=== PATIENT | female | born 1945 | race Caucasian/White ===

== ENCOUNTER 2018-11-09 17:40 | Emergency (ER) | payer MEDICARE, OTHER, SELFPAY ==
[2018-11-09 17:42] VITALS: BP 160/90; PULSE 61; RESP 18; TEMP 36.4; O2SAT 97; BMI 19.7
--- NOTE | 2018-11-09 18:00 | ED.DCSUM_ITS ---
History of Present Illness Chief Complaint: Hypertension Informant: Patient Onset: Today Narrative: Here for evaluation of elevated blood pressure at home. States multiple checks at home noted highest systolic 190s over 90. Patient reports she is been on atenolol twice daily for blood pressure for years, also treatment for palpitations. Reports 2 weeks ago her atenolol was decreased in half due to blood pressure systolic 116's. She reports she saw a functional medicine provider who decreased this. She denied any lightheaded symptoms at that time. Denies headache, chest pains, shortness of breath. No nausea vomiting diarrhea. Reports intermittent over 2 weeks noting urinary urgency. No fevers. Reports that while on the normal 25 mg of atenolol her blood pressure would be 120s 130 systolic. She states had blood draws through functional medicine team 2 weeks ago noted potassium 5.8, unclear if this any renal issues, unclear was hemolyzed, was told to go see her physician. Also reports some intermittent tingling in her bilateral toes. There is no weakness. Prior similar symptoms: No Past Medical History - Allergies and Home Meds Allergies/Adverse Reactions: Allergies No Known Allergies Allergy (Verified 11/09/18 17:41) Primary Care Physician: Rekha Lockwood NP-C [Primary Care Provider] - Smoking Status: Never smoker Review of Systems General: Denies: Chills, Fever, Sweats Eyes: Denies: Visual changes - bilaterally, Diplopia ENT: Denies: Rhinorrhea, Sore throat Cardiovascular: Denies: Chest pain, Palpitations Respiratory: Denies: Dyspnea, Cough, Dyspnea on exertion Gastrointestinal: Denies: Abdominal pain, Nausea, Vomiting, Diarrhea, Melena, Hematochezia Genitourinary: Reports: - - Urgency. Denies: Dysuria, Hematuria, Frequency Musculoskeletal: Denies: Back pain, Extremity Pain Skin: Denies: Rash, Wounds Neurological: Denies: Headache, Weakness, Numbness Physical Exam Vital Signs/Narrative: Vital Signs Temp Pulse Resp BP Pulse Ox 11/09/18 17:42 97.6 F L 61 18 160/90 H 97 Inital Vital Signs reviewed: Yes General: Well nourished, Well developed, No Acute Distress Head: Normocephalic, Atraumatic Eyes: Perrl, EOMI ENT: Moist mucous membranes, No rhinorrhea Neck: Supple, Nontender Cardiovascular: Regular rate, Regular rhythm, No murmurs Respiratory: No distress, CTA bilaterally, Chest nontender Abdomen: Soft, Nontender, Nondistended, Normal bowel sounds Back: Nontender, Normal Inspection Extremities: Nontender, No edema Skin: Normal color, No rash Neurological: Alert, Oriented x3, Cranial nerves II-XII grossly intact, Normal Strength, Normal Sensation Psychological: - - Mild anxious Diagnostic/Tx/Re-eval Abnormal Lab Results 11/09/18 11/09/18 11/09/18 18:07 18:07 18:20 WBC 5.7 RBC 4.26 Hgb 13.3 Hct 38.2 MCV 89.7 MCH 31.2 MCHC 34.8 RDW 13.0 RDW Differential 42.4 Plt Count 209 MPV 9.7 Immature Gran % (Auto) 0.200 Neut % (Auto) 63.8 Lymph % (Auto) 24.5 Sublette % (Auto) 9.9 Eos % (Auto) 0.9 Baso % (Auto) 0.7 Absolute Neuts (auto) 3.6 Absolute Lymphs (auto) 1.39 Total Counted Not Reportable Sodium 127 L Potassium 3.6 Chloride 94 L Carbon Dioxide 27.0 Anion Gap 6 BUN 17 Creatinine 0.77 Estim Creat Clear Calc 45.24 Est GFR (MDRD) Af Amer 95 Est GFR (MDRD) Non-Af 78 BUN/Creatinine Ratio 22.2 H Glucose 96 Calcium 8.7 Urine Color Yellow Urine Clarity Clear Urine pH 7.0 Ur Specific Atwood 1.010 Urine Protein 15 H Urine Glucose (UA) Normal Urine Ketones 50 H Urine Occult Blood 150 H Urine Nitrite Negative Urine Bilirubin Negative Urine Urobilinogen Normal Ur Leukocyte Esterase Negative Urine RBC 5-10 SEEN Urine WBC 0 SEEN Ur Squamous Epith Cells 0-5 SEEN Urine Bacteria 0 SEEN Urine Mucus 0 SEEN - Medical Decision Making Patient nontoxic, vitals stable. Recheck labs potassium 3.6, she is reassured. However sodium 127. She had paperwork with sodium being 134 a week ago. Normal creatinine. She denies any alcohol history. Denies tobacco history. Urine negative for infection did note hematuria. I did send for urine sodium and urine creatinine for evaluation of her hyponatremia. Blood pressure triage 160/90, monitored without intervention 146/75. Discussed with patient checking her blood pressure in the morning and prior to bedtime and keep in a log. She will maintain her current regimen. She is given follow-up with urology due to hematuria. She will see her PCP as scheduled in 3 days for recheck labs and testing as needed. Signs and symptoms discussed to return, significant other was in the room. All questions were answered. ED Disposition - Plan for ED Patient: Disposition: Home or Assisted Living Diagnosis: Elevated blood pressure reading in office with diagnosis of hypertension, Hyponatremia, Hematuria Instructions: HYPERTENSION, Established, Hyponatremia, Hematuria Referrals: Rekha Lockwood NP-C [Primary Care Provider] - Keep Guido appointment Keila Esposito MD [STAFF PHYSICIAN] - 5-7 Days Additional Instructions: Blood pressure 160/90 in triage, repeat 146/75 without treatment. Continue your blood pressure medication. Potassium 3.6. Sodium 127 in the lab, I did send for urine creatinine and urine sodium for further evaluation. Follow-up with your doctor for discussion. Hematuria in urine, no infection. Follow-up with urology for further evaluation.
[2018-11-09 18:21] LABS: Absolute Lymphocyte Count 1.39 X10^3/ul (0.83-4.51); Absolute Neutrophil Count 3.6 X10^3/uL (2.0-7.7); Basophil# 0.04 X10^3/uL; Basophil% 0.7 % (0-1); Eosinophil# 0.05 X10^3/uL; Eosinophils% 0.9 % (0-5); Hematocrit 38.2 % (37-47); Hemoglobin 13.3 g/dl (12.0-15.0); Lymphocyte # 1.39 X10^3/ul (4.0); Lymphocyte % 24.5 % (19-41); Mean Corp Hgb Conc 34.8 g/gl (32-36); Mean Corpuscular Hgb 31.2 pg (27.0-32.0); Mean Corpuscular Volume 89.7 fL (81-99); Mean Platelet Vol. 9.7 fl (6.2-12.0); Monocyte# 0.56 X10^3/uL; Monocyte% 9.9 % (0-10); Neutrophil # 3.63 X10^3/uL (2.7-7.7); Neutrophil % 63.8 % (47-70); Platelet Count 209 K/mm3 (150-450); RBC Distribution Width SD 42.4 fl (35.1-43.9); Red Blood Count 4.26 M/mm3 (4.2-5.4); White Blood Count 5.7 K/mm3 (4.4-11.0)
[2018-11-09 18:22] LABS: POSITIVE COUNT NO; POSITIVE DIFFERENTIAL NO; POSITIVE MORPHOLOGY NO
[2018-11-09 18:25] LABS: Anion Gap 6 (5-15); BUN 17 mg/dL (7-18); BUN/Creat Ratio 22.2 RATIO (10-20); Calcium,Total 8.7 mg/dL (8.5-10.1); Chloride 94 mmol/L (98-107); Creatinine, Serum 0.77 mg/dL (0.55-1.02); EST Glomerular Filtration Rate 78 mL/min (>60); Est Glom Filt Rate - Afr Amer 95 mL/min (>60); Estimated Creatinine Clearance 45.24 ml/min; Glucose 96 mg/dL (74-106); Potassium 3.6 mmol/L (3.5-5.1); Sodium Level 127 mmol/L (136-145)
[2018-11-09 18:25] LABS: Bacteria 0 SEEN /hpf (None Seen); Mucous, Urine 0 SEEN /hpf (<or=2+); White Blood Cells 0 SEEN /hpf (0-5)
[2018-11-09 18:29] LABS: Color, Urine Yellow (Yellow); Glucose, Dipstick Normal (Normal); Ketone-Dipstick 50 mg/dl (Negative); Leukocyte Esterase-Dipstick Negative /ul (Negative); Nitrite-Dipstick Negative (Negative); Occult Blood-Urine 150 /ul (Negative); Protein-Dipstick 15 mg/dl (Negative); Urine Bilirubin Dipstick Negative (Negative); Urine Clarity Clear (Clear); Urine Urobilinogen Normal (Normal)
[2018-11-09 18:35] LABS: Red Blood Cells-Urine 5-10 SEEN /hpf (0-5); Squamous Epithelial Cells - UA 0-5 SEEN /hpf (5-10)
[2018-11-09 20:00] VITALS: BP 151/80
[2018-11-09 20:03] LABS: Urine Sodium 75 mmol/L (Not Establ.)
== END 2018-11-09 19:50 | disposition home or self-care (01) ==
PROVIDERS: Emergency Provider Emergency Medicine; Family Provider Nurse Practitioner Family; PCP Nurse Practitioner Family
DX: I10 Essential (primary) hypertension (principal); E87.1 Hypo-osmolality and hyponatremia; R31.9 Hematuria, unspecified; Z79.899 Other long term (current) drug therapy
CPT/HCPCS: 80048; 81001; 82570; 84300; 85025; 99284; A4216

== ENCOUNTER → 2018-11-11 | Outpatient (CLI) | payer MEDICARE, OTHER, SELFPAY ==
[2018-11-09 17:42] VITALS: BMI 19.7
[2018-11-11 17:54] LABS: Anion Gap 11 (5-15); BUN 17 mg/dL (7-18); BUN/Creat Ratio 21.7 RATIO (10-20); Chloride 98 mmol/L (98-107); Creatinine, Serum 0.78 mg/dL (0.55-1.02); EST Glomerular Filtration Rate 77 mL/min (>60); Est Glom Filt Rate - Afr Amer 93 mL/min (>60); Glucose 97 mg/dL (74-106); Sodium Level 134 mmol/L (136-145)
== END | disposition home or self-care (01) ==
LOC: MTLAB 16:32
PROVIDERS: Family Provider Nurse Practitioner Family; PCP Nurse Practitioner Family; Referring Provider Urology; Visit Provider Urology
DX: E87.1 Hypo-osmolality and hyponatremia (principal)
CPT/HCPCS: 36415; 80048

== ENCOUNTER → 2018-11-19 | Outpatient (CLI) | payer MEDICARE, OTHER, SELFPAY ==
[2018-11-09 17:42] VITALS: BMI 19.7
--- NOTE | 2018-11-19 07:46 | CT_ITS ---
STUDY: CT ABDOMEN AND PELVIS WITH AND WITHOUT CONTRAST REASON FOR EXAM: Female, 73 years old. Hematuria RADIATION DOSAGE (If Supplied By Facility): CTDIvol = ( 7.34 ) mGy, DLP = ( 864.43 ) mGycm TECHNIQUE: Transaxial images were obtained from the dome of the diaphragm to the symphysis pubis without oral contrast. 100 IV Isovue 300 was administered. Sagittal and coronal images were reconstructed. Individualized dose optimization techniques were used for this CT. COMPARISON: None. FINDINGS: The visualized lung bases are unremarkable. The visualized portions of the heart are within normal limits. There is a right hepatic 1 cm hepatic hypodensity as well as a left hepatic 1.1 cm hypodensity, both resolving on the delayed phase. No suspicious appearing hepatic lesions are present. Normal gallbladder and extrahepatic biliary system. Normal spleen. Normal pancreas. Normal bilateral adrenal glands. Normal right kidney. Normal left kidney. There is a left renal 1.3 cm upper pole cyst and 0.9 cm midpole cyst. Normal visualized stomach. Normal small intestine. Normal colon. Colonic diverticulosis is present. Normal abdominal aorta. Normal inferior vena cava. Normal retroperitoneum. Normal urinary bladder. Normal abdominal wall. Normal osseous structures. Moderate degenerative changes are present in the lower lumbar and visualized thoracic spine. CT/CT Abd/Pelvis W/WO Contrast IMPRESSION: No cause for patient's hematuria identified. Left renal cysts. Hepatic hemangiomata measuring up to 1.1 cm. Colonic diverticulosis without evidence of inflammation. Electronically Signed: Dennis Ruff, at 17:09 EDT Tel , Service support ,
== END | disposition home or self-care (01) ==
LOC: CT 07:44
PROVIDERS: Family Provider Nurse Practitioner Family; PCP Nurse Practitioner Family; Referring Provider Urology; Visit Provider Urology
DX: R31.29 Other microscopic hematuria (principal)
CPT/HCPCS: 74178; Q9967

== ENCOUNTER 2019-03-15 05:30 | Day surgery (SDC) | payer MEDICARE, OTHER, SELFPAY ==
[2019-01-24 09:27] VITALS: BMI 19.7
[2019-02-28 14:08] VITALS: BMI 19.7
--- NOTE | 2019-03-10 13:50 | EKG12_ITS ---
Test Reason : PREOP Blood Pressure : / mmHG Vent. Rate : 059 BPM Atrial Rate : 059 BPM P-R Int : 158 ms QRS Dur : 088 ms QT Int : 404 ms P-R-T Axes : 077 073 054 degrees QTc Int : 399 ms Sinus bradycardia Possible Left atrial enlargement Borderline ECG Confirmed by DEIDRA JONES, BHARATH ([id number]), newspaper editor MOUNA BREEN ([id number]) on 03/11/2019 1:25:11 PM Referred By: Akilah Kaur Confirmed By:JENN GAY MD
[2019-03-10 14:45] LABS: Hematocrit 44.5 % (37-47); Hemoglobin 15.3 g/dL (12.0-15.0); Mean Corp Hgb Conc 34.4 g/dL (32-36); Mean Corpuscular Hgb 31.9 pg (27.0-32.0); Mean Corpuscular Volume 92.7 fL (81-99); Mean Platelet Vol. 10.2 fl (6.2-12.0); Platelet Count 301 K/mm3 (150-450); RBC Distribution Width CV 12.5 % (11.6-14.6); White Blood Count 8.8 K/mm3 (4.4-11.0)
[2019-03-10 14:53] LABS: Prothrombin Time (Protime)PT. 12.7 SECONDS (11.7-14.9)
[2019-03-10 14:54] LABS: Partial Thromboplast Time 31.6 Seconds (24.1-36.2)
[2019-03-10 15:40] LABS: ALB/GLOB Ratio 1.3 RATIO (0.9-2.4); AST(SGOT) 20 U/L (15-37); Alanine Aminotransfer ALT/SGPT 34 U/L (13-56); Albumin, Serum 4.3 g/dL (3.2-5.0); Alkaline Phosphatase 62 U/L (45-117); Anion Gap 9 (5-15); BUN 17 mg/dL (7-18); BUN/Creat Ratio 23.5 RATIO (10-20); Bilirubin, Direct 0.08 mg/dL (0.00-0.30); Calcium,Total 9.4 mg/dL (8.5-10.1); Chloride 95 mmol/L (98-107); Creatinine, Serum 0.72 mg/dL (0.55-1.02); EST Glomerular Filtration Rate 84 mL/min (>60); Est Glom Filt Rate - Afr Amer 102 mL/min (>60); Globulin 3.2 g/dL (2.2-4.2); Glucose 116 mg/dL (74-106); Potassium 4.2 mmol/L (3.5-5.1); Protein, Total 7.5 g/dL (6.4-8.2); Sodium Level 130 mmol/L (136-145); Thyroid Stim Hormone (TSH) 1.67 uIU/mL (0.358-3.74)
[2019-03-15] VITALS (17 sets, daily range): BP systolic 73–148; BP diastolic 31–73; PULSE 45–84; RESP 16–18; TEMP 36.1–36.9; O2SAT 97–100; BMI 19.5
--- NOTE | 2019-03-15 04:04 | PCM.HPOB.BLA ---
- Problem List (1) Incomplete uterovaginal prolapse Status: Acute Comment: plan TVH BSO combo case with brian History and Physical Date of Admission: 03/15/19 Intake Vital Signs 02/28/19 Body Mass Index (BMI) 19.7 02/28/19 Height 5 ft 7 in 02/28/19 Weight: 126 lb 02/28/19 Body Mass Index (BMI) 19.7 02/28/19 Blood Pressure 122/72 H Intake Visit Reasons: ERAS TVH BSO Chief Complaint: pre op TVH BSO ERAS Trimming Operator Required: No Is patient in pain?: No Allergies metoprolol Adverse Reaction (Intermediate, Verified 02/28/19 14:08) palpitations Medications amlodipine 5 mg tablet 5 mg PO DAILY 01/24/19 [History Confirmed 02/28/19] ascorbic acid (vitamin C) 500 mg capsule mg PO cap 01/24/19 [History Confirmed 02/28/19] atenolol 25 mg tablet 25 mg PO DAILY 01/24/19 [History Confirmed 02/28/19] calcium-vitamin D3-vitamin K 500 mg-200 unit-40 mcg tablet tab PO tab 01/24/19 [History Confirmed 02/28/19] cod liver oil capsule 1 cap PO DAILY 01/24/19 [History Confirmed 02/28/19] coenzyme Q10 150 mg capsule 150 mg PO DAILY 01/24/19 [History Confirmed 02/28/19] estradiol 0.01% (0.1 mg/gram) vaginal cream 1 g VAGINAL 2XW 01/24/19 [History Confirmed 02/28/19] estradiol-testosterone 2 mg-50 mg/mL intramuscular oil ea IM 01/24/19 [History Confirmed 02/28/19] lactobacillus combination no.8 3 billion cell capsule 3,000 mmu cells PO DAILY 01/24/19 [History Confirmed 02/28/19] lisinopril 10 mg tablet 10 mg PO DAILY 01/24/19 [History Confirmed 02/28/19] magnesium 250 mg tablet 250 mg PO DAILY 01/24/19 [History Confirmed 02/28/19] niacin 500 mg tablet 500 mg PO DAILY 01/24/19 [History Confirmed 02/28/19] Is last menstrual period known: No Post menopausal: Yes Patient : No : No [facility] Medical History Anxiety (Acute) Diverticulitis (Acute) Hypothyroidism (Acute) Mitral valve prolapse (Acute) Hypertension (Chronic) Surgical History Cataract (Acute) H/O adenoidectomy (Acute) H/O cystoscopy (Acute) H/O tubal ligation (Acute) History of shoulder surgery (Acute) History of tonsillectomy (Acute) Family History Mother Diabetes Hypertension CHD (congenital heart disease) Father CVA (cerebral vascular accident) Hypertension Social History (Updated 02/28/19 @ 14:21 by Akilah Kaur MD) Smoking Status: Never smoker alcohol intake: never substance use type: does not use caffeine: Yes what type of physical activity do you participate in: none, walking seatbelt use: always do you feel safe at home: Yes additional social history: [employer] Patient is retired HPI ERAS [facility] BSO: Details: SHYANNE PETTIT is a 73 year old who presents for preop visit. she is having a [facility] BSO for pelvic prolapse combo case with dr torres. Pregancy History 4 Elective abortions Hx Para 3 Spontaneous abortions Hx # Term Pregnancies Ectopic pregnancies Hx # Pregnancies Multiple births # of living children ROS Const Constitutional: Denies fatigue, fever(s), headache(s), increased appetite, poor appetite, weight gain or weight loss ENT ENT: Denies dizziness or dry mouth Cardio Card: Denies chest pain Resp Resp: Denies cough or dyspnea GI GI: Reports as per HPI; denies abdominal pain, constipation, nausea or vomiting : Reports as per HPI; denies difficulty urinating, painful urination, pelvic pain, urinary frequency, urinary incontinence, urinary hesitancy, urinary urgency, vaginal discharge, vaginal dryness, vaginal odor or vaginal itching Musc Musc: Denies joint pain, back pain or muscle weakness Skin Skin/Breast: Denies hair loss, change in hair, dry skin, breast lump, breast pain or breast skin changes Neuro Neuro: Denies dizziness Psych Psych: Denies anxiety or depression Endo Endo: Denies cold intolerance, excessive sweating, heat intolerance or increased thirst Fredi/Lymph Hematologic/Lymphatic: Denies easy bleeding, Denies easy bruising, Denies enlarged lymph nodes Exam Const General: cooperative, healthy appearing, comfortable, no acute distress, well developed Nutritional Appearance: average body habitus Orientation: alert HENMO Head: normal to inspection, normocephalic Ears: hearing grossly normal bilaterally, external ears normal Nose: external nose normal, nares normal Face and sinus: normal facial exam Neck Neck: normal visual inspection, no lymphadenopathy, trachea midline Thyroid: thyroid normal Chest Chest palpation & inspection: normal inspection of the chest Resp Effort & Inspection: normal respiratory effort Auscultation: clear to auscultation bilaterally Cardio Rate: regular rate Rhythm: regular rhythm Heart Sounds: S1 normal, S2 normal GI Inspection: normal to inspection, non-distended Palpation: soft, no hepatosplenomegaly General: bladder normal to palpation External Female Exam: normal external appearance, normal appearance of the urethra Urethra: normal appearance of the urethra, normal palpation, no discharge Speculum Exam - Vagina: normal appearance of the vagina, normal vaginal discharge Speculum Exam - Cervix: normal appearance of the cervix, nontender Bimanual Exam- Vagina & Uterus: normal bimanual exam, normal vaginal palpation, uterine size normal, bladder normal to palpation, uterine shape normal, No cervical tenderness, uterine mobility normal, uterine consistency normal, normal cervical palpation, uterus non-tender Bimanual Exam- Adnexa, other: normal adnexae, adnexae mobile, no adnexal masses, pelvic support normal Pelvic Support: normal Musc Cervical Spine: other Other: gross motor intact no deficits, full bilateral strength Skin General: no rashes or lesions noted Neuro General: alert, awake, moves all extremities, no focal motor deficits Motor: muscle tone normal throughout Extrem General: normal to inspection, no pedal edema Psych Appearance: grossly normal Mental Status: mental status grossly normal Affect: normal affect Speech and Movement: speech and movement normal Assessment & Plan Problems 1. Incomplete uterovaginal prolapse N81.2 plan TV BSO combo case with brian Ferguson After discussing the patient's diagnosis and treatment plan options, patient wishes to proceed with surgical management. I have discussed with the patient the risks, benefits, and alternatives of the procedure which include but are not limited to risks of anesthesia, bleeding, infection, possible damage to bowel, bladder, or surrounding vasculature which could lead to additional surgery to evaluate any complications. Patient agrees to procedure and wishes to proceed. ACOG/uptodate references given for additional information regarding procedure. Coding Level of Care Code No Charge Diagnoses Incomplete uterovaginal prolapse N81.2
[2019-03-15 06:26] LABS: Bedside Glucose 87 mg/dL (70-110)
[2019-03-15] MEDS: dexAMETHasone 10 MG/ML Vial 8 MG IV (07:00)
[2019-03-15] MEDS: Magnesium Sulfate 4gm/100mL 4 GM/100 ML IV.SOLN. IV (07:00)
[2019-03-15] MEDS: Enoxaparin 40 MG/0.4 ML Syringe SC (07:00)
[2019-03-15] MEDS: Celecoxib 200 MG Capsule 400 MG PO (07:00)
[2019-03-15] MEDS: Scopolamine 1mg/72hr Patch 1 PATCH TRANSDERM. (07:00)
[2019-03-15] MEDS: Gabapentin 600 MG Tablet PO (07:00)
[2019-03-15] MEDS: Acetaminophen 500 MG Tablet 1000 MG PO (07:00)
[2019-03-15] MEDS: Lactated Ringers 1,000 ML 40 ML IV (07:00)
--- NOTE | 2019-03-15 07:30 | HYST_PTH ---
PATIENT: SHYANNE PETTIT LOC: [facility] [place] U#:[id number] AGE/SX: 73/F ROOM: RE03/15/[address]: Dr. Akilah Kaur MD : 1945 BED: DIS: 03/16/2019 SPEC #: [id number] RECD: 03/15/19 11:02 STATUS: CASSIDY RENestor #: [id number] ASHLEY: 03/15/19 07:[address]: Akilah Kaur DEPT: SURGICAL PATHOLOGY RECD BY: Waylon Grace ENTERED: 03/15/19 11:14 SP TYPE: HYSTERECT OTHR DR: MD Dr. Keila Marie MD Debra Lehr, FRUIT HARVESTER-C Tissues: Uterus, NOS Procedures: Surgery Specimen Level V HEADER OPERATION: ERAS, vaginal hysterectomy, BSO PRE-OP DIAGNOSIS: Incomplete uterovaginal prolapse TISSUE SUBMITTED: Uterus, bilateral fallopian tubes and ovaries MICROSCOPIC DIAGNOSIS Uterus, hysterectomy: Cervix - nabothian cysts. Endometrium - proliferative endometrium with focal simple cystic hyperplasia without atypia. Myometrium - microscopic leiomyoma and focal adenomyosis. Right and left ovaries - corpora albicantia. Right and left fallopian tubes - hydrosalpinx and benign paratubal cyst. AM:chey 03/16/19 COMMENT Case has been reviewed in consultation with Dr. Alcaraz who concurs with the above diagnosis. IDC:LARRY MICROSCOPIC DESCRIPTION Slides are reviewed. GROSS DESCRIPTION Received in fixative is one container labeled with the patient's name and designated uterus. The specimen consists of a uterus with attached cervix, detached fallopian tube and ovary x2, one of which contains a suture. The uterus with cervix measures 11 x 5.5 x 4 cm and weighs 98 gm. The ectocervix is oval and grossly unremarkable. The endocervical canal measures 5.5 cm in length and is grossly unremarkable. The triangular endometrial cavity measures 4 x 4.5 x 2.5 cm. The reddish-bar endometrium measures 0.1 cm in average thickness. The myometrium measures 2.2 cm in average thickness and contains a rubbery, bar nodule measuring 0.8 cm and present in the inferior endometrium. The fallopian tube without suture measures 3 cm in length and 0.6 cm in average diameter including a smooth, glistening cyst measuring 1 cm in greatest dimension. The adjacent ovary is light bar in color and measures 4.2 x 1.5 x 1 cm. Serial sections of the ovary do not reveal mass lesions. The fallopian tube with suture measures 5 cm in length and 0.6 cm in average diameter and is disrupted in its mid portion. The adjacent ovary is light yellow-bar in color measuring 3 x 1.6 x 1 cm. Serial sections of the ovary do not reveal mass lesions. Executive Producer sections are submitted as follows: 1 - anterior cervix, 2?- posterior cervix, 3 - anterior uterine wall with myometrial mass, 4 - anterior myometrial wall, 5?&?6??posterior myometrial wall, 7 - fallopian tube without suture, sectioned and totally submitted, 8??ovary adjacent to fallopian tube with no suture, 9 - fallopian tube with no suture, personal banking representative sections, 10 - ovary adjacent to fallopian tube with suture, personal banking representative sections. / AM:chey 03/15/19 TC:5 CPT: 95026
[2019-03-15] MEDS: Lubricating Jelly 60 GM Tube 30 GM TOPICAL (08:05)
[2019-03-15] MEDS: Vasopressin 20 UNITS/ML Vial (08:11)
--- NOTE | 2019-03-15 10:31 | PCM.OPRPT ---
Problem List (1) Incomplete uterovaginal prolapse Status: Acute Comment: plan TVH BSO combo case with brian Report of Operation Date of Procedure: 03/15/19 Pre-Operative Diagnosis: Incomplete uterovaginal prolapse Post-Operative Diagnosis: Same Surgery/Procedure Performed:: TVH BSO Description of Surgical Findings:: Normal uterus tubes and ovaries right paratubal cyst hoop maker helper machine: Keila Esposito Type of Anesthesia:: General Special Medications: none Specimen's removed: Uterus tubes and ovaries Drains: schmidt Estimated Blood Loss (mL): 50 Fluids Replaced: Crystalloid Description of Procedure: Patient was taken to the operating room and was placed under general anesthesia was prepped and draped in normal sterile fashion in the dorsal lithotomy position. Preoperative antibiotics and SCDs and Schmidt catheter was placed inside the bladder. Weighted speculum was placed in the vagina and the anterior and posterior lip of the cervix was grasped with 2 Jose clamps and circumferentially injected with dilute vasopressin. A circumferential incision was made with a scalpel and the posterior cul-de-sac was entered into sharply and a longneck speculum was placed. The anterior cul-de-sac was also dissected down and entered into sharply and the uterosacral ligaments were clamped cut and suture ligated bilaterally followed by the cardinal ligaments which were Clamped cut and suture ligated bilaterally with 0 Monocryl. The uterus serially descended and progressive bites were taken bilaterally up to the level of the utero-ovarian ligament bilaterally which was clamped transected and double ligated with 0 Monocryl suture and 0 Vicryl free tie. Bilateral fallopian tubes and ovaries were well visualized and noted be within normal limits and the bilateral fallopian tubes and ovaries were transected across the base with a Keke clamp and removed and sutured with 0 Vicryl suture. Excellent hemostasis was noted. Posterior peritoneum was reapproximated through the posterior vaginal cuff and bilateral uterosacral ligaments across the posterior cul-de-sac skimming along to provide apical support to the vagina. The vagina was closed with [id number] 0 Vicryl pop offs including the posterior and anterior peritoneum in the reapproximation. Excellent hemostasis was noted. All instruments removed from the vagina clear urine was noted at the end of the procedure. Please see additional operative report for additional information. Multi Select Codes - Urinary/Genital Urinary/Genital CPT Codes: 94908 TVH+BS/O <250gr uterus
[2019-03-15] MEDS: Estrogens,Conj. 1 Tube 1 DOSE (11:05)
[2019-03-15] MEDS: Lactated Ringers 1,000 ML 70 ML IV (12:00)
[2019-03-15] MEDS: Ondansetron 4 MG/2 ML Vial IV (12:01)
--- NOTE | 2019-03-15 12:48 | PCM.OPRPT ---
Problem List (1) Urethral hypermobility Status: Acute (2) Incomplete uterovaginal prolapse Status: Acute Comment: plan TVH BSO combo case with brian Report of Operation Date of Procedure: 03/15/19 Pre-Operative Diagnosis: Incomplete uterovaginal prolapse, urethral hypermobility Post-Operative Diagnosis: same Surgery/Procedure Performed:: posterior repair, bilateral sacrospinous ligament fixation with Dermis, Altis midurethral sling, cystoscopy Description of Surgical Findings:: no significant anterior wall defect noted, anterior repair aborted. Type of Anesthesia:: General Estimated Blood Loss (mL): 150cc Description of Procedure: The patient is a 73-year-old female with incomplete uterovaginal prolapse. After evaluating her, she decided against a pessary and opted for surgical intervention. She subsequently underwent urodynamics testing and office cystoscopy. Informed consent was obtained. She was taken to the operating room and placed on the operating room table. Anesthesia monitored the head, neck, airway, IV access and vital signs throughout the case. Once anesthesia was appropriately administered, the patient was placed into exaggerated dorsal lithotomy in Trendelenburg position. She was prepped and draped in usual sterile fashion. A 16 Irish Velázquez catheter was inserted and the bladder was drained. The hysterectomy, bilateral salpingo-oophorectomy was then performed by Dr. Kaur. She closed the vaginal cuff. Once this was complete, the case was turned to me. At this time the patient had significantly longer posterior vault length compared to anteriorly. I made the decision to repair her posterior wall with dermis and perform the sacrospinous ligament fixation from the posterior aspect to maintain her vault length. The posterior vaginal wall was injected submucosally with vasopressin for hydrostatic dissection and hemostatic control. A midline incision was made and sharp and blunt dissection ensued until the sacrospinous ligaments were freed bilaterally from surrounding tissues. There was no significant rectovaginal fascia at all. The dermis was trimmed to length and using the Capio device, bilaterally Ethibond sutures were passed through the sacrospinous ligaments, and then through the dermis at the corners. A 2-0 Vicryl was used in full-thickness fashion to attach the center of the dermis to the apex. The Ethibond sutures were then also passed through the vaginal mucosa in full-thickness fashion at the apex laterally. The dermis was sutured laterally to the white line bilaterally, using interrupted 2-0 Vicryl. A perineoplasty was then performed. The dermis was tacked with a 2-0 Vicryl suture at the perineoplasty. The vaginal mucosa was then closed in running interlocking fashion with 2-0 Vicryl suture. The midline urethra was injected with vasopressin submucosally and a midline incision approximately 1.5 cm in length was then made. Sharp and blunt dissection was done bilaterally and the Altis trochars were used to pass the urethral sling into the obturator fascia bilaterally. The sling lay flat against the urethra without tension. The tensioning suture was cut and the mucosa was closed in running interlocking fashion. A cystourethroscopy was performed revealing no entrance into the urinary bladder with any foreign object including suture or mesh. Bilateral ureteral jets were observed. The patient's bladder was then emptied with replacement of the Velázquez catheter. The vagina was packed using Premarin cream and vaginal packing. There were no complications during the procedure. She was taken to the recovery room in good condition. Grafts/Implants Used: Dermis, Altis - Complications none - Admit VTE Documentation VTE Present on Admission: Yes VTE Mechan Device Prophylaxis: SCD's VTE Pharm Prophylaxis ordered?: Yes
--- NOTE | 2019-03-15 13:42 | DCINST_ITS ---
Discharge Diet: No Restrictions Discharge Activity: May Shower, - - no driving for 2 weeks May resume sexual activity in: 8 weeks Additional Activity Instructions:: No lifting over 5 pounds, no strenuous activity, no exercising, no intercourse, okay to shower but no tub bathing or swimming, nothing per vagina except she is to continue use of the estrogen cream Call your doctor if your incision/area has: Continuous Slow Oozing, Increased Pain/ Swelling, Foul Smelling Discharge Call your doctor if you observe: Fever of 101 or Higher, Inability to urinate, Inability to have a bowel movement, Shortness of breath, Chest pain, Calf dis comfort, Uncontrolled pain Allergies/Adverse Reactions: Allergies metoprolol Adverse Reaction (Intermediate, Verified 03/15/19 07:41) palpitations Medications to take at Discharge ascorbic acid (vitamin C) 500 mg capsule 500 mg PO DAILY cap 01/24/19 atenolol 25 mg tablet 25 mg PO QHS 01/24/19 cod liver oil capsule 1 cap PO DAILY 01/24/19 coenzyme Q10 150 mg capsule 150 mg PO DAILY 01/24/19 estradiol 0.01% (0.1 mg/gram) vaginal cream 1 g VAGINAL 2XW 01/24/19 lactobacillus combination no.8 3 billion cell capsule 3,000 mmu cells PO DAILY 01/24/19 lisinopril 10 mg tablet 20 mg PO DAILY 01/24/19 magnesium 250 mg tablet 250 mg PO DAILY 01/24/19 Homocysteine Factors 1 cap PO BID 03/08/19 Hydroxyzine HCl 25 mg PO PRN PRN 03/08/19 Meth/Meblue/Sod Phos/Psal/Hyos [Uro-Mp Capsule] 1 ea PO PRN PRN 03/08/19 Vitamin D3/Vitamin K2 (Mk4) [K2 Plus D3 Tablet] 1 ea PO DAILY 03/08/19 Naproxen [Naprosyn] 250 - 500 mg PO Q8H PRN PRN #30 tab 03/15/19 Oxycodone HCl/Acetaminophen [Percocet 5-325] 1 - 2 tab PO Q6H PRN PRN 7 Days #15 tab 03/15/19 The following prescriptions were given: Naproxen [Naprosyn] 250 - 500 mg PO Q8H PRN PRN #30 tab PRN Reason: MILD PAIN [facility]: [facility]. Oxycodone HCl/Acetaminophen [Percocet 5-325] 1 - 2 tab PO Q6H PRN PRN 7 Days #15 tab PRN Reason: Pain Transmission Status: Received by [facility]. Orders to be completed after discharge: Type & Screen Time Frame: 03/08/19, Facility: [facility], Location: Laboratory 12 Lead EKG [CVS] Time Frame: 03/08/19, Facility: [facility], Location: Cardiovascular Services CBC-Complete Blood Cnt No Diff Time Frame: 03/08/19, Facility: [facility], Location: Laboratory Comprehensive Metabolic Profil Time Frame: 03/08/19, Facility: [facility], Location: Laboratory Primary Care Physician: Rekha Lockwood NP-C [Primary Care Provider] - Test Results: Test results from this visit will be discussed in further detail at your follow- up appointment, if applicable. Please Follow Up With: Keila Esposito MD When: call for appt to be seen in 2 weeks Proposed Discharge Date: 03/16/19
[2019-03-15] MEDS: Ketorolac 15 MG/ML Vial IV ×2 (13:53→17:17)
[2019-03-15] MEDS: Ondansetron ODT 4 MG Tablet PO (14:56)
[2019-03-15] MEDS: proMETHazine 25 MG/ML Syringe 12.5 MG IV (17:14)
[2019-03-15] MEDS: Docusate Sodium 100 MG Capsule PO (21:46)
[2019-03-15] MEDS: Cephalexin 500 MG Capsule PO (21:46)
[2019-03-15] MEDS: Lactated Ringers 500 ML IV.SOLN. IV (23:03)
[2019-03-16] VITALS (11 sets, daily range): BP systolic 87–129; BP diastolic 36–55; PULSE 65–80; RESP 16–18; TEMP 36.6–36.7; O2SAT 96–100; BMI 19.5
[2019-03-16] MEDS: Ketorolac 15 MG/ML Vial IV ×2 (00:09→11:23)
[2019-03-16] MEDS: Lactated Ringers 1,000 ML 70 ML IV ×2 (01:24→07:25)
[2019-03-16 05:41] LABS: Hemoglobin 8.9 g/dL (12.0-15.0); Mean Corp Hgb Conc 34.2 g/dL (32-36); Mean Corpuscular Hgb 31.8 pg (27.0-32.0); Mean Corpuscular Volume 92.9 fL (81-99); Mean Platelet Vol. 9.9 fl (6.2-12.0); Platelet Count 197 K/mm3 (150-450); RBC Distribution Width CV 12.3 % (11.6-14.6); RBC Distribution Width SD 42.2 fl (35.1-43.9); White Blood Count 14.1 K/mm3 (4.4-11.0)
--- NOTE | 2019-03-16 07:04 | PCM.PN.OB ---
Patient Problems: Active and Suspected Problems (Last Reviewed 02/28/19 @ 14:08 by Gissel Luis) Urethral hypermobility (Acute) Postoperative anemia due to acute blood loss (Acute) Subjective: pain controlled no CP SOB, significant N/V overnight but now resolved. denies dizziness or lightheadedness but Hg dropped significantly this morning recommend take back for diagnostic laparoscopy - Physical Exam Vitals/I&O's: Vital Signs Temp Pulse Resp BP Pulse Ox 97.8 F 69 16 93/43 L 100 03/16/19 05:50 03/16/19 05:50 03/16/19 05:50 03/16/19 05:50 03/16/19 05:50 Oxygen Flow Rate (L/min) 6 Oxygen Delivery Method Room Air Weight: 124 lb 12.506 oz Body Mass Index (BMI) 19.5 Intake and Output for Last 24 Hours 03/14/19 03/15/19 03/16/19 23:59 23:59 23:59 Intake Total 2575.67 / 2695.67 742.33 / 742.33 Output Total 700 / 1025 625 / 625 Balance 1875.67 / 1670.67 117.33 / 117.33 General: Alert, Oriented x3 Cardiovascular: Regular rate, Regular Rhythm Abdomen: Soft, Non Tender, Non-Distended Laboratory Results 03/15/19 05:55: Crossmatch See Detail 03/16/19 05:14: WBC 14.1 H, RBC 2.80 L, Hgb 8.9 L, Hct 26.0 L, MCV 92.9, MCH 31.8, MCHC 34.2, RDW Std Deviation 42.2, RDW Coeff of Mirza 12.3, Plt Count 197, MPV 9.9 Current Medications Acetaminophen (Tylenol) 1,000 mg PO Q6 [facility] Last Admin: 03/16/19 06:11 Dose: Not Given Documented by: Cephalexin (Keflex) 500 mg PO Q12 [facility] Last Admin: 03/15/19 21:46 Dose: 500 mg Documented by: Docusate Sodium (Colace) 100 mg PO BID [facility] Last Admin: 03/15/19 21:46 Dose: 100 mg Documented by: Enoxaparin Sodium (Lovenox) 40 mg SC DAILY [facility] Lactated Ringer's () 1,000 mls @ 70 mls/hr IV .[id number] [facility] Stop: 03/16/19 11:50 Last Admin: 03/16/19 01:24 Dose: 70 mls/hr Documented by: Ketorolac Tromethamine (Toradol) 15 mg IV Q6 [facility] Stop: 03/16/19 18:01 Last Admin: 03/16/19 06:31 Dose: Not Given Documented by: Magnesium Oxide (Mag-Ox 400) 400 mg PO DAILY PRN PRN PRN Reason: Constipation Nutritional Formula (Lactose Free) (Ensure Enlive) 120 ml PO TIDCM [facility] Ondansetron HCl (Zofran Odt) 4 mg PO Q6H PRN PRN PRN Reason: NAUSEA Last Admin: 03/15/19 14:56 Dose: 4 mg Documented by: Oxycodone HCl (Oxyir) 5 - 10 mg PO Q4H PRN PRN PRN Reason: Pain Score 4-10/10 Promethazine HCl (Phenergan) 12.5 mg IV Q6H PRN PRN PRN Reason: NAUSEA/VOMITING Last Admin: 03/15/19 17:14 Dose: 12.5 mg Documented by: Medical Necessity - Tobacco Use Smoking Status: Never smoker Assessment/Plan All Active Problems (Last Reviewed 02/28/19 @ 14:08 by Gissel Luis) Urethral hypermobility (Acute) Postoperative anemia due to acute blood loss (Acute) Incomplete uterovaginal prolapse (Acute) pod 1 post tvh bso, pelvic floor repair and sling, recommend diagnostic laparoscopy possible laparotomy to evaluate postoperative anemia
[2019-03-16] MEDS: Bupivacaine Mpf 0.5% 30 ML VIAL (07:53)
--- NOTE | 2019-03-16 08:47 | PCM.OPRPT ---
Problem List (1) Incomplete uterovaginal prolapse Status: Acute Comment: plan TVH BSO combo case with brian Report of Operation Date of Procedure: 03/16/19 Pre-Operative Diagnosis: postoperative anemia Post-Operative Diagnosis: same Surgery/Procedure Performed:: diagnostic laparoscopy Description of Surgical Findings:: clot in pelvis, no active bleeding. equipment maint tech: Keila Esposito Type of Anesthesia:: General Special Medications: floseal Specimen's removed: clot Drains: none Estimated Blood Loss (mL): 500 Fluids Replaced: crystalloid Description of Procedure: Patient was taken the operating room and placed under general anesthesia prepped and draped in normal sterile fashion in the dorsolithotomy position. Velázquez catheter was already previously in the bladder. Sponge stick was placed in the vagina. Umbilical area was injected with half percent Marcaine and elevated with towel clamps and a 5 mill meter port was placed under direct visualization after the abdomen was insufflated with a varies needle. Right left lower quadrant ports 5 mm in size were placed and cul-de-sac was well visualized and noted to have old organized clot present with no active areas of bleeding seen. The areas were irrigated and all present blood suctioned and removed. Pressure was let down and again the areas were not noted to have any active bleeding. FloSeal was placed over the top of the cuff due to the clinical presentation and history and excellent hemostasis was noted. All port sites were removed and patient was awoken taken recovery in stable condition after the vaginal manipulator was removed and vaginal sweep was negative. - Admit VTE Documentation VTE Present on Admission: No VTE Mechan Device Prophylaxis: SCD's Multi Select Codes - Urinary/Genital Urinary/Genital CPT Codes: Other Procedure See Report - diagnostic laparoscopy
[2019-03-16] MEDS: Cephalexin 500 MG Capsule PO (09:34)
[2019-03-16] MEDS: Docusate Sodium 100 MG Capsule PO (09:34)
[2019-03-16] MEDS: Acetaminophen 500 MG Tablet 1000 MG PO ×2 (11:23→17:14)
[2019-03-16 11:29] LABS: Absolute Lymphocyte Count 0.76 X10^3/uL (0.83-4.51); Absolute Neutrophil Count 13.1 X10^3/uL (2.0-7.7); Basophil# 0.01 X10^3/uL; Basophil% 0.1 % (0-1); Hematocrit 29.2 % (37-47); Hemoglobin 9.8 g/dL (12.0-15.0); Lymphocyte # 0.76 X10^3/ul (4.0); Lymphocyte % 5.3 % (19-41); Mean Corp Hgb Conc 33.6 g/dL (32-36); Mean Corpuscular Hgb 31.6 pg (27.0-32.0); Mean Corpuscular Volume 94.2 fL (81-99); Mean Platelet Vol. 9.1 fl (6.2-12.0); Monocyte# 0.44 X10^3/uL; Monocyte% 3.1 % (0-10); NRBC Flagged by Analyzer 0 % (0-5); Neutrophil # 13.09 X10^3/uL (2.7-7.7); Neutrophil % 90.7 % (47-70); Platelet Count 209 K/mm3 (150-450); RBC Distribution Width CV 12.5 % (11.6-14.6); White Blood Count 14.4 K/mm3 (4.4-11.0)
[2019-03-16 11:42] LABS: Anion Gap 9 (5-15); BUN 9 mg/dL (7-18); BUN/Creat Ratio 9.2 RATIO (10-20); Calcium,Total 8.3 mg/dL (8.5-10.1); Chloride 97 mmol/L (98-107); Creatinine, Serum 0.98 mg/dL (0.55-1.02); EST Glomerular Filtration Rate 59 mL/min (>60); Est Glom Filt Rate - Afr Amer 72 mL/min (>60); Estimated Creatinine Clearance 45.68 ml/min; Glucose 129 mg/dL (74-106); Potassium 4.3 mmol/L (3.5-5.1); Sodium Level 131 mmol/L (136-145)
[2019-03-16] MEDS: BENZOCAINE/MENTHOL 1 LOZENGE MUCOUS MEM ×2 (14:02→16:16)
--- NOTE | 2019-03-16 16:51 | NURSING ---
Pt voiding but states feels urge to void q hour. Asked pt to void, voided 200cc bladder scanned for 741. Pt denies urge to void. Attempted to straight cath pt began having vaginal bleeding, call placed to Doctor Vincent whom stated she would be on her way in to see this patient and asked that this nurse call Dr. Quarles. Call placed and explained x2 nurses unable to place straight cath d/c swelling and pt having vaginal bleeding. Dr quarles states to place schmidt in room and she will come in and place schmidt cath.
--- NOTE | 2019-03-16 17:56 | PCM.PN.GU ---
Physical Exam Subjective: The patient is awake, ambulatory and tolerating p.o. She would like to be discharged home today. She is concerned about her blood pressure and how to take her blood pressure medications. Her nausea has resolved and her vaginal bleeding has significantly improved. She has been voiding more volume with each void, however she is still leaking urine. - Physical Exam Vital Signs Temp 98.1 F 03/16/19 13:36 Pulse 80 03/16/19 13:36 Resp 18 03/16/19 13:36 BP 129/50 H 03/16/19 13:36 Pulse Ox 97 03/16/19 13:36 Intake & Output 03/14/19 03/15/19 03/16/19 23:59 23:59 23:59 Intake Total 2575.67 / 2695.67 5016.50 / 5016.50 Output Total 700 / 1025 1775 / 1775 Balance 1875.67 / 1670.67 3241.50 / 3241.50 Weight: 56.6 kg 56.6 kg Intake: Oral 3180 / 3180 IV fluid/meds 1000 / 1000 Intake, IV Amount 1575.67 / 1575.67 1836.50 / 1836.50 Cefotan 2 GM In 0.9% Normal 100 / 100 Saline 100 ML @ 200 mls/hr IV PREOP ONE Rx#:[id number] Lactated Ringers 1,000 ML @ 40 1000 / 1000 mls/hr IV .Q25H [facility] Rx#: [id number] Lactated Ringers 1,000 ML @ 70 375.67 / 375.67 1836.50 / 1836.50 mls/hr IV .[id number] [facility] Rx#: [id number] Magnesium Sulfate 4gm/100mL 4 100 / 100 GM/100 ML4 gm In 100 ml @ 200 mls/hr IV PREOP ONE Rx#: [id number] Output: Urine 700 / 1025 1775 / 1775 General: Alert, Oriented x3, Cooperative HEENT: Atraumatic, Normocephalic Oral: Moist Mucosa Neck: Supple Lungs: Normal air movement Cardiovascular: Regular rate, Regular Rhythm Abdomen: Soft Rectal: Exam deferred Neurological: Cranial nerves II-XII grossly intact Psych/Mental Status: Normal Affect Comment: schmidt inserted for 1200cc out after 500cc void. Laboratory Tests Past 24 Hrs 03/15/19 03/16/19 03/16/19 05:55 05:14 11:20 WBC 14.1 H 14.4 H RBC 2.80 L 3.10 L Hgb 8.9 L 9.8 L Hct 26.0 L 29.2 L MCV 92.9 94.2 MCH 31.8 31.6 MCHC 34.2 33.6 RDW Std Deviation 42.2 43.0 RDW Coeff of Mirza 12.3 12.5 Plt Count 197 209 MPV 9.9 9.1 Immature Gran % (Auto) 0.800 Neut % (Auto) 90.7 H Lymph % (Auto) 5.3 L Shackelford % (Auto) 3.1 Eos % (Auto) 0.0 Baso % (Auto) 0.1 Absolute Neuts (auto) 13.1 H Absolute Lymphs (auto) 0.76 L Nucleated RBC % 0 Sodium Potassium Chloride Carbon Dioxide Anion Gap BUN Creatinine Estim Creat Clear Calc Est GFR (MDRD) Af Amer Est GFR (MDRD) Non-Af BUN/Creatinine Ratio Glucose Calcium Crossmatch See Detail 03/16/19 11:20 WBC RBC Hgb Hct MCV MCH MCHC RDW Std Deviation RDW Coeff of Mirza Plt Count MPV Immature Gran % (Auto) Neut % (Auto) Lymph % (Auto) Shackelford % (Auto) Eos % (Auto) Baso % (Auto) Absolute Neuts (auto) Absolute Lymphs (auto) Nucleated RBC % Sodium 131 L Potassium 4.3 Chloride 97 L Carbon Dioxide 25.0 Anion Gap 9 BUN 9 Creatinine 0.98 Estim Creat Clear Calc 45.68 Est GFR (MDRD) Af Amer 72 Est GFR (MDRD) Non-Af 59 L BUN/Creatinine Ratio 9.2 L Glucose 129 H Calcium 8.3 L Crossmatch Medical Necessity - Tobacco Use Smoking Status: Never smoker Assessment/Plan All Active Problems (Last Reviewed 02/28/19 @ 14:08 by Gissel Luis) Postoperative anemia due to acute blood loss (Acute) Urethral hypermobility (Acute) Incomplete uterovaginal prolapse (Acute) Postop day 1 pelvic floor reconstruction, vaginal hysterectomy bilateral salpingo-oophorectomy, mid urethral sling and cystoscopy Exploratory laparoscopy this morning Postop urinary retention Home this evening with Schmidt catheter to straight drain. Instructions to follow-up with me in the office on Thursday. We will go home on half her blood pressure medication dose her blood pressure and we will reevaluate on Thursday
--- NOTE | 2019-03-16 18:04 | DCINST_ITS ---
Discharge Activity: May Not Drive, May Shower, - - no driving for 2 weeks, no strenuous activity, no exercise, no lifting over 5 pounds, nothing per vagina except estrogen cream May resume sexual activity in: 8 weeks Additional Activity Instructions:: No lifting over 5 pounds, no strenuous activity, no exercising, no intercourse, okay to shower but no tub bathing or swimming, nothing per vagina except she is to continue use of the estrogen cream Call your doctor if your incision/area has: Continuous Slow Oozing, Increased Pain/ Swelling, Foul Smelling Discharge Call your doctor if you observe: Fever of 101 or Higher, Inability to urinate, Inability to have a bowel movement, Shortness of breath, Chest pain, Calf discomfort, Uncontrolled pain Additional Instructions: remove schmidt catheter Thursday. Allergies/Adverse Reactions: Allergies metoprolol Adverse Reaction (Intermediate, Verified 03/15/19 07:41) palpitations Medications to take at Discharge ascorbic acid (vitamin C) 500 mg capsule 500 mg PO DAILY cap 01/24/19 cod liver oil capsule 1 cap PO DAILY 01/24/19 coenzyme Q10 150 mg capsule 150 mg PO DAILY 01/24/19 estradiol 0.01% (0.1 mg/gram) vaginal cream 1 g VAGINAL 2XW 01/24/19 lactobacillus combination no.8 3 billion cell capsule 3,000 mmu cells PO DAILY 01/24/19 lisinopril 10 mg tablet 20 mg PO DAILY 01/24/19 magnesium 250 mg tablet 250 mg PO DAILY 01/24/19 Homocysteine Factors 1 cap PO BID 03/08/19 Meth/Meblue/Sod Phos/Psal/Hyos [Uro-Mp Capsule] 1 ea PO PRN PRN 03/08/19 Vitamin D3/Vitamin K2 (Mk4) [K2 Plus D3 Tablet] 1 ea PO DAILY 03/08/19 Naproxen [Naprosyn] 250 - 500 mg PO Q8H PRN PRN #30 tab 03/15/19 Oxycodone HCl/Acetaminophen [Percocet 5-325] 1 - 2 tab PO Q6H PRN PRN 7 Days #15 tab 03/15/19 Atenolol [Tenormin (beta rochelle)] 25 mg PO QHS #0 03/16/19 Cephalexin [Keflex] 500 mg PO Q12 3 Days #6 cap 03/16/19 Docusate Sodium [Colace] 100 mg PO BID #60 cap 03/16/19 Hydroxyzine HCl 25 mg PO PRN PRN #0 03/16/19 Ondansetron [Zofran Odt] 4 mg PO Q6H PRN PRN #20 tab 03/16/19 Phenazopyridine HCl [Pyridium] 200 mg PO TID PRN PRN 7 Days #30 tab 03/16/19 The following prescriptions were given: Docusate Sodium [Colace] 100 mg PO BID #60 cap Prescription Printed Cephalexin [Keflex] 500 mg PO Q12 3 Days #6 cap Prescription Printed Naproxen [Naprosyn] 250 - 500 mg PO Q8H PRN PRN #30 tab PRN Reason: MILD PAIN Transmission Status: Received [place] [id number] [address] [facility]. Oxycodone HCl/Acetaminophen [Percocet 5-325] 1 - 2 tab PO Q6H PRN PRN 7 Days #15 tab PRN Reason: Pain [facility] Status: [facility] [place] [id number] [address] [facility]. Phenazopyridine HCl [Pyridium] 200 mg PO TID PRN PRN 7 Days #30 tab PRN Reason: Bladder Spasms Prescription Printed Ondansetron [Zofran Odt] 4 mg PO Q6H PRN PRN #20 tab PRN Reason: NAUSEA Prescription Printed Orders to be completed after discharge: Type & Screen Time Frame: 03/08/19, Facility: [facility], [facility] ation: Laboratory 12 Lead EKG [CVS] Time Frame: 03/08/19, Facility: [facility], Location: Cardiovascular Services CBC-Complete Blood Cnt No Diff Time Frame: 03/08/19, Facility: [facility], Location: Laboratory Comprehensive Metabolic Profil Time Frame: 03/08/19, Facility: [facility], Location: Laboratory Primary Care Physician: Rekha Lockwood NP-C [Primary Care Provider] - Test Results: Test results from this visit will be discussed in further detail at your follow- up appointment, if applicable. Please Follow Up With: Keila Esposito MD When: Thursday afternoon, call for appt Proposed Discharge Date: 03/16/19
== END 2019-03-16 18:47 | disposition home or self-care (01) ==
LOC: SDC 05:30 → AC 05:31 → MS3 03-16 06:23
PROVIDERS: Anesthesiology; Urology; Family Provider Nurse Practitioner Family; PCP Nurse Practitioner Family; Referring Provider Obstetrics & Gynecology; Visit Provider Obstetrics & Gynecology
PROC: (CPT 58260; principal; 2019-03-15 07:10)
PROC: (CPT 57260; 2019-03-15 07:10)
DX: N81.2 Incomplete uterovaginal prolapse (principal); N36.41 Hypermobility of urethra; N88.8 Other specified noninflammatory disorders of cervix uteri; N85.01 Benign endometrial hyperplasia; D25.9 Leiomyoma of uterus, unspecified; N83.8 Other noninflammatory disorders of ovary, fallopian tube and broad ligament; N70.11 Chronic salpingitis; N83.292 Other ovarian cyst, left side; N83.291 Other ovarian cyst, right side; Z79.899 Other long term (current) drug therapy; I10 Essential (primary) hypertension; F41.9 Anxiety disorder, unspecified; D62 Acute posthemorrhagic anemia; R33.9 Retention of urine, unspecified
CPT/HCPCS: 00840; 00940; 49320; 57250; 57288; 58262; 36415; 80048; 80053; 82248; 82962; 84443; 85025; 85027; 85610; 85730; 86850; 86900; 86901; 86920; 88307; 93005; J7040; J7120; C1758; J2405

== ENCOUNTER → 2019-04-19 10:44 | Outpatient (CLI) | payer MEDICARE, OTHER, SELFPAY ==
[2019-03-16 05:50] VITALS: BMI 19.5
[2019-04-19 11:18] LABS: Absolute Lymphocyte Count 1.64 X10^3/uL (0.83-4.51); Absolute Neutrophil Count 5.4 X10^3/uL (2.0-7.7); Basophil# 0.15 X10^3/uL; Basophil% 1.7 % (0-1); Eosinophil# 0.48 X10^3/uL; Eosinophils% 5.5 % (0-5); Hematocrit 38.2 % (37-47); Hemoglobin 12.5 g/dL (12.0-15.0); Lymphocyte # 1.64 X10^3/ul (4.0); Lymphocyte % 18.8 % (19-41); Mean Corp Hgb Conc 32.7 g/dL (32-36); Mean Corpuscular Volume 97.7 fL (81-99); Mean Platelet Vol. 9.4 fl (6.2-12.0); Monocyte# 1.05 X10^3/uL; NRBC Flagged by Analyzer 0 % (0-5); Neutrophil # 5.39 X10^3/uL (2.7-7.7); Neutrophil % 61.7 % (47-70); Platelet Count 307 K/mm3 (150-450); RBC Distribution Width CV 12.7 % (11.6-14.6); RBC Distribution Width SD 46.1 fl (35.1-43.9); Red Blood Count 3.91 M/mm3 (4.2-5.4); White Blood Count 8.7 K/mm3 (4.4-11.0)
[2019-04-19 11:58] LABS: Estradiol < 11.0 pg/mL; Follicle Stimulating Hormone 67.7 mIU/mL
[2019-04-19 14:58] LABS: Progesterone Level 0.09 ng/mL (See Comment)
== END ==
PROVIDERS: Family Provider Nurse Practitioner Family; PCP Nurse Practitioner Family
DX: D64.9 Anemia, unspecified (principal); Z79.890 Hormone replacement therapy
CPT/HCPCS: 36415; 82670; 83001; 84144; 84403; 85025

== ENCOUNTER → 2019-04-26 17:34 | Outpatient (CLI) | payer MEDICARE, OTHER, SELFPAY ==
[2019-04-26 14:19] VITALS: BMI 19.5
== END ==
PROVIDERS: Family Provider Nurse Practitioner Family; PCP Nurse Practitioner Family; Referring Provider Obstetrics & Gynecology; Visit Provider Obstetrics & Gynecology
DX: N89.8 Other specified noninflammatory disorders of vagina (principal)
CPT/HCPCS: 87070; 87077; 87205

== ENCOUNTER → 2019-10-05 12:23 | Outpatient (CLI) | payer MEDICARE, OTHER, SELFPAY ==
[2019-04-26 14:19] VITALS: BMI 19.5
--- NOTE | 2019-10-05 13:31 | NEURO ---
NCS and/or EMG Patient Report Ordering Doctor: Morelia Arora DATE OF SERVICE: 10/05/19 Matt Torres is a 74-year-old female who presents for electrodiagnostic testing of the left lower limb. She reports intermittent burning in the left foot. Electrodiagnostic findings: Left peroneal motor nerve demonstrates normal distal latency, amplitude and conduction velocity. Normal left tibial motor response. Normal left tibial peroneal F wave. H reflex borderline prolonged bilaterally. Sensory responses within normal limits. On needle EMG, all muscles tested in the upper limb showed no evidence of denervation with normal motor unit action potentials. Electrodiagnostic assessment: This is a normal electrodiagnostic study of the left lower limb. There is no electrodiagnostic evidence for peripheral neuropathy or lumbosacral radiculopathy. If there are any further questions, please do not hesitate to contact me.
== END ==
PROVIDERS: PCP Nurse Practitioner Family; Referring Provider Internal Medicine; Visit Provider Internal Medicine
DX: R20.0 Anesthesia of skin (principal); M79.2 Neuralgia and neuritis, unspecified
CPT/HCPCS: 95886; 95910

== ENCOUNTER → 2020-03-28 08:34 | Outpatient (CLI) | payer MEDICARE, OTHER, SELFPAY ==
[2019-04-26 14:19] VITALS: BMI 19.5
[2020-03-28 10:13] LABS: Absolute Lymphocyte Count 1.76 X10^3/uL (0.83-4.51); Basophil% 1.3 % (0-1); Eosinophil# 0.09 X10^3/uL; Eosinophils% 1.2 % (0-5); Hematocrit 42.5 % (37-47); Hemoglobin 14.2 g/dL (12.0-15.0); Lymphocyte # 1.76 X10^3/ul (4.0); Lymphocyte % 22.6 % (19-41); Mean Corp Hgb Conc 33.4 g/dL (32-36); Mean Corpuscular Hgb 31.2 pg (27.0-32.0); Mean Corpuscular Volume 93.4 fL (81-99); Mean Platelet Vol. 9.8 fl (6.2-12.0); Monocyte# 0.85 X10^3/uL; Monocyte% 10.9 % (0-10); NRBC Flagged by Analyzer 0 % (0-5); Neutrophil # 4.97 X10^3/uL (2.7-7.7); Neutrophil % 63.6 % (47-70); Platelet Count 313 K/mm3 (150-450); RBC Distribution Width CV 13.1 % (11.6-14.6); RBC Distribution Width SD 44.7 fl (35.1-43.9); Red Blood Count 4.55 M/mm3 (4.2-5.4); White Blood Count 7.8 K/mm3 (4.4-11.0)
[2020-03-28 10:38] LABS: Hemoglobin A1c 5.4 % (3.8-5.6)
[2020-03-28 10:40] LABS: Progesterone Level 0.68 ng/mL (See Comment); Vitamin B12 > 2000 pg/mL (211-911)
[2020-03-28 12:47] LABS: ALB/GLOB Ratio 1.2 RATIO (0.9-2.4); AST(SGOT) 22 U/L (15-37); Alanine Aminotransfer ALT/SGPT 33 U/L (13-56); Alkaline Phosphatase 49 U/L (45-117); Anion Gap 9 (5-15); BUN 16 mg/dL (7-18); BUN/Creat Ratio 18.2 RATIO (10-20); Calcium,Total 8.9 mg/dL (8.5-10.1); Chloride 96 mmol/L (98-107); Cholesterol 166 mg/dL (200); Creatinine, Serum 0.88 mg/dL (0.55-1.02); EST Glomerular Filtration Rate 67 mL/min (>60); Est Glom Filt Rate - Afr Amer 81 mL/min (>60); Estradiol < 11.0 pg/mL; Follicle Stimulating Hormone 81.1 mIU/mL; Free T3 2.4 pg/mL (2.18-3.98); Globulin 3.3 g/dL (2.2-4.2); Glucose 100 mg/dL (74-106); High Density Lipoprotein 63 mg/dL; Potassium 4.3 mmol/L (3.5-5.1); Protein, Total 7.3 g/dL (6.4-8.2); Sodium Level 131 mmol/L (136-145); T4 Free Direct 1.04 ng/dL (0.76-1.46); T4 Total, Thyroxin 7.1 ug/dL (4.8-13.9); Thyroid Stim Hormone (TSH) 2.57 uIU/mL (0.358-3.74); Triglycerides 58 mg/dL; Very Low Density Lipoprotein 12 mg/dL (5-40)
[2020-03-29 05:36] LABS: Thyroid Peroxidase AB < 9 IU/mL (0-34)
== END ==
PROVIDERS: PCP Nurse Practitioner Family; Referring Provider Nurse Practitioner Family; Visit Provider Nurse Practitioner Family
DX: E03.8 Other specified hypothyroidism (principal); Z79.890 Hormone replacement therapy; R00.2 Palpitations; R35.0 Frequency of micturition; Z13.220 Encounter for screening for lipoid disorders; R79.89 Other specified abnormal findings of blood chemistry; E55.9 Vitamin D deficiency, unspecified; K57.92 Diverticulitis of intestine, part unspecified, without perforation or abscess without bleeding
CPT/HCPCS: 36415; 80053; 80061; 82306; 82607; 82670; 83001; 83036; 84144; 84403; 84436; 84439; 84443; 84481; 85025; 86376

== ENCOUNTER 2020-09-25 15:52 | Day surgery (SDC) | payer MEDICARE, OTHER, SELFPAY ==
[2019-04-26 14:19] VITALS: BMI 19.5
[2020-09-25 16:40] VITALS: BP 164/76; PULSE 64; RESP 16; TEMP 36.8; O2SAT 98; BMI 20.5
--- NOTE | 2020-09-25 17:24 | EKG12_ITS ---
Test Reason : PRE OP Blood Pressure : / mmHG Vent. Rate : 061 BPM Atrial Rate : 061 BPM P-R Int : 162 ms QRS Dur : 088 ms QT Int : 402 ms P-R-T Axes : 073 066 061 degrees QTc Int : 404 ms Normal sinus rhythm Normal ECG When compared with ECG of 10-MAR-2019 13:59, No significant change was found Confirmed by JUWAN JONES, LON ([id number]), managing editor ADRIANNE CRYSTAL ([id number]) on 09/28/2020 10:42:03 AM Referred By: Keila Esposito Confirmed By:LON ECHEVERRIA MD
--- NOTE | 2020-09-25 18:33 | DCINST_ITS ---
Discharge Instructions Diet Discharge Diet: No restrictions Activity Discharge Activity: May Shower and - (no tub bathing, no intercourse, no pessary) Lifting Restrictions: 10 pounds Dressing / Incision Call your doctor if your incision/area has: Continuous Slow Oozing, Sudden Increased Bleeding, Increased Pain/ Swelling and Foul Smelling Discharge Call your doctor if you observe: Fever of 101 or Higher, Inability to urinate, Inability to have a bowel movement, Calf discomfort and Uncontrolled pain Follow Up Care Please Follow Up With: Keila Esposito MD When: 1 week, call office for appt Test Results: Test results from this visit will be discussed in further detail at your follow-up appointment, if applicable. Discharge Plan Admission Primary Reason for Your Visit: vaginal laceration Attending Provider: Keila Esposito Primary Care Provider: Rekha Romero Discharge Orders/Prescriptions Prescriptions: New oxycodone-acetaminophen [Percocet] 5-325 mg tablet 1 tab PO Q8H PRN (Reason: pain) 7 Days Qty: 20 RF: 0 cephalexin 500 mg capsule 500 mg PO Q12 Qty: 6 RF: 0 ondansetron HCl 8 mg tablet 8 mg PO Q8H PRN PRN (Reason: Nausea) Qty: 20 RF: 0 metronidazole [Flagyl] 500 mg tablet 500 mg PO BID 7 Days Qty: 14 RF: 0 Continued Co Q-10 150 mg capsule 150 mg PO DAILY RF: 0 lisinopril 10 mg tablet 20 mg PO DAILY RF: 0 ascorbic acid (vitamin C) 500 mg capsule 500 mg PO DAILY RF: 0 cod liver oil Capsule 1 cap PO DAILY RF: 0 magnesium 250 mg tablet 250 mg PO DAILY RF: 0 estradiol [Estrace] 0.01 % (0.1 mg/gram) cream 1 g VAGINAL 2XW RF: 0 vitamin D3-vitamin K2 (MK4) 1 EACH tablet 1 ea PO DAILY RF: 0 Homocysteine Factors 1 cap PO BID RF: 0 atenolol 25 mg tablet 25 mg PO QHS Qty: 0 RF: 0 hydroxyzine HCl 25 MG tablet 25 mg PO PRN PRN (Reason: Anxiety) Qty: 0 RF: 0 Referrals / Follow Up: Rekha Romero, CYBER ANALYST-C [Primary Care Provider] - Disposition Disposition (needs filled in before D/C Order can be placed): Home, self care
[2020-09-25] MEDS: Cefazolin 2 GM in 0.9% Normal Saline 100 ML IV (18:36)
--- NOTE | 2020-09-25 18:38 | PCM.HP.STD ---
HPI - General HPI Narrative SHYANNE PETTIT, is a 75 F who presents for surgical repair of vaginal laceration due to cube pessary. [facility] Medical History Anxiety Diverticulitis Hypertension Hypothyroidism Mitral valve prolapse Vaginal laceration Home Medications ascorbic acid (vitamin C) 500 mg capsule 500 mg PO DAILY cap 01/24/19 [History Last Taken Unknown] cod liver oil 1 cap PO DAILY 01/24/19 [History Last Taken 03/01/19] coenzyme Q10 150 mg capsule 150 mg PO DAILY 01/24/19 [History Last Taken Unknown] estradiol 1 g VAGINAL 2XW 01/24/19 [History Last Taken Unknown] lisinopril 10 mg tablet 20 mg PO DAILY 01/24/19 [History Last Taken 03/15/19 0500] magnesium 250 mg tablet 250 mg PO DAILY 01/24/19 [History Last Taken Unknown] Homocysteine Factors 1 cap PO BID 03/08/19 [History Last Taken Unknown] vitamin D3-vitamin K2 (MK4) 1 ea PO DAILY 03/08/19 [History Last Taken Unknown] atenolol 25 mg PO QHS #0 03/16/19 [Rx Last Taken Unknown] hydroxyzine HCl 25 mg PO PRN PRN #0 03/16/19 [Rx Last Taken Unknown] cephalexin 500 mg PO Q12 #6 capsule 09/25/20 [Rx Last Taken Unknown] metronidazole [Flagyl] 500 mg PO BID 7 Days #14 tab 09/25/20 [Rx Last Taken Unknown] ondansetron HCl 8 mg PO Q8H PRN PRN #20 tablet 09/25/20 [Rx Last Taken Unknown] oxycodone-acetaminophen [Percocet] 1 tab PO Q8H PRN 7 Days #20 tab 09/25/20 [Rx Last Taken Unknown] Allergy/AdvReac Type Severity Reaction Status Date / Time metoprolol AdvReac Intermediate palpitation Verified 04/26/19 14:19 s morphine AdvReac Nausea Verified 09/25/20 16:33 Family History Mother Diabetes Hypertension CHD (congenital heart disease) Father CVA (cerebral vascular accident) Hypertension Surgical History Cataract H/O adenoidectomy H/O cystoscopy H/O tubal ligation History of shoulder surgery History of tonsillectomy Social History Smoking Status: Never smoker alcohol intake: never substance use type: does not use caffeine: Yes what type of physical activity do you participate in: none and walking seatbelt use: always do you feel safe at home: Yes additional social history: [employer] Patient is retired ROS Constitutional Constitutional: Reports systems reviewed and no addt'l complaints, except as documented ENT HEENT: Reports systems reviewed and no addt'l complaints, except as documented Cardiovascular Cardiovascular: Reports systems reviewed and no addt'l complaints, except as documented Respiratory/Chest Respiratory/Chest: Reports systems reviewed and no addt'l complaints, except as documented Gastrointestinal Gastrointestinal: Reports systems reviewed and no addt'l complaints, except as documented Genitourinary Genitourinary: Reports other Details: vaginal bleeding Musculoskeletal Musculoskeletal: Reports systems reviewed and no addt'l complaints, except as documented Integumentary Integumentary: Reports systems reviewed and no addt'l complaints, except as documented Neurologic Neurologic: Reports systems reviewed and no addt'l complaints, except as documented Psychiatric Psychiatric: Reports systems reviewed and no addt'l complaints, except as documented Vital Signs Vital Signs Vital Signs: 09/25/20 16:40 Temperature 98.3 F Temperature Source Temporal Pulse Rate 64 Respiratory Rate 16 Respiratory Pattern Normal Blood Pressure 164/76 H Blood Pressure Mean 105 Blood Pressure Source Monitor Blood Pressure Position Semi-Fowlers Blood Pressure Location Left Arm Pulse Ox 98 Oxygen Delivery Method Room Air Physical Exam Const alert and oriented x3 General Appearance: cooperative and comfortable Orientation / Consciousness: awake and oriented to person HEENT normocephalic and head/scalp atraumatic Head and Scalp: normocephalic and atraumatic Mouth: lips normal Eyes General Eye: normal appearance of both eyes Neck General: normal visual inspection and trachea midline Chest inspection of chest normal Chest: abnormal inspection of the chest and symmetrical chest wall rise Resp normal respiratory effort, normal air movement and no retractions Effort and Inspection: able to speak in complete sentences and symmetric chest movement Cardio regular rate and regular rhythm GI normal to inspection, nondistended, normoactive bowel sounds Narrative: vaginal laceration, no acute active bleeding, posterior apical location approximately 5mm in size, fat visible with valsalva Extremity normal to inspection General Extremity: normal exam except as noted Skin no rashes or lesions noted General Skin Exam: no breakdown Neuro oriented x3 and CN's II-XII intact bilaterally Lab / Micro Data Micro: Microbiology 09/25/20 16:57 SARS-CoV-2 Antigen (Rapid) - Final Mucosa - Nose Assessment & Plan Assessment/Plan (1) Vaginal laceration: QUALIFIERS: Vaginal laceration type: non-obstetric Foreign body presence: with foreign body PLAN: to operating room for repair vaginal laceration
[2020-09-25] MEDS: Lidocaine 1% /Epi 1:100 (20ml) 20 ML Vial (18:50)
[2020-09-25 19:07] VITALS: BP 109/86; BP 164/76; PULSE 67; RESP 16; TEMP 36.2; O2SAT 98
[2020-09-25 19:15] VITALS: BP 114/62; BP 164/76; PULSE 62; RESP 16; O2SAT 63
--- NOTE | 2020-09-25 19:16 | PCM.OPRPT ---
Problems Associated Problem List Diagnoses (1) Vaginal laceration: (2) Vaginal bleeding: Report of Operation Date of Procedure: 09/25/20 Pre-Operative Diagnosis: Vaginal laceration secondary to foreign body, vaginal bleeding Post-Operative Diagnosis: Same Surgery/Procedure Performed:: Debridement, repair of vaginal laceration Type of Anesthesia: General Specimen's removed: None Description of Procedure: The patient is a 75-year-old female who has had a difficult time finding a pessary to work for her anterior and apical defect. She has had a cube pessary for the last several weeks. She has been fighting intermittent bacterial vaginosis as a result of this. She uses vaginal estrogen cream in addition to boric acid suppositories. Last week, she inserted a boric acid suppository on Thursday and had vaginal bleeding. It stopped and she has had only mild intermittent spotting since then. She was seen in the office today. Upon removal of the pessary, a laceration approximately 5 mm in size is identified and visible fat protruded with Valsalva. She now presents for debridement of this area with closure. The patient was taken to the operating room and placed on the operating room table. Anesthesia monitored the head, neck, airway, IV access and vital signs throughout the case. Once anesthesia was appropriately administered the patient was placed in dorsal lithotomy and Trendelenburg position and was prepped and draped in usual sterile fashion. On examination, posteriorly on her left side a 5 mm defect was visible. To other areas head visible ulcerations beginning to form 1 approximately 7.5 mm in diameter, the other area is smaller approximately 4 mm in diameter. A rectal examination was performed revealing no fistula formation. The area of the defect was infiltrated with lidocaine, the edges were removed with Metzenbaums and the area was profusely irrigated with sterile water. Interrupted 2-0 Vicryl [id number] sutures were placed over the 5 mm laceration. 1 suture interrupted was used to bring the tissue edges together and one other location that was beginning to ooze. The patient was then awakened and taken to the recovery room in good condition. There were no complications during this procedure Complications None Admit VTE Documentation VTE Present on Admission: Yes VTE Mechan Device Prophylaxis: SCD's VTE Pharm Prophylaxis ordered?: No Reason prophylaxis not ordered:: Treatment Not Indicated
[2020-09-25 19:30] VITALS: BP 124/61; BP 164/76; PULSE 62; RESP 16; TEMP 36.7; O2SAT 99
[2020-09-25 19:55] VITALS: BP 164/76
== END 2020-09-25 20:15 | disposition home or self-care (01) ==
LOC: SDC 15:56 → AC 15:57
PROVIDERS: PCP Nurse Practitioner Family; Referring Provider Urology; Visit Provider Urology
PROC: (CPT 57260; principal; 2020-09-25 18:15)
DX: S31.41XA Laceration without foreign body of vagina and vulva, initial encounter (principal); W45.8XXA Other foreign body or object entering through skin, initial encounter; Y93.9 Activity, unspecified; Y92.9 Unspecified place or not applicable; I10 Essential (primary) hypertension; E03.9 Hypothyroidism, unspecified; F41.9 Anxiety disorder, unspecified; I34.1 Nonrheumatic mitral (valve) prolapse; Z87.19 Personal history of other diseases of the digestive system; Z79.899 Other long term (current) drug therapy
CPT/HCPCS: 00942; 57200; 87426; 93005; J7120; J2405

== ENCOUNTER 2023-05-01 13:00 | Outpatient (RCR) | payer MEDICARE, OTHER, SELFPAY ==
--- NOTE | 2023-02-09 16:49 | HP.PTEVAL ---
Patient's Visit Information Visit Information Visit Information: SHYANNE PETTIT is a 77 year old F referred to Physical Therapy by Dr. 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 Date of Evaluation: 02/09/23 Physical Therapist: Stella Wren PT, Cert MDT Visit Plan Frequency: 1x/Week Duration: 2-4 Months Plan: MANUAL PELVIC FLOOR THERAPY FOR TRIGGER POINT RELEASE. INSTRUCTION IN PELVIC FLOOR RELAXATION. CORE AND HIP STRENGTHENING. SARAN LE AND PF STRETCHING. HEP INSTRUCTION. Subjective Subjective: Work/Leisure: IS DISABLED - [employer]. 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 HE IS AMBULATORY WITH A WALKER. PATIENT LIKES TO WALK OUTSIDE FOR EX WHEN POSSIBLE. USUALLY HOME. GETS OUT AND ABOUT ONCE A WK OR SO. 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 Present symptoms: PATIENT C/O BURNING IN GENITAL AREA. DIFFICULTY STARTING THE URINE STREAM ESPECIALLY IF IN PUBLIC RESTROOMS. Present since: ABOUT A YEAR OR SO. Pain Scale: WORST 4/10, LEAST 0/10 Currently: /10 Is it getting better, worse or staying the same: STAYING THE SAME Commenced as a result of: NO APPARENT REASON BUT PATIENT REPORTS THE DOCTOR THINKS IT IS FROM STRESS AND SPASMS Worse: PUBLIC BATHROOMS, IF BLADDER ISN'T VERY FULL, DIFFICULTY AT HOME TOO, ALMOST ALWAYS BURNING WITH URINATION. Better: DRINKING MORE WATER, ORAL AND suppository MEDICATION PRESCRIBED BY DR. SHOOK Disturbed sleep: USUALLY ONCE Previous history/Previous treatment: TROUBLE URINATING IN 2019 AFTER TOTAL HYSTERECTOMY AND RECTAL REPAIR AND BLADDER SLING SO HAD PELVIC FLOOR EXERCISES IN [place] THAT HELPED. APR 2021 - SURGERY FOR PROLAPSE AT [facility] (SACROCOLPOPEXY) WITH GOOD RESULT UNTIL ABOUT A YEAR AGO WHEN CURRENT SX'S STARTED AND PATIENT REPORTS DR. SHOOK TOLD HER SHE HAS PROLAPSE AGAIN (GRADE II) BUT PESSARY NOT NEEDED. PATIENT DENIES ANY RECENT UTI'S. R HIP PROBLEM ABOUT A YEAR AGO TREATED WITH PCP AND CHIROPRACTIC. Prophylactic CHIRO CURRENTLY. Coughing/sneezing: I HAVEN'T BEEN NOTICING ANY relating to UI. Gait: NORMAL How long can you delay the need to urinate: PATIENT REPORTS SHE CAN NOT MAKE IT TO THE BATHROOM IN TIME A LOT OF THE TIME IN THE MORNINGS WHEN HER BLADDER IS FULL. SHE REPORTS SHE DRINKS WATER ALL DAY INTO THE EVENING AND HAS WATER ON HER NIGHT STAND TOO. Prolapse (Falling out feeling): YES Frequency of Urination: ABOUT EVERY 2-3 HRS. Ability to stop urine flow: PARTIALLY Ability to initiate urine stream: DIFFICULTY Dyspareunia: N/A Bowel Incontinence: NO Accidents: NO Unexplained weight loss: NO Imaging: NO OTHER: PATIENT REPORTS TESTING AT DR. SHOOK'S OFFICE SHOWS SUFFICIENT BLADDER EMPTYING WITH REPEATED TESTING. PMH FROM [facility] EMR: Anxiety Diverticulitis Hypertension Hypothyroidism Mitral valve prolapse Vaginal laceration Cataract H/O adenoidectomy H/O cystoscopy H/O tubal ligation History of shoulder surgery History of tonsillectomy Objective Objective: Sitting/Standing Posture: FAIR. DECREASED LORDOSIS. NO RELEVANT LATERAL SHIFT. Active Correction of posture: NE Other Observations: INDEP GAIT AND TRANFERS Sensory deficit: SARAN LE LIGHT TOUCH SENSATION GROSSLY INTACT AND SYMMETRICAL ROM deficit: SARAN LE HIP ADDUCTOR, HS AND HIP ER TIGHTNESS. Motor deficit: SARAN LE'S GROSSLY 5/5 WITH MMT'ING Dural Signs: NEGATIVE SARAN LE'S. Lumbar mvmt loss: flex - NIL ext - MOD R SG - MIN L SG - MIN PATIENT DENIES PAIN WITH LUMBAR ROM TESTING ALL PLANES. Core strength: FAIR Palpation: MANUAL VAGINAL INTERNAL PELVIC FLOOR TESTING REVEALS PELVIC FLOOR TIGHTNESS WITH SEVERAL TRIGGER POINTS BUT MINIMAL TENDERNESS AND PELVIC FLOOR WEAKNESS. PF STRENGTH GRADED 3/5 X 4 SEC X 3. FUNCTIONAL SCREEN: Incontinence Impact Questionnaire Score: 0 Urogenital Distress Inventory Score: 8 Goals Goal 1:: PATIENT WILL BE ABLE TO INITATE URINATION WITHOUT DIFFICULTY. Goal Time Frame: 8-12 Weeks Goal 2:: PATIENT WILL BE INDEP WITH A HEP FOR CONTINUED IMPROVEMENT ONCE FORMAL PHYSICAL THERAPY CONCLUDES. Goal Time Frame: 8-12 Weeks Anticipated Interventions Patient/Client Instruction: Educate patient on: Condition, Plan of Care and Risk Factors For the Purpose of:: To improve self management Therapeutic Exercise to Include: Strength training, Flexibilty training, Relaxation training and Dynamic Lumbar Stabilization For the Purpose of:: To decrease pain, To increase ROM, To improve muscle performance and motor function and To increase tolerance to activity/condition/position Manual Therapy Techniques to Include: Trigger point massage and Soft tissue mobilization For the Purpose of:: To decrease pain, To increase ROM, To improve muscle performance and motor function and To increase tolerance to activity/condition/position Text: Thank you for the opportunity to evaluate your patient. For Medicare and Medicare HMO plans, please review the plan of care and approve it. It will need to be FAXED BACK to us at [phone] for Medicare purposes. For Medicare only, by signing this I certify the plan of care. Please let me know if there are questions or concerns regarding this plan of care. Physician Signature: Date:
--- NOTE | 2023-05-01 13:53 | HP.PTDCSUM ---
Discharge Summary D/C summary: It has been my pleasure to treat SHYANNE PETTIT referred by Dr. 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 Discharge Date: Please see the following information for a summary of their discharge status. Subjective Subjective: IT HAS BEEN SO DIFFERENT AND SO WONDERFUL AND I APPRECIATE IT SO MUCH. IT IS SUCH A RELIEF. PATIENT REPORTS SHE REALLY ISN'T HAVING TROUBLE INITIATING URINATION ANYMORE EVEN IN PUBLIC. PATIENT REPORTS SHE HAS HAD VERY LITTLE TROUBLE URINATING AND FEELS SHE CAN CONTINUE THE EX'S ON HER OWN NOW. PATIENT REPORTS THAT EVEN THOUGH THIS WEEK HAS BEEN VERY STRESS HER SYMPTOMS HAVE BEEN GOOD. PATIENT REPORTS VERY OCCASSIONAL UI WITH COUGHING AND SNEEZING AND MILD INTERMITTENT BURNING WITH URINATION BUT SO MUCH BETTER THAN WHAT IT WAS. Pain GENITAL AREA: Pain Intensity (Out of 10): 1 L LBP: Pain Intensity (Out of 10): 0 Overall Improvement % Improvement: 98 Objective Objective/Function: PATIENT WAS SEEN TODAY FOR RE-ASSESSMENT OF PROGRESS TOWARD THE SET PT GOALS AND THE NEED FOR FURTHER PHYSICAL THERAPY VS READINESS FOR DISCHARGE. PHYSICAL THERAPY HAS INCLUDED MANUAL PELVIC FLOOR THERAPY FOR TRIGGER POINT RELEASE. INSTRUCTION IN PELVIC FLOOR RELAXATION. CORE AND HIP STRENGTHENING. SARAN LE AND PF STRETCHING. AND HEP INSTRUCTION. PATIENT HAS ALSO BEEN INSTRUCTED IN HEALTHY BLADDER HABITS, PROPER POSTURE CONTROL, APPROPRIATE INTRA-ABDOMINAL PRESSURE MANAGEMENT AND PROPER BODY MECHANICS FOR HELPING CARE FOR . HOME INSTRUCTIONS WERE REVIEWED TODAY AND PATIENTS QUESTIONS ANSWERED. ALL GOALS HAVE BEEN MET AND PATIENT IS APPROPRIATE FOR AND AGREEABLE TO DISCHARGE. FUNCTIONAL SCREEN: Incontinence Impact Questionnaire Score: 0 Urogenital Distress Inventory Score: 2 (8 AT EVAL) SHE PLANS TO FOLLOW UP WITH DR. SHOOK EARLY NEXT MONTH. Goals Goal 1:: PATIENT WILL BE ABLE TO INITATE URINATION WITHOUT DIFFICULTY. Goal Progress: Goal Met Goal 2:: PATIENT WILL BE INDEP WITH A HEP FOR CONTINUED IMPROVEMENT ONCE FORMAL PHYSICAL THERAPY CONCLUDES. Goal Progress: Goal Met Plan Plan: D/C TO INDEP HOME EX PROGRAM. PATIENT AGREEABLE. D/C Information d/c sentence: If there are questions or concerns regarding this patient's physical therapy, please feel free to call me at [phone]. Thank you for the referral of this patient. Sincerely, Stella Wren, PT, Cert MDT Balance/Gait/Functional tests Improvement % Improvement: 98
== END 2023-05-01 19:00 | disposition home or self-care (01) ==
LOC: PT 13:00
PROVIDERS: PCP Internal Medicine; Referring Provider Urology; Visit Provider Urology
DX: K59.02 Outlet dysfunction constipation (principal); R30.0 Dysuria
CPT/HCPCS: 97140; 97162; 97164; 97530

== ENCOUNTER 2023-06-22 14:00 | Outpatient (RCR) | payer MEDICARE, OTHER, SELFPAY | END 2023-06-22 19:00 | disposition home or self-care (01) | LOC: PT 14:00 | PROVIDERS: PCP Internal Medicine; Referring Provider Urology; Visit Provider Urology | DX: R10.2 Pelvic and perineal pain (principal); R30.0 Dysuria | CPT/HCPCS: 97164; 97530 ==

== ENCOUNTER → 2024-09-13 | Outpatient (CLI) | payer MEDICARE, OTHER, SELFPAY ==
--- NOTE | 2024-09-13 13:10 | ASPIG_PTH ---
PATIENT: SHYANNE PETTIT LOC: [facility] U#:[id number] AGE/SX: 79/F ROOM: RE09/13/[address]: Dr. Derian Guerra MD : 1945 BED: DIS: 09/13/2024 SPEC #: [id number] RECD: 09/13/24 15:16 STATUS: CASSIDY MORGAN #: [id number] ASHLEY: 09/13/24 13:[address]: Derian Guerra DEPT: CYTOLOGY RECD BY: Charlie Connors ENTERED: 09/13/24 15:18 SP TYPE: ASP OUT OTHR DR: Dr. Morelia Arora MD Tissues: A - Thyroid gland, NOS B - Thyroid gland, NOS C - Thyroid gland, NOS Procedures: FNA Specimen Adequacy Special Stain Group II Cytology Other HEADER OPERATION: Fine needle aspiration of left thyroid nodule x2 PRE-OP DIAGNOSIS: Left thyroid nodule TISSUE SUBMITTED: A- Left inferior thyroid nodule, B- Left superior thyroid nodule DIAGNOSIS CYTOLOGY A. Thyroid, fna - left inferior: * Nondiagnostic due to insufficient cellular material * Cyst fluid B. Thyroid, fna - left superior: * Nondiagnostic due to insufficient cellular material C. Thyroid, fna - left superior thyroid aspirate: * Nondiagnostic due to insufficient cellular material COMMENT The specimen is evaluated at the time of biopsy by Dr. Slaughter. Immediate Evaluation = A1- Adequate. A2- Macrophages, rare follicular cells. A3- No cells. A4- Blood. B1- Blood. B2- Blood. B3- Blood. B4- Blood. B5- Blood, scant colloid. B6- One group of follicular cells. CYTOLOGY STUDY Slides are reviewed. CYTOLOGY GROSS A. Received is 30 ml of red-cloudy fluid cytolyt with particles, 4 DQ and 3 PAPS labeled with the patient's name and and designated per the requisition as Left inferior thyroid nodule. Submitted for cytology and cell block preparation. B. Received is 30 ml of red-cloudy fluid cytolyt with particles, 6 DQ and 6 PAPS labeled with the patient's name and and designated per the requisition as Left superior thyroid nodule. Submitted for cytology and cell block preparation. C. Received is 6 ml of red-cloudy fluid labeled with the patient's name and and designated per the requisition as Left superior thyroid nodule aspirate. Submitted for cytology and cell block preparation. Mr 09/14/2024 CPT: 00278v5
== END | disposition home or self-care (01) ==
PROVIDERS: PCP Internal Medicine; Referring Provider Surgery; Visit Provider Surgery
DX: E04.2 Nontoxic multinodular goiter (principal)
CPT/HCPCS: 88161; 88172; 88305; 88313

== ENCOUNTER → 2024-10-18 | Outpatient (CLI) | payer MEDICARE, OTHER, SELFPAY ==
--- NOTE | 2024-10-18 09:15 | ASPIG_PTH ---
PATIENT: SHYANNE PETTIT LOC: [facility] U#:[id number] AGE/SX: 79/F ROOM: RE10/18/[address]: Dr. Derian Guerra MD : 1945 BED: DIS: 10/18/2024 SPEC #: [id number] RECD: 10/18/24 09:30 STATUS: CASSIDY MORGAN #: [id number] ASHLEY: 10/18/24 09:[address]: Derian Guerra DEPT: CYTOLOGY RECD BY: Charlie Connors ENTERED: 10/18/24 10:47 SP TYPE: ASP OUT OTHR DR: Dr. Morelia Arora MD Tissues: A - Thyroid gland, NOS B - Thyroid gland, NOS Procedures: FNA Specimen Adequacy Special Stain Group II Surgery Specimen Level IV Cytology Other HEADER OPERATION: Fine needle aspiration of left thyroid nodules x2 PRE-OP DIAGNOSIS: Left thyroid nodule TISSUE SUBMITTED: A- Left superior thyroid nodule, B- Left inferior thyroid nodule DIAGNOSIS CYTOLOGY A. Thyroid, left superior, FNA: * Atypia of undetermined significance (TBS III) - see Comment. B. Thyroid, left inferior, nodule, FNA: * Atypia of undetermined significance (TBS III) - see Comment. COMMENT The specimen is evaluated at the time of biopsy by Dr. Slaughter. Immediate Evaluation = A1- Rare cells. A2. Blood. B1. Few cells. B2. Few cells. Per recommendations and a clinician-approved plan (a call was made to the referring doctor about the recommendation), genomic testing (Afirma) has been submitted. Results will be reported as an addendum and faxed to clinician. CYTOLOGY STUDY Slides are reviewed. CYTOLOGY GROSS A. Received is 30 ml of cytolyt with <1ml of red fluid labeled with the patient's name and and designated per the requisition as Left superior thyroid. Submitted for cytology and cell block preparation. B. Received is 30 ml of cytolyt with <1ml of red fluid labeled with the patient's name and and designated per the requisition as Left inferior thyroid nodule. Submitted for cytology and cell block preparation. Mr 10/18/2024 CPT: 78228p6, [id number] ADDENDUM ADDENDUM ADDENDUM ADDENDUM ADDENDUM ADDENDUM ADDENDUM ADDENDUM ADDENDUM ADDENDUM ADDENDUM ADDENDUM ADDENDUM ADDENDUM ADDENDUM ADDENDUM ADDENDUM ADDENDUM 11/10/2024 09:00 ADDENDUM 11/10/2024 09:00 ADDENDUM 11/10/2024 09:00 ADDENDUM 11/10/2024 09:00 ADDENDUM 11/10/2024 09:00 AFIRMA RESULTS REPORT - A RESULTS INTERPRETATION: The result of this 3.5 cm [place] III nodule A is Afirma GSC benign, which suggests a low risk of cancer of approximately 4%. Treatment like a cytologically benign nodule may be appropriate, including clinical correlation. Afirma XA is not performed on GSC Benign nodules. TERT promoter region analysis is not performed on GSC Benign nodules. AFIRMA RESULTS REPORT - B RESULTS INTERPRETATION: The result of this 2.4 cm Tamarack III nodule B is Afirma GSC benign, which suggests a low risk of cancer of approximately 4%. Treatment like a cytologically benign nodule may be appropriate, including clinical correlation. Afirma XA is not performed on GSC Benign nodules. TERT promoter region analysis is not performed on GSC Benign nodules. Please see complete report in e-chart or EMR
== END | disposition home or self-care (01) ==
LOC: LABSPEC 10:41
PROVIDERS: PCP Internal Medicine; Visit Provider Surgery
DX: E04.1 Nontoxic single thyroid nodule (principal)
CPT/HCPCS: 88161; 88172; 88305; 88313

== ENCOUNTER 2024-12-29 07:14 | Day surgery (SDC) | payer MEDICARE, OTHER, SELFPAY ==
--- OUTSIDE RECORDS SUMMARY | 2024-12-29 07:33 | XMS RPT_ITS | CCD ---
Author Organization [facility] Care Team Providers Care Dog Hair Clipper Name Role Phone Keshawn Arora MD Primary Care Provider [phone] PHYSICIAN, NOT RECORDED Primary Care Unavaila ble MAITE JONES, DR LIAO Attending Unavailable Maite JONES, Dr. Liao Primary Care Provider Maite JONES, Dr. Liao Referring Provider [phone] Mari JONES, Dr. Menard Attending Provider Mari JONES, Dr. Menard Referring Provider KESHAWN ARORA MD Admitting Unavailable KESHAWN ARORA MD Primary Care Unavailable KESHAWN ARORA MD Consulting Unavailable KESHAWN ARORA MD Attending Unavailable PROVIDER, UNKNOWN Consulting Unavailable PROVIDER, UNKNOWN Consulting Unavailable PROVIDER, UNKNOWN Consulting Unavailable CHADWICK, AUGUST INFECTION PREVENTIONIST Attending Unavailable CHADWICKAugust INFECTION PREVENTIONIST Referring Unavailable CHADWICK, AUGUST INFECTION PREVENTIONIST Admitting Unavailable CHADWICK, AUGUST INFECTION PREVENTIONIST Primary Care Unavailable Latouf, Butros Referring Unavailable Latouf, Butros Primary Care Unavailable Keila Esposito Attending Unavailable Derian Guerra Attending Unavailable Latouf, Butros Primary Care Unavailable Latouf, Butros Primary Care Unavailable Derian Guerra Attending Unavailable Latouf, Butros Primary Care Unavailable Latouf, Butros Referring Unavailable Derian Guerra Attending Unavailable Latnaveed, Butros Referring Unavailable Derian Guerra Attending Unavailable Latouf, Butros Primary Care Unavailable Latouf, Butros Primary Care Unavailable Derian Guerra Attending Unavailable Derian Guerra Referring Unavailable Allergies Allergy Classification Reported Allergen(s) Allergy Type Date of Onset Reaction(s) Facility (5 sources) Metoprolol Drug Allergy 9 Other: See Comments [facility] (5 sources) Morphine Drug Allergy 1 Vomiting [facility] (1 source) Metoprolol Drug Allergy 5 [facility] (1 source) Morphine Drug Allergy 5 [facility] Medications Current Medications Medication Drug Class(es) Dates Sig (Normalized) Sig (Original) ascorbic acid 500 mg oral capsule (5 sources) Vitamin C Start: 01-24-2019 take 1 capsule by mouth once daily Ascorbic Acid (Vitamin C) 500 mg capsule Active 500 mg PO DAILY January 24, 2019 12:00am Comment on above: 500 mg. atenolol 25 mg oral tablet (11 sources) beta-Adrenergic Arturo Start: 08-14-2020 take 1 tablet by mouth once daily at bedtime atenolol (TENORMIN) 25 mg tablet Take 25 mg by mouth daily at bedtime. 0 08/14/2020 Active Start: 03-16-2019 End: 09-19-2024 take 0.5 tablet by mouth once daily at bedtime Atenolol 25 mg tablet Active 12.5 mg PO AT BEDTIME September 19, 2024 8:36am take 1/2 tab QHS until seen in the office Thursday Start: 01-24-2019 End: 03-16-2019 take 1 tablet by mouth at bedtime Atenolol 25 mg tablet Discontinued 25 mg PO AT BEDTIME January 24, 2019 12:00am March 16, 2019 6:03pm Comment on above: Take 25 mg by mouth daily at bedtime. citrulline 600 mg oral capsule (2 sources) Start: 09-19-2024 take 1 capsule by mouth twice daily Citrulline 600 mg capsule Active 3 g PO TWICE A DAY September 19, 2024 12:00am Cod Liver Oil (2 sources) Start: 01-24-2019 take 1 capsule by mouth once daily Cod Liver Oil Active 1 CAP PO DAILY January 24, 2019 12:00am Start: 01-24-2019 take 1 capsule by mo uth once daily Cod Liver Oil Active 1 CAP PO DAILY January 23, 2019 11:00pm Cod Liver Oil capsule (2 sources) Start: 01-24-2019 Cod Liver Oil capsule Active 1 NMA PO DAILY January 24, 2019 12:00am Homocysteine Factors (4 sources) Start: 03-08-2019 Homocysteine F actors Active 1 NMA PO TWICE A DAY March 08, 2019 12:00am Start: 03-08-2019 take 1 capsule by [facility] twice daily Homocysteine Factors Active 1 CAP PO TWICE A DAY March 08, 2019 12:00am Start: 03-08-2019 take 1 capsule by [facility] twice daily Homocysteine Factors Active 1 CAP PO TWICE A DAY March 07, 2019 11:00pm Magnesium (4 sources) Start: 01-24-2019 take 1 tablet by [facility] once daily Magnesium 250 mg tablet Active 250 mg PO DAILY January 24, 2019 12:00am Start: 01-24-2019 take 250 mg by mouth once gilberto y Magnesium Active 250 MG PO DAILY January 24, 2019 12:00am Start: 01-24-2019 take 250 mg by mouth once gilberto y Magnesium Active 250 MG PO DAILY January 23, 2019 11:00pm pantoprazole 40 mg delayed release oral tablet (1 source) Proton Pump Inhibitor Start: 10-18-2024 take 1 tablet by mouth once daily Pantoprazole 40 mg tablet,delayed release (DR/EC) Active 40 mg PO DAILY October 18, 2024 12:00am progesterone 200 mg oral capsule (3 sources) Progesterone Start: 09-19-2024 take 1 capsule by mouth at bedtime Progesterone Micronized 200 mg capsule Active 200 mg PO AT BEDTIME September 19, 2024 12:00am Start: 07-17-2020 take 1 capsule by [facility] every twenty-four hours as needed progesterone micronized (PROMETRIUM) 200 mg capsule Take 200 mg by mouth at bedtime as needed. 0 07/17/2020 Active Comment on above: Take 200 mg by mouth at bedtime as needed. ubidecarenone 150 mg oral capsule (5 sources) Start: 01-24-2019 Coenzyme Q10 (Co Q-10) 150 mg capsule Active 150 mg PO DAILY January 24, 2019 12:00am Comment on above: Take by mouth. Vibegron (2 sources) Start: 09-19-2024 take 1 tablet by mouth once daily Vibegron (Gemtesa) 75 mg tablet Active 75 mg PO daily September 19, 2024 12:00am Vitamin D3-Vitamin K2 (Mk4) (2 sources) Start: 03-08-2019 Vitamin D3-Vitamin K2 (Mk4) Active 1 EACH PO DAILY March 08, 2019 12:00am Start: 03-08-2019 Vitamin D3-Vit boswell K2 (Mk4) Active 1 EACH PO DAILY March 07, 2019 11:00pm Vitamin D3-Vitamin K2 (Mk4) 1 EACH tablet (2 sources) Start: 03-08-2019 take 1 tablet by mouth once daily Vitamin D3-Vitamin K2 (Mk4) 1 EACH tablet Active 1 NMA PO DAILY March 08, 2019 12:00am Completed/Discontinued Medications Medication Drug Class(es) Dates Sig (Normalized) Sig (Original) acetaminophen 325 mg / oxyCODONE hydrochloride 5 mg oral tablet (8 sources) Opioid Agonist Start: 09-25-2020 End: 09-13-2024 Oxycodone-Acetamino phen (Percocet) 5-325 mg tablet Discontinued 1 {tbl} PO Q8H as needed for pain 04 12September 25, 2020 September 13, 2024 1:13pm Start: 03-15-2019 End: 03-27-2019 Oxycodone-Acetaminophen 1 TA BLET tablet Discontinued 1 - 2 {tbl} PO EVERY 6 HOURS NEEDED as needed for Pain 29 11March 15, 2019 March 21, 2019 1:00am March 27, 2019 1:10am Start: 03-15-2019 End: 03-27-2019 take 1 tablet by mouth every six hours as needed Oxycodone-Acetaminophen Discontinued 1 - 2 TABLET PO EVERY 6 HOURS NEEDED 29 11March 15, 2019 March 27, 2019 1:10am albuterol 0.83 mg/ml inhalation solution (2 sources) beta2-Adrenergic Agonist Start: 02-17-2021 take 1 dose by inhalation every four hours albuterol (PROVENTIL) 2.5 mg /3 mL (0.083 %) nebulizer solution inhale 1 vial in nebulizer every 4 hours if needed 0 02/17/2021 Active Comment on above: albuterol sulfate 2. 5 mg/3 mL (0.083 %) solution for nebulization inhale 1 vial in nebulizer every 4 hours if needed inhale 1 vial in neb ulizer every 4 hours if needed azithromycin 250 mg oral tablet (2 sources) Macrolide Antimicrobial Start: 02-17-2021 azithromycin (ZITHROMAX) 250 mg tablet take 2 tablets by mouth on day 1 then take 1 tablet once daily for 4 days 0 02/17/2021 Active Comment on above: azithromycin 250 mg tablet take 2 tablets by mouth on day 1 then take 1 tablet once daily for 4 days take 2 tablets by mo ut on day 1 then take 1 tablet once daily for 4 days budesonide 0.25 mg/ml inhalation suspension (2 sources) Corticosteroid Start: 02-17-2021 take 1 dose by inhalation twice daily budesonide (PULMICORT) 0.5 mg/2 mL nebulizer solution inhale 1 vial in nebulizer twice a day for 10 days 0 02/17/2021 Active Comment on above: budesonide 0.5 mg/2 mL suspension for nebulization inhale 1 vial in nebulizer twice a day for 10 days inhale 1 vial in neb ulizer twice a day for 10 days cephalexin 500 mg oral capsule (8 sources) Cephalosporin Antibacterial Start: 09-25-2020 End: 09-13-2024 take 1 capsule by mouth every twelve hours Cephalexin 500 mg capsule Discontinued 500 mg PO EVERY 12 HOURS 6 September 25, 2020 12:00am September 13, 2024 1:13pm Start: 03-16-2019 End: 03-27-2019 take 1 capsule by mouth every twelve hours Cephalexin 500 MG capsule Discontinued 500 mg PO EVERY 12 HOURS 6 3 March 16, 2019 12:00am March 18, 2019 12:00am March 27, 2019 1:09am docusate sodium 100 mg oral capsule (1 source) Start: 04-25-2021 take 1 capsule by mouth every twelve hours as needed docusate sodium (COLACE) 100 mg capsule Take 1 capsule by mouth twice daily as needed for constipation. 30 capsule 0 04/25/2021 Active Comment on above: Take 1 capsule by [facility] twice daily as needed for constipation. estradiol 0.1 mg/ml vaginal cream (5 sources) Estrogen Start: 01-24-2019 estradiol (EST RACE) 0.01 % (0.1 mg/gram) vaginal cream Estradiol (Estrace) 0.01 % (0.1 mg/gram) cream Active 1 GM VAGINAL TWICE A WEEK January 24, 2019 9:04am 0 01/24/2019 Active Start: 01-24-2019 Estradiol (Est race) 0.01 % (0.1 mg/gram) cream Active 1 g VAGINAL TWICE A WEEK January 24, 2019 12:00am Comment on above: Estradiol (Estrace) 0.01 % (0.1 mg/gram) cream Active 1 GM VAGINAL TWICE A WEEK January 24, 2019 9:04am hydrocortisone 25 mg/ml topical cream (1 source) Corticosteroid hydrocortisone (PROCTO-MED HC) 2.5 % rectal cream Procto-Med HC 2.5 % topical cream perineal applicator apply thin layer to affected area 2 to four times a day 0 Active Comment on above: Procto-Med HC 2.5 % topical cream perineal applicator apply thin layer to affected area 2 to four times a day hydrOXYzine hydrochloride 25 mg oral tablet (10 sources) Antihistamine Start: 021 take 1 tablet by mouth once daily hydrOXYzine HCl (ATARAX) 25 mg tablet Take 25 mg by mouth once daily. 0 01/08/2021 Active Start: 03-16-2019 Hydroxyzine Hc l 25 MG tablet Active 25 mg PO NEEDED as needed for Anxiety 0 March 16, 2019 6:03pm take 1/2 tab until seen in the office Thursday Start: 03-08-2019 End: 03-16-2019 Hydroxyzine Hcl 25 MG tablet Discontinued 25 mg PO NEEDED as needed for Anxiety March 08, 2019 12:00am March 16, 2019 6:03pm Comment on above: Take 25 mg by mouth once daily. hydroxyzine HCl 25 m g tablet take 1 tablet by mouth once daily as directed lisinopril 10 mg oral tablet (5 sources) Angiotensin Converting Enzyme Inhibitor Start: 01-24-2019 lisinopril (ZESTRIL, PRINIVIL) 10 mg tablet 20 mg. 0 01/24/2019 Active Start: 01-24-2019 take 20 mg by mouth once daily Lisinopril Active 20 MG PO DAILY January 24, 2019 12:00am Comment on above: 20 mg. magnesium oxide 250 mg oral tablet (1 source) Start: 01-25-20 Magnesium Oxide 250 mg magnesium tab 250 mg. 0 01/24/2019 Active Comment on above: 250 mg. methenamine hippurate 1000 mg oral tablet (1 source) Start: 10-04-19 take 1 tablet by mouth twice daily Methenamine Hippurate (HIPREX) 1 gram tablet Take 1 g by mouth twice daily. 0 10/03/2020 Active Comment on above: Take 1 g by mouth tw ice daily. metroNIDAZOLE 500 mg oral tablet (4 sources) Nitroimidazole Antimicrobial Start: 09-26-19 End: 09-14-19 take 1 tablet by mouth twice daily Metronidazole (Flagyl) 500 mg tablet Discontinued 500 mg PO TWICE A DAY 14 September 25, 2020 12:00am September 13, 2024 1:13pm Dayton-3 1,050 mg, Fish Oil, 1,050-1,200 mg cap (1 source) Dayton-3 1,050 mg , Fish Oil, 1,050-1,200 mg cap Take by mouth once daily. 0 Active Comment on above: Take by mouth once d aily. ondansetron 4 mg oral tablet (7 sources) Serotonin-3 Receptor Antagonist Start: 02-18-20 take 1 tablet by mouth every eight hours as needed ondansetron (ZOFRAN) 4 mg tablet Take 1 tablet by mouth every 8 hours as needed for nausea/vomiting. 20 tablet 0 04/25/2021 Active Start: 09-25-2020 End: 09-13-2024 take 1 tablet by mouth every eight hours as needed for nausea Ondansetron Hcl 8 mg tablet Discontinued 8 mg PO EVERY 8 HOURS NEEDED as needed for Nausea September 25, 2020 12:00am September 13, 2024 1:13pm Comment on above: ondansetron HCl 4 mg tablet take 1 to 2 tablets by mouth every 8 hours if needed for nausea take 1 to 2 tablets by mouth every 8 hours if needed for nausea Take 1 tablet by madyson th every 8 hours as needed for nausea/vomiting. penicillin v potassium 500 mg oral tablet (2 sources) Start: take 1 tablet by mouth four times daily penicillin V potassium (V-CILLIN, VEETIDS) 500 mg tablet take 1 tablet by mouth four times a day until finished 0 01/10/2021 Active Comment on above: penicillin V potassi um 500 mg tablet take 1 tablet by mouth four times a day until finished take 1 tablet by madyson th four times a day until finished phenazopyridine hydrochloride 200 mg oral tablet (4 sources) Start: End: take 1 tablet by mouth three times daily as needed for muscle spasms Phenazopyridine 200 MG tablet Discontinued 200 mg PO 3 TIMES DAILY NEEDED as needed for Bladder Spasms 14 12March 16, 2019 12:00am March 22, 2019 1:00am March 27, 2019 1:10am predniSONE 50 mg oral tablet (2 sources) Start: 021 take 1 tablet by mouth once daily at mealtime predniSONE (DELTASONE) 50 mg take 1 tablet by mouth every morning with food for 5 days 0 02/17/2021 Active Comment on above: prednisone 50 mg tab let take 1 tablet by mouth every morning with food for 5 days take 1 tablet by madyson th every morning with food for 5 days VITAMIN D3-VITAMIN K2, MK4, ORAL (1 source) Start: 019 VITAMIN D3-VITAMIN K2, MK4, ORAL Vitamin D3/Vitamin K2 (Mk4) Active 1 EA DAILY March 08, 2019 10:03am 0 03/08/2019 Active Comment on above: Vitamin D3/Vitamin K 2 (Mk4) Active 1 EA DAILY March 08, 2019 10:03am Problems Problem Classification Problem Date Documented Date Episodic/Chronic Acute posthemorrhagic anemia (4 sources) Anemia following acute postoperative blood loss; Translations: [Acute posthemorrhagic anemia] 03-16-2019 Episodic Esophageal disorders (2 sources) Laryngopharyngeal reflux; 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 Thus I recommended to patient, that in addition to working to elevate her head at night, I would recommend she begin a defined course of PPI therapy. Patient was initially reluctant given her history of B12 deficiency but when we agreed to a 1 month duration of therapy she agreed. Essential hypertension (4 sources) Elevated blood pressure; Translations: [Essential (primary) hypertension] 11-10-2018 Chronic Fluid and electrolyte disorders (4 sources) Hyponatremia; Translations: [Hypo-osmolality and hyponatremia] 11-10-2018 Episodic Genitourinary symptoms and ill-defined conditions (4 sources) Blood in urine; Translations: [Hematuria, unspecified] 11-10-2018 Episodic Open wounds of head; neck; and trunk (4 sources) Laceration of vagina; Translations: [Laceration without foreign body of vagina and vulva, initial encounter] 09-25-2020 Episodic Other diseases of bladder and urethra (4 sources) Urethral hypermobility; Translations: [Hypermobility of urethra] 03-15-2019 Episodic Other female genital disorders (4 sources) Endometrial hyperplasia; Translations: [Endometrial hyperplasia, unspecified] 03-18-2019 Chronic Other female genital disorders (4 sources) Vaginal bleeding; Translations: [Abnormal uterine and vaginal bleeding, unspecified] 09-25-2020 Chronic Other screening for suspected conditions (not mental disorders or infectious disease) (2 sources) Encounter for screening for malignant neoplasm of colon; Translations: [Encounter for screening for malignant neoplasm of colon] Onset: 3 Episodic Other upper respiratory disease (1 source) Dysphonia; Translations: [Dysphonia] Onset: 5 Episodic Prolapse of female genital organs (6 sources) Prolapse of urethra; 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 Interestingly, she otherwise denies other compressive symptoms. Patient has a history of evaluation for these thyroid nodules dating back to at least 2013 when she underwent FNA biopsy of a left sided thyroid nodule. Unfortunately, we do not have those original records to compare exact sizes. Additionally, patient underwent imaging in 2019 which does characterize both her lobes and nodules with exact sizes. I used this as a backdrop to compare her most recent imaging completed August 11, 2024 with this imaging and discussed both those findings as well as their significance by introducing the TI-RADS rating system. I shared that her 3.5 cm TI-RADS 3 nodule of the left lobe was clearly indicated for FNA biopsy but also made the argument that I believed her 2.4 cm TI-RADS 3 inferior pole nodule also could be considered for biopsy based on CORKY volume calculation that found it to have grown by over 100% in the last 5 years. Patient was receptive and the procedure was completed in uncomplicated fashion during today's visit. Full details are given in the procedures section of this note. Additionally, I described to Ms. Pettit the need to refer for laryngoscopy as this may provide information not only on the mobility of her vocal cords but also any additional possible etiologies for her hoarseness. I do find it noteworthy that despite the greater than 100% growth of her inferior pole nodule the overall size of her left thyroid lobe appears relatively stable (just +0.38% by volume since 2019). I briefly introduced surgical options to include thyroid lobectomy versus total thyroid. I also suggested that we could find a natural breakpoint in her investigatory workup for this nodule if she chose to have her procedure done in [place] given her plans for relocation. I described how this may be an appropriate course of action to take if we confirm that the nodules are benign given the implications for postoperative follow-up. Yet, Ms. Pettit makes it clear that she would be interested in having her surgery here in [place] as she is feels comfortable given her experience with [facility] for other prior surgeries.Update 10/18/2024: Patient's status post repeat FNA biopsy of 2 left-sided thyroid nodules. Once again, pathology noted scant cellularity particularly for patient's more superior nodule so additional pass was made to try to ensure a diagnostic result. Post procedure wound care instructions were reviewed. Patient tolerated the procedure without complication. Patient is a 79-year -old female, euthyroid from an endocrine standpoint, who presents for evaluation of thyroid nodularity after a primary complaint of new onset hoarseness beginning May of this year. Interestingly, she otherwise denies other compressive symptoms. Patient has a history of evaluation for these thyroid nodules dating back to at least 2013 when she underwent FNA biopsy of a left sided thyroid nodule. Unfortunately, we do not have those original records to compare exact sizes. Additionally, patient underwent imaging in 2019 which does characterize both her lobes and nodules with exact sizes. I used this as a backdrop to compare her most recent imaging completed August 11, 2024 with this imaging and discussed both those findings as well as their significance by introducing the TI-RADS rating system. I shared that her 3.5 cm TI-RADS 3 nodule of the left lobe was clearly indicated for FNA biopsy but also made the argument that I believed her 2.4 cm TI-RADS 3 inferior pole nodule also could be considered for biopsy based on CORKY volume calculation that found it to have grown by over 100% in the last 5 years. Patient was receptive and the procedure was completed in uncomplicated fashion during today's visit. Full details are given in the procedures section of this note. Additionally, I described to Ms. Pettit the need to refer for laryngoscopy as this may provide information not only on the mobility of her vocal cords but also any additional possible etiologies for her hoarseness. I do find it noteworthy that despite the greater than 100% growth of her inferior pole nodule the overall size of her left thyroid lobe appears relatively stable (just +0.38% by volume since 2019). I briefly introduced surgical options to include thyroid lobectomy versus total thyroid. I also suggested that we could find a natural breakpoint in her investigatory workup for this nodule if she chose to have her procedure done in [place] given her plans for relocation. I described how this may be an appropriate course of action to take if we confirm that the nodules are benign given the implications for postoperative follow-up. Yet, Ms. Pettit makes it clear that she would be interested in having her surgery here in [place] as she is feels comfortable given her experience with [facility] for other prior surgeries. Unclassified (4 sources) Hoarseness; Translations: [R49.0 - Dysphonia,E04.1 - Nontoxic single thyroid nodule] Results Test Name Value Interpretation Reference Range Facil ity 3D MAMM BILAT SCREENon 12-08 3D MAMM BILAT SCREEN [place] [id number] Patient: MATT PETTIT Phone#: : [phone] Age: 79 Gender: F Pt. Type: Out Account: [id number] Location: Ordering: AugustBrittni GENAO Exam Date: 12/08/2024/10:59 Family Phys: Charge Code: [id number] Physician: [place] Order #: [id number] Dose#: PROCEDURE: BILATERAL SCREENING BREAST TOMOSYNTHESIS MAMMOGRAM WITH CAD COMPARISON: [facility], 3D BILAT SCREEN, 07/08/2022, 13:02. [facility], 3D BILAT SCREEN, 11/30/2023, 13:29. INDICATIONS: Screening. BREAST COMPOSITION: The breasts are heterogeneously dense, which may obscure small masses FINDINGS: DIAGNOSTIC CATEGORY 1--NEGATIVE: RIGHT BREAST: No significant suspicious finding. No significant change has occurred. LEFT BREAST: No significant suspicious finding. No significant change has occurred. RECOMMENDATIONS: ROUTINE MAMMOGRAM AND CLINICAL EVALUATION IN 12 MONTHS. PLEASE NOTE: A NORMAL MAMMOGRAM DOES NOT EXCLUDE THE POSSIBILITY OF BREAST CANCER. A CLINICALLY SUSPICIOUS PALPABLE LUMP SHOULD BE BIOPSIED. THIS FACILITY UTILIZES A REMINDER SYSTEM TO ENSURE THAT ALL PATIENTS RECEIVE REMINDER LETTERS FOR APPOINTMENTS. THIS INCLUDES REMINDERS FOR ROUTINE MAMMOGRAMS, DIAGNOSITC MAMMOGRAMS, OR OTHER BREAST IMAGING INTERVENTIONS WHEN APPROPRIATE. THIS PATIENT WILL BE PLACED IN THE APPROPRIATE REMINDER SYSTEM. Dictated by: Teetee Lucio MD on 12/08/2024 at 17:32 Approved by: Teetee Lucio MD on 12/08/2024 at 17:37 Normal [facility] Special Stain Group IIon Special Stain Group II -------- Patient Age/Sex Location Account Attending Physician -------- MATT PETTIT 79/F [facility] [id number] Dr. Derian Guerra MD -------- Specimen: [id number] Received: 10/18/24 Status: CASSIDY Terry Num: [id number] Spec Type: ASP OUT Subm Dr: Dr. Derian Guerra MD HEADER OPERATION: Fine needle aspiration of left thyroid nodules x2 PRE-OP DIAGNOSIS: Left thyroid nodule TISSUE SUBMITTED: A- Left superior thyroid nodule, B- Left inferior thyroid nodule -------- DIAGNOSIS CYTOLOGY A. Thyroid, left superior, FNA: * Atypia of undetermined significance (TBS III) - see Comment. B. Thyroid, left inferior, nodule, FNA: * Atypia of undetermined significance (TBS III) - see Comment. COMMENT The specimen is evaluated at the time of biopsy by Dr. Slaughter. Immediate Evaluation = A1- Rare cells. A2. Blood. B1. Few cells. B2. Few cells. Per recommendations and a clinician-approved plan (a call was made to the referring doctor about the recommendation), genomic testing (Afirma) has been submitted. Results will be reported as an addendum and faxed to clinician. CYTOLOGY STUDY Slides are reviewed. CYTOLOGY GROSS A. Received is 30 ml of cytolyt with <1ml of red fluid labeled with the patient's name and and designated per the requisition as Left superior thyroid. Submitted for cytology and cell block preparation. B. Received is 30 ml of cytolyt with <1ml of red fluid labeled with the patient's name and and designated per the requisition as Left inferior thyroid nodule. Submitted for cytology and cell block preparation. 10/18/2024 CPT: 62962e5, 82313h0 -------- -------- Patient Age/Sex Location Account Attending Physician -------- MATT PETTIT 79/F LABSPEC [id number] Dr. Derian Guerra MD -------- ADDENDUM Addendum 1 Entered: 11/10/24-899 AFIRMA RESULTS REPORT - A RESULTS INTERPRETATION: The result of this 3.5 cm Hannibal III nodule A is Afirma GSC benign, which suggests a low risk of cancer of approximately 4%. Treatment like a cytologically benign nodule may be appropriate, including clinical correlation. Afirma XA is not performed on GSC Benign nodules. TERT promoter region analysis is not performed on GSC Benign nodules. AFIRMA RESULTS REPORT - B RESULTS INTERPRETATION: The result of this 2.4 cm Hannibal III nodule B is Afirma GSC benign, which suggests a low risk of cancer of approximately 4%. Treatment like a cytologically benign nodule may be appropriate, including clinical correlation. Afirma XA is not performed on GSC Benign nodules. TERT promoter region analysis is not performed on GSC Benign nodules. Please see complete report in e-chart or EMR Addendum Signed (signature on file) Dr. Pippa Slaughter MD 11/10/24 0945 -------- Signed (signature on file) Dr. Pippa Slaughter MD 10/28/24 1225 -------- Normal [facility] Comment on above: Performed By: #### P SSII #### [facility] [address] [place], [place] [address], [place], [address] Surgery Visit Reporton 10-18 Surgery Visit Report [facility] [address] [place], [place] [address] [address] [place] [address] OFFICE VISIT Date of Service: 10/18/24 MR#: [id number] Acct: [id number] Name: MATT PETTIT Rep #: [id number] : 1945 Provider: Dr. Derian zuluaga MD Age/Sex: 79/F Location: [facility] Status: Signed Intake Vital Signs 09/13/24 13:12 10/18/24 09:02 Height 5 ft 7 in Weight: 127 lb 6 oz BMI 19.9 BP 182/80 H 185/78 H Blood Pressure Location Lt brachial Rt radial Position Sitting Sitting Respiration 16 18 Pulse 65 57 L Pulse Source Monitor Monitor Temp 97.6 F L Temp Source Temporal Pulse Oximetry (%) 97 96 Oxygen Delivery Method room air room air Intake Visit Reasons: REPEAT THYROID FNA Chief Complaint: repeat thyroid fna Is patient in pain?: No Allergies metoprolol Adverse Reaction (Intermediate, Verified 10/18/24 09:03) palpitations morphine Adverse Reaction (Verified 10/18/24 09:03) Nausea Medications ???Medication ???Instructions ???Recorded ???Confirmed ???Type ascorbic acid (vitamin C) 500 mg 500 mg PO DAILY supplement 9 10/18/24 History capsule cod liver oil 1 cap PO DAILY 01/24/19 10/18/24 H istory coenzyme Q10 150 mg capsule (Co 150 mg PO DAILY supplement 9 10/18/24 History Q-10) estradiol 0.01% (0.1 mg/gram) 1 g vaginal 2XW 01/24/19 10/18/24 History vaginal cream (Estrace) lisinopril 10 mg tablet 20 mg PO DAILY htn 01/24/19 History magnesium 250 mg tablet 250 mg PO DAILY 01/24/19 10/18/24 History Homocysteine Factors 1 cap PO BID supplement 03/08/19 0 10/18/24 History cholecalciferol (vit D3) 1,000 1 ea PO DAILY supplement 03/08/19 10/18/24 History unit-vitamin K2 (MK4) 100 mcg tablet hydroxyzine HCl 25 mg tablet 25 mg PO PRN PRN Anxiety ##0 03/1610/18/24 Rx atenolol 25 mg tablet 12.5 mg PO QHS htn 09/19/24 History citrulline 600 mg capsule 3 g PO BID 09/19/24 10/18/24 Histo ry progesterone micronized 200 mg 200 mg PO QHS 09/19/24 10/18/24 Hi story capsule vibegron 75 mg tablet (Gemtesa) 75 mg PO QDAY 09/19/24 10/18/24 Hi story pantoprazole 40 mg tablet,delayed 40 mg PO DAILY lpr #30 tabs 10/1810/18/24 Rx release Have you fallen in the past year?: No PFSH Medical History Thyroid nodule Vaginal laceration Diverticulitis Mitral valve prolapse Hypothyroidism Hypertension Anxiety Surgical History History of shoulder surgery Cataract H/O adenoidectomy History of tonsillectomy H/O tubal ligation H/O cystoscopy Family History (Updated 09/19/24 @ 08:44 by Carter Wren RN) Mother Diabetes Hypertension CHD (congenital heart disease) Father CVA (cerebral vascular accident) Hypertension Goiter Other Anxiety Arthritis Autoimmune disorder Depression Heart disease Osteoporosis Thyroid disorder Social History Smoking Status: Never smoker alcohol intake: never substance use type: does not use caffeine: Yes what type of physical activity do you participate in: none and walking seatbelt use: always do you feel safe at home: Yes additional social history: [employer] Patient is retired HPI HPI HPI: Patient is a 24-twbl-pmra-old female who presents for evaluation of thyroid nodularity. She is here for follow-up and repeat FNA after consult 09/13/2024 with nondiagnostic results. She reports of her voice concerns that she is potentially more convinced that this is reflux???mediated. She confesses that she has not been sleeping with her head elevated and suspects this is something that she could improve upon with meaningful results. She otherwise denies eating anything after 5:30 PM and states that she has not worn for much caffeine. She later expresses some concern about starting acid reducing medication as she has been told she has low vitamin B12 levels. Below is recapitulated from patient's initial consultation visit for ease of review: Patient is a 41-vnpv-cbsb-old female who presents for evaluation of thyroid nodularity. They are referred for surgical consultation from Dr. Arora. 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 She believes this observation was first made circa 2011. As she prepared for today's visit she found records of a FNA biopsy in 2013. She recalls being told at that time that her nodule was benign. She is uncertain where exactly the biopsy was performed but notes that it was back in he (more content not included)... Normal [facility] Special Stain Group IIon Special Stain Group II -------- Patient Age/Sex Location Account Attending Physician -------- MATT PETTIT 79/F LABSPEC [id number] Dr. Derian Guerra MD -------- Specimen: [id number] Received: 09/13/24 Status: CASSIDY Terry Num: [id number] Spec Type: ASP OUT Subm Dr: Dr. Derian Guerra MD HEADER OPERATION: Fine needle aspiration of left thyroid nodule x2 PRE-OP DIAGNOSIS: Left thyroid nodule TISSUE SUBMITTED: A- Left inferior thyroid nodule, B- Left superior thyroid nodule -------- DIAGNOSIS CYTOLOGY A. Thyroid, fna - left inferior: * Nondiagnostic due to insufficient cellular material * Cyst fluid B. Thyroid, fna - left superior: * Nondiagnostic due to insufficient cellular material C. Thyroid, fna - left superior thyroid aspirate: * Nondiagnostic due to insufficient cellular material COMMENT The specimen is evaluated at the time of biopsy by Dr. Slaughter. Immediate Evaluation = A1- Adequate. A2- Macrophages, rare follicular cells. A3- No cells. A4- Blood. B1- Blood. B2- Blood. B3- Blood. B4- Blood. B5- Blood, scant colloid. B6- One group of follicular cells. CYTOLOGY STUDY Slides are reviewed. CYTOLOGY GROSS A. Received is 30 ml of red-cloudy fluid cytolyt with particles, 4 DQ and 3 PAPS labeled with the patient's name and and designated per the requisition as Left inferior thyroid nodule. Submitted for cytology and cell block preparation. B. Received is 30 ml of red-cloudy fluid cytolyt with particles, 6 DQ and 6 PAPS labeled with the patient's name and and designated per the requisition as Left superior thyroid nodule. Submitted for cytology and cell block preparation. C. Received is 6 ml of red-cloudy fluid labeled with the patient's name and and designated per the requisition as Left superior thyroid nodule aspirate. Submitted for -------- Patient Age/Sex Location Account Attending Physician -------- MATT PETTIT 79/F LABSPEC [id number] Dr. Derian Guerra MD -------- cytology and cell block preparation. 09/14/2024 CPT: 81074z2 Signed (signature on file) Dr. Brooklynn Pacheco DO 10/03/24 1050 -------- Normal [facility] Comment on above: Performed By: #### P SSII #### [facility] [address] [place] [address] [place]. [place], [place], [address] Surgery Visit Reporton 09-13 Surgery Visit Report [facility] [address] [place], [place] [address]. [address] [place], [place] [address] OFFICE VISIT Date of Service: 09/13/24 MR#: [id number] Acct: [id number] Name: MATT PETTIT Rep #: [id number] : 1945 Provider: Dr. Derian zuluaga MD Age/Sex: 79/F Location: [facility] Status: Signed Intake Vital Signs 09/25/20 16:40 09/13/24 13:12 Height 5 ft 7 in 5 ft 7 in Weight: 127 lb 6 oz BMI 19.9 BP 182/80 H Blood Pressure Location Lt brachial Position Sitting Respiration 16 Pulse 65 Pulse Source Monitor Temp 97.6 F L Temp Source Temporal Pulse Oximetry (%) 97 Oxygen Delivery Method room air Intake Visit Reasons: thyroid nodule Chief Complaint: thyroid nodule Is patient in pain?: No Allergies metoprolol Adverse Reaction (Intermediate, Verified 09/13/24 13:12) palpitations morphine Adverse Reaction (Verified 09/13/24 13:12) Nausea Medications ???Medication ???Instructions ???Recorded ???Confirmed ???Type ascorbic acid (vitamin C) 500 mg 500 mg PO DAILY supplement 9 09/13/24 History capsule cod liver oil 1 cap PO DAILY 01/24/19 09/13/24 H istory coenzyme Q10 150 mg capsule (Co 150 mg PO DAILY supplement 9 09/13/24 History Q-10) estradiol 0.01% (0.1 mg/gram) 1 g vaginal 2XW 01/24/19 09/13/24 History vaginal cream (Estrace) lisinopril 10 mg tablet 20 mg PO DAILY htn 01/24/19 History magnesium 250 mg tablet 250 mg PO DAILY 01/24/19 09/13/24 History Homocysteine Factors 1 cap PO BID supplement 03/08/19 0 09/13/24 History cholecalciferol (vit D3) 1,000 1 ea PO DAILY supplement 03/08/19 09/13/24 History unit-vitamin K2 (MK4) 100 mcg tablet atenolol 25 mg tablet 25 mg PO QHS htn ##0 03/16/1908/17 Rx hydroxyzine HCl 25 mg tablet 25 mg PO PRN PRN Anxiety ##0 03/1609/13/24 Rx Have you fallen in the past year?: No PFSH Medical History (Updated 09/13/24 @ 16:[address] Derian Guerra MD) Thyroid nodule Vaginal laceration Diverticulitis Mitral valve prolapse Hypothyroidism Hypertension Anxiety Surgical History History of shoulder surgery Cataract H/O adenoidectomy History of tonsillectomy H/O tubal ligation H/O cystoscopy Family History (Updated 09/13/24 @ 13:12 by Gudelia De Leon LPN) Mother Diabetes Hypertension CHD (congenital heart disease) Father CVA (cerebral vascular accident) Hypertension Goiter Social History Smoking Status: Never smoker alcohol intake: never substance use type: does not use caffeine: Yes what type of physical activity do you participate in: none and walking seatbelt use: always do you feel safe at home: Yes additional social history: [employer] Patient is retired HPI HPI HPI: Patient is a 36-jgpj-iwhp-old female who presents for evaluation of thyroid nodularity. They are referred for surgical consultation from Dr. Arora. 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 She believes this observation was first made circa 2011. As she prepared for today's visit she found records of a FNA biopsy in 2013. She recalls being told at that time that her nodule was benign. She is uncertain where exactly the biopsy was performed but notes that it was back in her hometown [place] [facility]. Additionally, she states that she had forgotten about a repeat ultrasound that was performed at [facility] in 2019 as she was preparing for today's visit. She notes that today's visit was occasioned by a renewed interest in her thyroid after describing some hoarseness of voice to her primary care provider. She notes that this hoarseness came about acutely 1 day in May several weeks after her passed from complications related to Parkinson's disease. She states that this hoarseness has puzzled her as she has never smoked a day in her life and has no history of reflux. She does note that if anything the hoarseness seems to be a tad better. They do not experience difficulty with swallowing. They do not complain of a new cough per se but do confirm a history of a cough which she has always related to her use of lisinopril. They do not have a history of snoring/sleep apnea. Additionally, their weight has been stable apart from a history of weight a small amount of weight loss achieved through intentional effort. There is some history of recent fatigue, patient qualifies this as being related to the stress of recent events (referencing the passing of her and a (more content not included)... Normal [facility] THYROIDon 08-11-2024 US THYROID [place] [id number] Patient: MATT PETTIT Phone#: : 1945 Age: 78 Gender: F Pt. Type: Out Account: [id number] [facility]: [facility] Exam Date: 08/11/2024/11:03 Family Phys: DR. HANK GOLD Charge Code: 936709 Physician: [place] Order #: [id number] Dose#: PROCEDURE: THYROID ULTRASOUND COMPARISON: [facility], [place], THYROID, 07/15/2019, 11:07. INDICATIONS: Thyroid nodules TECHNIQUE: High-resolution ultrasound was performed of the thyroid gland. FINDINGS: RIGHT LOBE: The right thyroid lobe is 1.9 x 2.5 by 4.4 centimeters. At the upper pole is a hypoattenuating 8 x 4 x 7 millimeter TR 4 nodule not requiring further evaluation. At the mid pole is a 13 x 13 x 17 millimeter TR 3 nodule. Re-evaluation at years 1, 3 and 5 is recommended. LEFT LOBE: Left thyroid lobe is 5.3 x 3.5 x 2.8 centimeters. There is a 2.5 x 2.2 by 3.5 centimeter TR 3 nodule. Appearance is similar to prior exam. Based on size FNA is recommended. At the lower pole 2.4 x 1.2 x 1.6 centimeter TR 3 nodule. Follow-up evaluation at 1, 3 and 5 years is recommended. ISTHMUS: Normal. No visible mass, cyst, calcification, enlargement, or abnormal echotexture. Isthmus measures 0.3 cm. OTHER: None. CONCLUSION: 1. Right lobe TR 4 and TR 3 nodule process. Re-evaluation at 1, 3 and 5 years is recommended. 2. Left lobe TR 3 nodules are present. The larger is 3.5 centimeters and FNA is recommended. Dictated by: Poornima Panchal MD on 08/11/2024 at 12:34 Approved by: Poornima Panchal MD on 08/11/2024 at 13:08 Normal [facility] FITon 05-12-2023 Lower GI hemoglobin IA Ql (Stl) Negative Normal Negative [facility] ([place]) Comment on above: Performed By: #### F IT #### [place] [address] CNOVon 11-20-2021 CNOV Office Visit (UROLMD ) MATT PETTIT ([id number]) 1945 F Date Time Provider Department 11/20/21 10:15 AM RICHARD CAM UROMARIXA During your visit today, we recorded the following information about you: Weight Height 59 kg 1.702 m Richard Cam MD 11/20/2021 11:20 AM Signed ESTABLISHED PATIENT VISIT HPI Henriqueruby Mono Pettit is a 76 year old female who presents post RALSCP. Overall she has been doing well. Has noted some anterior vaginal wall pressure. No hematuria No JERED On examination Graham is well supported. Anterior wall urethrocele. We discussed a possible urethrocele/cystocele repair. Her questions were answered She is going to decide how bothersome this is and if she would like to proceed. GLUCOSE UA (POCT) Negative 11/20/2021 BILIRUBIN UA (POCT) Negative 11/20/2021 KETONE UA (POCT) Negative 11/20/2021 SPECIFIC GRAVITY UA (POCT) 1.015 11/20/2021 HEMOGLOBIN/BLOOD UA (POCT) Trace-intact 11/20/2021 PH UA (POCT) 7.0 11/20/2021 PROTEIN UA (POCT) Negative 11/20/2021 UROBILINOGEN UA (POCT) 0.2 11/20/2021 NITRITE UA (POCT) Negative 11/20/2021 LEUKOCYTES UA (POCT) Negative 11/20/2021 COLOR UA (POCT) Yellow 11/20/2021 CLARITY UA (POCT) Clear 11/20/2021 REVIEW OF SYSTEMS GENERAL:No weight loss, malaise or fevers, No weight loss, malaise or fevers., SEE HPI GENITOURINARY: See HPI CONSTITUTIONALl: No recent fever or weight loss ALLERGIES Allergen Reactions - Morphine Vomiting - Metoprolol Other: See Comments Causes palpitations HISTORIES PAST MEDICAL HISTORY Diagnosis Date - COVID-01/2021. - HTN (hypertension) - MVP (mitral valve prolapse) No family history on file. Social History Tobacco Use - Smoking status: Never Smoker - Smokeless tobacco: Never Used Vaping Use - Vaping Use: Never used Substance Use Topics - Alcohol use: Not Currently - Drug use: Never MEDICATIONS: atenolol (TENORMIN) 25 mg tablet Take 25 mg by mouth daily at bedtime. lisinopril (ZESTRIL, PRINIVIL) 10 mg tablet 20 mg. Coenzyme Q10 150 mg cap Take by mouth. estradiol (ESTRACE) 0.01 % (0.1 mg/gram) vaginal cream Estradiol (Estrace) 0.01 % (0.1 mg/gram) cream Active 1 GM VAGINAL TWICE A WEEK January 24, 2019 9:04am ascorbic acid, vitamin C, 500 mg cap 500 mg. VITAMIN D3-VITAMIN K2, MK4, ORAL Vitamin D3/Vitamin K2 (Mk4) Active 1 EA DAILY March 08, 2019 10:03am Magnesium Oxide 250 mg magnesium tab 250 mg. [place]-3 1,050 mg, Fish Oil, 1,050-1,200 mg cap Take by mouth once daily. albuterol (PROVENTIL) 2.5 mg /3 mL (0.083 %) nebulizer solution albuterol sulfate 2.5 mg/3 mL (0.083 %) solution for nebulization inhale 1 vial in nebulizer every 4 hours if needed albuterol (PROVENTIL) 2.5 mg /3 mL (0.083 %) nebulizer solution inhale 1 vial in nebulizer every 4 hours if needed azithromycin (ZITHROMAX) 250 mg tablet azithromycin 250 mg tablet take 2 tablets by mouth on day 1 then take 1 tablet once daily for 4 days azithromycin (ZITHROMAX) 250 mg tablet take 2 tablets by mouth on day 1 then take 1 tablet once daily for 4 days budesonide (PULMICORT) 0.5 mg/2 mL nebulizer solution budesonide 0.5 mg/2 mL suspension for nebulization inhale 1 vial in nebulizer twice a day for 10 days budesonide (PULMICORT) 0.5 mg/2 mL nebulizer solution inhale 1 vial in nebulizer twice a day for 10 days hydrocortisone (PROCTO-MED HC) 2.5 % rectal cream Procto-Med HC 2.5 % topical cream perineal applicator apply thin layer to affected area 2 to four times a day hydrOXYzine HCl (ATARAX) 25 mg tablet Take 25 mg by mouth once daily. hydrOXYzine HCl (ATARAX) 25 mg tablet hydroxyzine HCl 25 mg tablet take 1 tablet by mouth once daily as directed ondansetron (ZOFRAN) 4 mg tablet ondansetron HCl 4 mg tablet take 1 to 2 tablets by mouth every 8 hours if needed for nausea ondansetron (ZOFRAN) 4 mg tablet take 1 to 2 tablets by mouth every 8 hours if needed for nausea penicillin V potassium (V-CILLIN, VEETIDS) 500 mg tablet penicillin V potassium 500 mg tablet take 1 tablet by mouth four times a day until finished penicillin V potassium (V-CILLIN, VEETIDS) 500 mg tablet take 1 tablet by mouth four times a day until finished predniSONE (DELTASONE) 50 mg prednisone 50 mg tablet take 1 tablet by mouth every morning with food for 5 days predniSONE (DELTASONE) 50 mg take 1 tablet by mouth every morning with food for 5 days docusate sodium (COLACE) 100 mg capsule Take 1 capsule by mouth twice daily as needed for constipation. ondansetron (ZOFRAN) 4 mg tablet Take 1 tablet by mouth every 8 hours as needed for nausea/vomiting. Methenamine Hippurate (HIPREX) 1 gram tablet Take 1 g by mouth twice daily. progesterone micronized (PROMETRIUM) 200 mg capsule Take 200 mg by mouth at bedtime as needed. Physical Exam Ht 170.2 cm (5' 7) Wt 59 kg (130 lb) BMI 20.36 kg/m? ASSESSMENT/PLAN: (N81.0) Urethrocele (more content not included)... Normal [facility] UA DIP, URINE (POC)on 2021 BILIRUBIN UA (POCT) Negative Negative [facility] CLARITY UA (POCT) Clear [facility] COLOR UA (POCT) Yellow [facility] GLUCOSE UA (POCT) Negative Negative mg/dL [facility] HEMOGLOBIN/BLOOD UA (POCT) Trace-intact Abnormal Negative [facility] KETONE UA (POCT) Negative [facility] LEUKOC[facility]TES [facility]A (POCT) Negative Negative [facility] NITRITE UA (POCT) Negative Negative [facility] PH UA (POCT) 7.0 4.5 - 8.0 [facility] inic Protein Ql (U) Negative Negative mg/dL [facility] SPECIFIC GRAVITY UA (POCT) 1.015 1.005 - 1.030 [facility] UROBILINOGEN UA (POCT) 0.2 E.U./dL Normal E.U./dL [facility] CNOVon 05-22-2021 CNOV Office Visit (UROLMD ) MATT PETTIT ([id number]) 1945 F Date Time Provider Department 05/22/21 1:30 PM RICHARD CAM During your visit today, we recorded the following information about you: Weight Height 57.2 kg 1.702 m Richard Cam MD 05/22/2021 2:05 PM Signed ESTABLISHED PATIENT VISIT HPI Matt Mono Pettit is a 75 year old female who presents post op. She is doing well. Her incisions are clean and intact and healing. On exam her vault is well supported. We discussed postoperative care and we will see her in follow-up in 3 months. Surgery/Procedure Date: 04/25/2021 Incision/Procedure Start Time: 1:33 PM Incision Close/Procedure End Time: 4:16 PM ? Patient Age: [age] year old ? Surgeon(s)/Procedural ist(s) and Underwriting Intern(s): Surgeon(s) and Role: * Richard Cam MD - Primary * Gary Beasley MD - Resident - Assisting Toggler: Ish Kaba SA ? Anesthesia: General ? 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 - HTN (hypertension) - MVP (mitral valve prolapse) No family history on file. Social History Tobacco Use - Smoking status: Never Smoker - Smokeless tobacco: Never Used Vaping Use - Vaping Use: Never used Substance Use Topics - Alcohol use: Not Currently - Drug use: Never MEDICATIONS: atenolol (TENORMIN) 25 mg tablet Take 25 mg by mouth daily at bedtime. lisinopril (ZESTRIL, PRINIVIL) 10 mg tablet 20 mg. Coenzyme Q10 150 mg cap Take by mouth. estradiol (ESTRACE) 0.01 % (0.1 mg/gram) vaginal cream Estradiol (Estrace) 0.01 % (0.1 mg/gram) cream Active 1 GM VAGINAL TWICE A WEEK January 24, 2019 9:04am ascorbic acid, vitamin C, 500 mg cap 500 mg. VITAMIN D3-VITAMIN K2, MK4, ORAL Vitamin D3/Vitamin K2 (Mk4) Active 1 EA DAILY March 08, 2019 10:03am Magnesium Oxide 250 mg magnesium tab 250 mg. [place]-3 1,050 mg, Fish Oil, 1,050-1,200 mg cap Take by mouth once daily. albuterol (PROVENTIL) 2.5 mg /3 mL (0.083 %) nebulizer solution albuterol sulfate 2.5 mg/3 mL (0.083 %) solution for nebulization inhale 1 vial in nebulizer every 4 hours if needed albuterol (PROVENTIL) 2.5 mg /3 mL (0.083 %) nebulizer solution inhale 1 vial in nebulizer every 4 hours if needed azithromycin (ZITHROMAX) 250 mg tablet azithromycin 250 mg tablet take 2 tablets by mouth on day 1 then take 1 tablet once daily for 4 days azithromycin (ZITHROMAX) 250 mg tablet take 2 tablets by mouth on day 1 then take 1 tablet once daily for 4 days budesonide (PULMICORT) 0.5 mg/2 mL nebulizer solution budesonide 0.5 mg/2 mL suspension for nebulization inhale 1 vial in nebulizer twice a day for 10 days budesonide (PULMICORT) 0.5 mg/2 mL nebulizer solution inhale 1 vial in nebulizer twice a day for 10 days hydrocortisone (PROCTO-MED HC) 2.5 % rectal cream Procto-Med HC 2.5 % topical cream perineal applicator apply thin layer to affected area 2 to four times a day hydrOXYzine HCl (ATARAX) 25 mg tablet Take 25 mg by mouth once daily. hydrOXYzine HCl (ATARAX) 25 mg tablet hydroxyzine HCl 25 mg tablet take 1 tablet by mouth once daily as directed ondansetron (ZOFRAN) 4 mg tablet ondansetron HCl 4 mg tablet take 1 to 2 tablets by mouth every 8 hours if needed for nausea ondansetron (ZOFRAN) 4 mg tablet take 1 to 2 tablets by mouth every 8 hours if needed for nausea penicillin V potassium (V-CILLIN, VEETIDS) 500 mg tablet penicillin V potassium 500 mg tablet take 1 tablet by mouth four times a day until finished penicillin V potassium (V-CILLIN, VEETIDS) 500 mg tablet take 1 tablet by mouth four times a day until finished predniSONE (DELTASONE) 50 mg prednisone 50 mg tablet take 1 tablet by mouth every morning with food for 5 days predniSONE (DELTASONE) 50 mg take 1 tablet by mouth every morning with food for 5 days docusate sodium (COLACE) 100 mg capsule Take 1 capsule by mouth twice daily as needed for constipation. ondansetron (ZOFRAN) 4 mg tablet Take 1 tablet by mouth every 8 hours as needed for nausea/vomiting. Methenamine Hippurate (HIPREX) 1 gram tablet Take 1 g by mouth twice daily. progesterone micronized (PROMETRIUM) 200 mg capsule Take 200 mg by mouth at bedtime as needed. Physical Exam Ht 170.2 cm (5' 7) Wt 57.2 kg (126 lb) BMI 19.73 kg/m? 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 Normal [facility] ANES POSTPROC EVALon 021 ANES POSTPROC EVAL HNO ID: [id number] Author: Jose Beckman MD Service: Anesthesiology Author Type: Physician Type: Anesthesia Postprocedure Evaluation Filed: 04/26/2021 7:18 PM Note Text: POST ANESTHESIA EVALUATION NOTE : 1945 Procedure Summary Date: 04/25/21 Room / Location: [place] OR / [place] Anesthesia Start: 1303 Anesthesia Stop: 1631 Procedures: XI ROBOTIC LAPAROSCOPIC COLPOPEXY (N/A ) ANTERIOR REPAIR (N/A Vagina ) CYSTOSCOPY (N/A Bladder) Diagnosis: Vaginal vault prolapse Midline cystocele (Vaginal vault prolapse [N81.9]) (Midline cystocele [N81.11]) Surgeons: Richard Cam MD Responsible Provider: Jose Beckman MD Anesthesia Type: general ASA Status: 2 Anesthesia Type: general Last vitals Vitals Value Taken Time BP 139/74 04/25/212014 Temp 36.3 ?C (97.3 ?F) 04/25/211919 HR SpO2 77 04/25/212029 Resp 11 04/25/212029 SpO2 100 % 04/25/212029 Post Anesthesia Patient Status Other Remarks: Per review of flowsheets, pt apprently had an uneventful recovery course in PACU.. Anesthesia Observations No Documentation SIGNATURE: Jose Beckman MD PATIENT NAME: Matt Pettit DATE: April 26, 2021 TIME: 7:17 PM CSN: [id number] [facility] ANES PRE-OPon 04-25-2021 ANES PRE-OP HNO ID: [id number] Author: Nabil Pavon MD Service: Anesthesiology Author Type: Physician Type: Anesthesia Preprocedure Evaluation Filed: 04/25/2021 11:06 AM Note Text: ANESTHESIOLOGY DAY OF SURGERY NOTE : 1945 Procedure Information Date/Time: 04/25/21 1200 Procedures: XI ROBOTIC LAPAROSCOPIC COLPOPEXY (N/A ) ANTERIOR REPAIR (N/A Vagina ) CYSTOSCOPY (N/A Bladder) Location: [place] OR OR Surgeons: Richard Cam MD Estimated body mass index is 20.2 kg/m? as calculated from the following: Height as of 10/17/20: 170.2 cm (5' 7). Weight as of 10/17/20: 58.5 kg (129 lb). Most recent hematocrit and potassium results: No results found for this basename: HCT,HEMATOCRIT,K,POTA SSIUM Relevant Problems No relevant active problems I - PHYSICAL EVALUATION AIRWAY Patient intubated: No. Tracheostomy tube not present Mallampati: II. TM distance: >3 FB. Neck ROM: full ROM without neurological symptoms. Mouth opening: adequate. Short neck: no. Thick neck: no DENTAL Dental findings: chipped. Additional exam findings: no II - ANESTHESIA PLAN ASA Score: 2 Anesthetic Plan: general Airway type: ETT NPO Status: adequate Monitoring plan: standard ASA. Postoperative analgesic plan: parenteral or oral opioids and multimodal analgesia. Anesthetic Risks, Benefits, Alternatives, Personnel Discussed. Consent obtained from: patient.Patient / Surrogate agrees to blood products: Yes Significant changes in the patient condition since the History and Physical, not otherwise documented in primary service progress note: no. No vitals data found for the desired time range. No current facility-administered medications on file as of 04/25/2021. Outpatient Medications as of 04/25/2021 Medication Sig - atenolol (TENORMIN) 25 mg tablet Take 25 mg by mouth daily at bedtime. - lisinopril (ZESTRIL, PRINIVIL) 10 mg tablet 20 mg. - Methenamine Hippurate (HIPREX) 1 gram tablet Take 1 g by mouth twice daily. - progesterone micronized (PROMETRIUM) 200 mg capsule Take 200 mg by mouth at bedtime as needed. - Coenzyme Q10 150 mg cap Take by mouth. - estradiol (ESTRACE) 0.01 % (0.1 mg/gram) vaginal cream Estradiol (Estrace) 0.01 % (0.1 mg/gram) cream Active 1 GM VAGINAL TWICE A WEEK January 24, 2019 9:04am - ascorbic acid, vitamin C, 500 mg cap 500 mg. - VITAMIN D3-VITAMIN K2, MK4, ORAL Vitamin D3/Vitamin K2 (Mk4) Active 1 EA DAILY March 08, 2019 10:03am - Magnesium Oxide 250 mg magnesium tab 250 mg. - Dayton-3 1,050 mg, Fish Oil, 1,050-1,200 mg cap Take by mouth once daily. I have interviewed and examined the patient. I have reviewed the medical record and/or the pre-anesthesia evaluation, pertinent labs, and test results. This contains updated information obtained within 48 hours of Surgery/Procedure. SIGNATURE: Nabil Pavon MD PATIENT NAME: Matt Pettit DATE: April 25, 2021 TIME: 10:39 AM CSN: [id number] Normal [facility] HISTORY PHYSICALon HISTORY PHYSICAL HNO ID: [id number] Author: Jailyn Larry APRN.CNP Service: Anesthesiology Author Type: Nurse Practitioner Type: HANDP Filed: 04/25/2021 11:42 AM Note Text: HISTORY AND PHYSICAL EXAMINATION SERVICE DATE: 04/25/2021 SERVICE TIME: 11:17 AM PRIMARY CARE PHYSICIAN: Keshawn Arora MD Matt Pettit 1945 [id number] REASON FOR VISIT: Matt Pettit is a 75 year old female who is scheduled for....... Procedure(s): XI ROBOTIC LAPAROSCOPIC COLPOPEXY (N/A) ANTERIOR REPAIR (N/A) CYSTOSCOPY (N/A) at the request of Dr. Richard Cam for Pre Procedure history and physical The patient has the following: There is no problem list on file for this patient. Subjective CHIEF COMPLAINT: BLADDER PROLAPSE HPI: Matt Pettit is a 75 year old female that presents with above. She had a total hysterectomy 2018. She states after the surgery she started to have issues with bladder prolapse and difficulty urinating. She complains of having to push the prolapse up in order to urinate. She denies urine frequency, urgency and incontinence. Denies hematuria. She states the last year her prolapse has got worse. She continues to use a pessary. After discussion with the surgeon patient has agreed to surgical intervention. PAST MEDICAL HISTORY Diagnosis Date - COVID-19 01/2021. - HTN (hypertension) - MVP (mitral valve prolapse) PAST SURGICAL HISTORY Procedure Laterality Date - LIGATE FALLOPIAN TUBE 1978 - PAST SURGICAL HISTORY OF 1998 LEFT SHOULDER SURGERY - PAST SURGICAL HISTORY OF 2020 SURGERY WHEN A PRIOR PESSARY CAUSED EROSION. - REMOVE TONSILS/ADENOIDS,<12 Y/O - REMV CATARACT EXTRACAP,INSERT LENS - TOTAL ABDOM HYSTERECTOMY 2019 No family history on file. SOCIAL HISTORY: Social History Tobacco Use - Smoking status: Never Smoker - Smokeless tobacco: Never Used Vaping Use - Vaping Use: Never used Substance Use Topics - Alcohol use: Not Currently - Drug use: Never Prior to Admission medications as of 04/25/21 1116 Medication Sig Last Dose Taking atenolol (TENORMIN) 25 mg tablet Take 25 mg by mouth daily at bedtime. 04/24/2021 at Unknown time Yes lisinopril (ZESTRIL, PRINIVIL) 10 mg tablet 20 mg. 04/25/2021 at Unknown time Yes Coenzyme Q10 150 mg cap Take by mouth. 04/24/2021 at Unknown time Yes VITAMIN D3-VITAMIN K2, MK4, ORAL Vitamin D3/Vitamin K2 (Mk4) Active 1 EA DAILY March 08, 2019 10:03am Past Week at Unknown time Yes Magnesium Oxide 250 mg magnesium tab 250 mg. Past Week at Unknown time Yes Dayton-3 1,050 mg, Fish Oil, 1,050-1,200 mg cap Take by mouth once daily. Past Week at Unknown time Yes albuterol (PROVENTIL) 2.5 mg /3 mL (0.083 %) nebulizer solution albuterol sulfate 2.5 mg/3 mL (0.083 %) solution for nebulization inhale 1 vial in nebulizer every 4 hours if needed albuterol (PROVENTIL) 2.5 mg /3 mL (0.083 %) nebulizer solution inhale 1 vial in nebulizer every 4 hours if needed azithromycin (ZITHROMAX) 250 mg tablet azithromycin 250 mg tablet take 2 tablets by mouth on day 1 then take 1 tablet once daily for 4 days azithromycin (ZITHROMAX) 250 mg tablet take 2 tablets by mouth on day 1 then take 1 tablet once daily for 4 days budesonide (PULMICORT) 0.5 mg/2 mL nebulizer solution budesonide 0.5 mg/2 mL suspension for nebulization inhale 1 vial in nebulizer twice a day for 10 days budesonide (PULMICORT) 0.5 mg/2 mL nebulizer solution inhale 1 vial in nebulizer twice a day for 10 days hydrocortisone (PROCTO-MED HC) 2.5 % rectal cream Procto-Med HC 2.5 % topical cream perineal applicator apply thin layer to affected area 2 to four times a day hydrOXYzine HCl (ATARAX) 25 mg tablet Take 25 mg by mouth once daily. hydrOXYzine HCl (ATARAX) 25 mg tablet hydroxyzine HCl 25 mg tablet take 1 tablet by mouth once daily as directed ondansetron (ZOFRAN) 4 mg tablet ondansetron HCl 4 mg tablet take 1 to 2 tablets by mouth every 8 hours if needed for nausea ondansetron (ZOFRAN) 4 mg tablet take 1 to 2 tablets by mouth every 8 hours if needed for nausea penicillin V potassium (V-CILLIN, VEETIDS) 500 mg tablet penicillin V potassium 500 mg tablet take 1 tablet by mouth four times a day until finished penicillin V potassium (V-CILLIN, VEETIDS) 500 mg tablet take 1 tablet by mouth four times a day until finished predniSONE (DELTASONE) 50 mg prednisone 50 mg tablet take 1 tablet by mouth every morning with food for 5 days predniSONE (DELTASONE) 50 mg take 1 tablet by mouth every morning with food for 5 days Methenamine Hippurate (HIPREX) 1 gram tablet Take 1 g by mouth twice daily. progesterone micronized (PROMETRIUM) 200 mg capsule Take 200 mg by mouth at bedtime as needed. estradiol (ESTRACE) 0.01 % (0.1 mg/gram) vaginal cream Estradiol (Estrace) 0.01 % (0.1 mg/gram) cream Active 1 GM VAGINAL TWICE A WEEK January 24, 2019 9:04am ascorbic acid, vitamin C, 500 mg cap 500 mg. No medication comments found. ALLERGIES All (more content not included)... Normal [facility] NURSING PROGon 04-25-2021 NURSING PROG HNO ID: [id number] Author: Sania Macias, GARY Service: Nursing Author Type: Registered Nurse Type: Nursing Progress Note Filed: 04/25/2021 8:03 PM Note Text: Nursing Progress Note Patient Name: Matt Pettit Patient Location: [place] Patient complaining of intermittent shaking. Dr Garcia to order demerol. This note was completed by: Sania Macias [facility] NURSING PROG HNO ID: [id number] Author: Sania Macias RN Service: Nursing Author Type: Registered Nurse Type: Nursing Progress Note Filed: 04/25/2021 8:06 PM Note Text: Nursing Progress Note Patient Name: Matt Pettit Patient Location[place] Pt complaining of persistent nausea with dry heaving. Pt also complaining of dizziness when sitting up. Order for compazine obtained and given. Patient drowsy but arousable. This note was completed by: Sania Macias [facility] OPERATIVE NOon 04-25-2021 OPERATIVE NO HNO ID: [id number] Author: Richard Cam MD Service: Urology Author Type: Physician Type: Operative Report Filed: 04/25/2021 4:32 PM Note Text: UROLOGY SERVICE OPERATIVE NOTE LOG ID: [id number] Surgery/Procedure Date: 04/25/2021 Incision/Procedure Start Time: 1:33 PM Incision Close/Procedure End Time: 4:16 PM Patient Age: [age] year old Surgeon(s)/Procedural ist(s) and Underwriting Intern(s): Surgeon(s) and Role: * Richard Cam MD - Primary * Gary Beasley MD - Resident - Assisting Toggler: Ish Kaba SA Anesthesia: General Preop Diagnosis: Pre-Op Diagnosis Codes: * Vaginal vault prolapse [N81.9] * Midline cystocele [N81.11] Postop Diagnosis: Same as preoperative diagnosis Procedure: Cystoscopy Anterior repair Robotic assisted laparoscopic sacrocolpopexy FLUIDS See Anesthesia History Patient is a 75-year-old female presents with complete vaginal prolapse and a cystocele. Risk benefits and alternatives were discussed and we decided to proceed with robotic assisted laparoscopic sacrocolpopexy and anterior repair. Risk and benefits reviewed including infection bleeding use of mesh mesh erosion dyspareunia possible need for repeat procedures new urinary incontinence injury to bowel or bladder. The FDA data regarding use of mesh was discussed with the patient and she was comfortable with proceeding. Procedure Patient was taken to the operating room placed under general esthesia in the dorsolithotomy position prepped and draped in normal sterile fashion. SCDs were on and functioning and a timeout was performed. Attention was turned vaginally. Velázquez catheter was inserted. 1% lidocaine with epinephrine was injected in the anterior vaginal wall. Midline vaginal incision was made lateral dissection was performed pubocervical fascia was identified and anterior repair was performed by reapproximating pubocervical fascia with interrupted 0 PDS. Anterior vaginal wall was trimmed and closed with a running locking 2-0 Vicryl. All gloves were changed and attention was turned to the abdomen. A supraumbilical skin incision was made. The Veress needle was then placed it was aspirated and there was nothing aspirated. And water drop test was performed. The abdomen was then insufflated. Once sufficiently insufflated the robotic 8 mm trocar was placed. The camera was inserted and the abdomen was inspected. There is no evidence of abdominal injury. The remainder of the ports were then placed under direct vision robotic right-sided port 2 on the left and a left upper quadrant air seal port. The patient was placed into Trendelenburg and the robot was docked. Attention was turned to the vaginal cuff line. The anterior and posterior peritoneal flaps were developed off of the cuff line the Coloplast colpopexy mesh was then cut the length on the Y side and attached both anteriorly and posteriorly with interrupted 2-0 Ethibond. The sacral promontory was identified posterior peritoneum overlying the promontory was opened the anterior longitudinal ligament was identified in the space and ligament was found with no evidence of neurologic or vascular structures and 2 sutures of 0 Ethibond were placed. Posterior peritoneal tunnel was developed posterior aspect of the tunnel was attached to the posterior flap with interrupted 3-0 Vicryl. The mesh was brought through the tunnel and attached with the previously placed Ethibond sutures at a location to provide support without overcorrection. Posterior peritoneum was then closed over the mesh in its entirety with 2-0 Vicryl. All counts were correct. There is no evidence of bowel or vascular injury. All instruments were removed and the robot was undocked. Incisions were all closed with 4-0 Vicryl skin glue was applied. Cystoscopy was performed there was no evidence of tumor calculus mucosal abdominal or bladder injury. Both ureteral orifices were identified effluxing indigo stained urine. Her Velázquez catheter was replaced she was awake and returned recovery in good condition. I was present for the entire procedure and had the assistance of a resident. SIGNATURE: Richard Cam MD PATIENT NAME: Matt Pettit DATE: April 25, 2021 TIME: 4:26 PM PAGER/CONTACT #: [facility] Vital Signs Date Time Vital Sign Value Performing Clinician Faci lity 10-18-2024 09:02-0400 Diastolic blood pressure 78 mm[Hg] Dr. Keshawn Arora MD Work Phone: [facility] 10-18-2024 09:02-0400 Heart rate 57 /min Dr. Keshawn Arora MD Work Phone: [phone] [place] [address] 10-18-2024 09:02-0400 Respiratory rate 18 /min Dr. Keshawn Arora MD Work Phone: [facility] 10-18-2024 09:02-0400 SaO2% (BldA) [Mass fraction] 96 % Dr. Keshawn Arora MD Work Phone: [facility] 10-18-2024 09:02-0400 Systolic blood pressure 185 mm[Hg] Dr. Keshawn Arora MD Work Phone: [facility] 09-13-2024 13:12-0400 Body height 170.[address] Keshawn Arora MD Work Phone: [facility] 09-13-2024 13:12-0400 Body mass index (BMI) [Ratio] 19.9 kg/m2 Dr. Keshawn Arora MD Work Phone: [facility] 09-13-2024 13:12-0400 Body temperature 97.6 [degF] Dr. Keshawn Arora MD Work Phone: [facility] 09-13-2024 13:12-0400 Body weight 57.[address] Keshawn Arora MD Work Phone: [facility] 09-13-2024 13:12-0400 Diastolic blood pressure 80 mm[Hg] Dr. Keshawn Arora MD Work Phone: [facility] 09-13-2024 13:12-0400 Heart rate 65 /min Dr. Keshawn Arora MD Work Phone: [facility] 09-13-2024 13:12-0400 Respiratory rate 16 /min Dr. Keshawn Arora MD Work Phone: [facility] 09-13-2024 13:12-0400 SaO2% (BldA) [Mass fraction] 97 % Dr. Keshawn Arora MD Work Phone: [facility] 09-13-2024 13:12-0400 Systolic blood pressure 182 mm[Hg] Dr. Keshawn Arora MD Work Phone: [facility] 11-20-2021 10:12-0400 Body height 170.2 cm Richard Cam MD Work Phone: [facility] 11-20-2021 10:12-0400 Body weight 58.97 kg Richard Cam MD Work Phone: [facility] Encounters Encounter Date Encounter Type Care Provider Facility Start: 07-19-2025 ambulatory [facility]: [facility] Start: 12-29-2024 ambulatory [facility]: [facility] Start: 12-08-2024 End: 12-08-2024 ambulatory [facility]FE[facility] PREVENTION[facility] Start: 10-18-2024 End: 10-18-[address] Keshawn Arora MD Work Phone: [facility] Work Phone: Start: 10-18-2024 End: 10-18-[address] Derian Guerra MD -Laboratory Specimen Work Phone: Start: 10-18-2024 End: 10-18-[address] Derian Guerra MD -[facility] Work Phone: Start: 10-18-2024 End: 10-18-[address] Keshawn Arora MD Work Phone: [facility] Work Phone: Start: 10-18-2024 End: 10-18-2024 ambulatory Derian Guerra Facility:[facility] Start: 09-13-2024 End: 09-13-[address] Derian Guerra MD -Laboratory Specimen Work Phone: Start: 09-13-2024 End: 09-13-[address] Derian Guerra MD -[facility] Work Phone: Start: 09-13-2024 End: 09-13-2024 ambulatory [facility] Start: 09-13-2024 End: 09-13-2024 ambulatory [facility] Facility:[facility] Start: 08-11-2024 End: 08-11-2024 ambulatory [facility] Start: 06-22-2023 End: 06-22-2023 ambulatory [facility] Work Phone: Start: 06-22-2023 End: 06-22-2023 Discharged Recurring [facility]-Physical Therapy Work Phone: Start: 05-06-2023 End: 05-11-2023 ambulatory NOT RECORDED PHYSICIAN Facility:A Start: 05-01-2023 End: 05-01-2023 ambulatory [facility] Work Phone: Start: 05-01-2023 End: 05-01-2023 Discharged Recurring [facility] Work Phone: Start: 11-20-2021 End: 11-20-2021 Patient encounter procedure Richard Cam MD Work Phone: Urology Comment on above: Urethrocele (Primary Dx); Midline cystocele Procedures Date Procedure Procedure Detail Performing Clinician Start: 11-20-2021 Urnls dip stick/tabl et rgnt auto w/o microscopy Richard Cam MD Work Phone: Plan of Treatment Date Care Activity Detail Author Start: 09-13-2024 Patient referral [facility] Work Phone: Start: 01-16-2022 Influenza vaccination INFLUENZA (#1) [facility] Start: 05-18-2021 ADVANCE DIRECTIVE DISCUSSION ADVANCE DIRECTIVE DISCUSSION [facility] Start: 2010 BONE DENSITY BONE DENSITY [facility] Start: 2010 PNEUMOCOCCAL: 65+ (1 - PCV) PNEUMOCOCCAL: 65+ (1 - PCV) [facility] Start: 08-21-1995 SHINGRIX VACCINE (1 of 2) SHINGRIX VACCINE (1 of 2) [facility] Start: 1990 DIABETES SCREEN DIABETES SCREEN [facility] Start: 1964 Urine microalbumin profile DTAP,TDAP,TD (1 - Tdap) [facility] Start: 08-21-1963 HEPATITIS C SCREENING HEPATITIS C SCREENING [facility] Start: 1957 Adult depression screening assessment DEPRESSION SCREENING [facility] Start: 02-19-1946 COVID-19 VACCINE (#1) COVID-19 VACCINE (#1) [facility] Patient referral [facility] Work Phone: Payers Date Payer Category Payer Self-pay [id number] 2024 Medicare [id number] 2024 Unknown [id number] 2023 Medicare [id number] 2010 Medicare MEDICARE MEDICAR E A AND B [id number] 2010-Present [phone] [place] [address] Medicare [id number] 2010 Unknown HOSPITAL/MEDICAL GENERIC MEDICAL GENERIC [id number] 2010-Present [phone] [place] [address] Indemnity [id number] 1945 Unknown [id number] 1945 Unknown [id number] 1945 Unknown [id number] Unknown COMMERCIAL OTHER [id number] Unknown [id number] Unknown [id number] Unknown [id number] Unknown [id number] Unknown [id number] Unknown [id number] Social History Date Type Detail Facility Start: 09-25-2020 End: 10-17-2020 Tobacco smoking status NHIS Never smoked tobacco [facility] Start: 10-17-2020 Tobacco use and exposure Smokeless tobacco non-user [facility] Start: 11-20-2021 Alcohol intake Ex-drinker (finding) [facility] Start: 1945 Sex Assigned At Female C [facility] Start: 11-10-2021 End: 11-20-2021 Exposure to SARS-CoV-2 (event) Not sure [facility] Start: 09-25-2020 End: 09-25-2020 Tobacco smoking status NHIS Unknown if ever smoked [facility] Start: 09-25-2020 Non-smoker [facility] Medical Equipment Procedure Code Equipment Code Equipment Origin al Text Equipment Identifier Dates Laparoscopy, diagnostic SEALANT,FLOSEAL HEMOSTATIC 5ML FDA Start: 03-16-2019 Laparoscopy, diagnostic SEALANT,FLOSEAL HEMOSTATIC 5ML FDA Start: 03-16-2019 Laparoscopy, diagnostic SEALANT,FLOSEAL HEMOSTATIC 5ML FDA Start: 03-16-2019 Laparoscopy, diagnostic SEALANT,FLOSEAL HEMOSTATIC 5ML FDA Start: 03-16-2019 Mesh Restorelle Smartmesh Y Contour 24x3cm Surgical Flat Graft - [id number] Start: 04-25-2021 MESH, AXIS DERMIS FDA Start: 03-15-2019 SLING, ALTIS VAGINAL FDA Start: 03-15-2019 MESH, AXIS DERMIS FDA Start: 03-15-2019 SLING, ALTIS VAGINAL FDA Start: 03-15-2019 MESH, AXIS DERMIS FDA Start: 03-15-2019 SLING, ALTIS VAGINAL FDA Start: 03-15-2019 MESH, AXIS DERMIS FDA Start: 03-15-2019 SLING, ALTIS VAGINAL FDA Start: 03-15-2019 Evaluation note 09-13-2024 Note Date & Type Note Facility 09-13-2024 Evaluation note Diagnosis Onset Date Resolution Multiple thyroid nodules chronic September 13, 2024 12:51pm Laryngopharyngeal reflux (LPR) acute October 18, 2024 8:52am Multiple thyroid nodules chronic October 18, 2024 8:52am [facility] Work Phone: Evaluation note 09-13-2024 Note Date & Type Note Facility 09-13-2024 Evaluation note Diagnosis Onset Date Resolution Multiple thyroid nodules chronic September 13, 2024 12:51pm [facility] Work Phone: Discharge summary 05-01-2023 Note Date & Type Note Facility 05-01-2023 Discharge summary Note Date/Time May 01, 2023 1:53pm [facility] Physical Therapy [facility] [address] [place] [address]. [address] [place] [address] / REHABILITATION SERVICES DISCHARGE SUMMARY MR#: [id number] Acct: [id number] Name: MATT PETTIT Rep #: [id number] : 1945 77 From: Stella Wren PT, Cert. MDT Referring Dr.: Dr. Keila Esposito MD Status: REG RCR Insurance: MEDICARE PART A B [employer] [facility] Discharge Summary D/C summary: It has been my pleasure to treat MATT PETTIT referred by Dr. 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 Discharge Date: Please see the following information for a summary of their discharge status. Subjective Subjective: IT HAS BEEN SO DIFFERENT AND SO WONDERFUL AND I APPRECIATE IT SO MUCH. IT IS SUCH A RELIEF. PATIENT REPORTS SHE REALLY ISN'T HAVING TROUBLE INITIATING URINATION ANYMORE EVEN IN PUBLIC. PATIENT REPORTS SHE HAS HAD VERY LITTLE TROUBLE URINATING AND FEELS SHE CAN CONTINUE THE EX'S ON HER OWN NOW. PATIENT REPORTS THAT EVEN THOUGH THIS WEEK HASBEEN VERY STRESS HER SYMPTOMS HAVE BEEN GOOD. PATIENT REPORTS VERY OCCASSIONAL UI WITH COUGHING AND SNEEZING AND MILD INTERMITTENT BURNING WITH URINATION BUT SO MUCH BETTER THAN WHAT IT WAS. Pain GENITAL AREA: Pain Intensity (Out of 10): 1 L LBP: Pain Intensity (Out of 10): 0 Overall Improvement % Improvement: 98 Objective Objective/Function: PATIENT WAS SEEN TODAY FOR RE-ASSESSMENT OF PROGRESS TOWARD THE SET PT GOALS AND THE NEED FOR FURTHER PHYSICAL THERAPY VS READINESS FOR DISCHARGE. PHYSICAL THERAPY HAS INCLUDED MANUAL PELVIC FLOOR THERAPY FOR TRIGGER POINT RELEASE. INSTRUCTION IN PELVIC FLOOR RELAXATION. CORE AND HIP STRENGTHENING. SARAN LE AND PF STRETCHING. AND HEP INSTRUCTION. PATIENT HAS ALSO BEEN INSTRUCTED IN HEALTHY BLADDER HABITS, PROPER POSTURE CONTROL, APPROPRIATE INTRA-ABDOMINAL PRESSURE MANAGEMENT AND PROPER BODY MECHANICS FOR HELPING CARE FOR . HOME INSTRUCTIONS WERE REVIEWED TODAY AND PATIENTS QUESTIONS ANSWERED. ALL GOALS HAVE BEEN MET AND PATIENT IS APPROPRIATE FOR AND AGREEABLE TO DISCHARGE. FUNCTIONAL SCREEN: Incontinence Impact Questionnaire Score: 0 Urogenital Distress Inventory Score: 2 (8 AT EVAL) SHE PLANS TO FOLLOW UP WITH DR. ESPOSITO EARLY NEXT MONTH. Goals Goal 1:: PATIENT WILL BE ABLE TO INITATE URINATION WITHOUT DIFFICULTY. Goal Progress: Goal Met Goal 2:: PATIENT WILL BE INDEP WITH A HEP FOR CONTINUED IMPROVEMENT ONCE FORMAL PHYSICAL THERAPY CONCLUDES. Goal Progress: Goal Met Plan Plan: D/C TO INDEP HOME EX PROGRAM. PATIENT AGREEABLE. D/C Information d/c sentence: If there are questions or concerns regarding this patient's physical therapy, please feel free to call me at [phone]. Thank you for the referral of thispatient. Sincerely, Stella Wren, PT, Cert MDT Balance/Gait/Functional tests Improvement % Improvement: 98 <Electronically signed by Stella Wren PT, Cert. MDT> 05/01/23 1353 CC: Dr. Keshawn Arora MD; Dr. Keila Esposito MD ~ NIKIA Signed [facility] Work Phone: Progress note 11-20-2021 Note Date & Type Note Facility 11-20-2021 Note HNO ID: [id number] Author: Richard Cam MD Service: ? Author Type: Physician Type: Progress Notes Filed: 11/20/2021 11:20 AM Note Text: ESTABLISHED PATIENT VISIT HPI Matt Pettit is a 76 year old female who presents post RALSCP. Overall she has been doing well. Has noted some anterior vaginal wall pressure. No hematuria No JERED On examination Graham is well supported. Anterior wall urethrocele. We discussed a possible urethrocele/cystocele repair. Her questions were answered She is going to decide how bothersome this is and if she would like to proceed. GLUCOSE UA (POCT) Negative 11/20/2021 BILIRUBIN UA (POCT) Negative 11/20/2021 KETONE UA (POCT) Negative 11/20/2021 SPECIFIC GRAVITY UA (POCT) 1.015 11/20/2021 HEMOGLOBIN/BLOOD UA (POCT) Trace-intact 11/20/2021 PH UA (POCT) 7.0 11/20/2021 PROTEIN UA (POCT) Negative 11/20/2021 UROBILINOGEN UA (POCT) 0.2 11/20/2021 NITRITE UA (POCT) Negative 11/20/2021 LEUKOCYTES UA (POCT) Negative 11/20/2021 COLOR UA (POCT) Yellow 11/20/2021 CLARITY UA (POCT) Clear 11/20/2021 REVIEW OF SYSTEMS GENERAL:No weight loss, malaise or fevers, No weight loss, malaise or fevers., SEE HPI GENITOURINARY: See HPI CONSTITUTIONALl: No recent fever or weight loss ALLERGIES Allergen Reactions - Morphine Vomiting - Metoprolol Other: See Comments Causes palpitations HISTORIES PAST MEDICAL HISTORY Diagnosis Date - COVID-01/2021. - HTN (hypertension) - MVP (mitral valve prolapse) No family history on file. Social History Tobacco Use - Smoking status: Never Smoker - Smokeless tobacco: Never Used Vaping Use - Vaping Use: Never used Substance Use Topics - Alcohol use: Not Currently - Drug use: Never MEDICATIONS: atenolol (TENORMIN) 25 mg tablet Take 25 mg by mouth daily at bedtime. lisinopril (ZESTRIL, PRINIVIL) 10 mg tablet 20 mg. Coenzyme Q10 150 mg cap Take by mouth. estradiol (ESTRACE) 0.01 % (0.1 mg/gram) vaginal cream Estradiol (Estrace) 0.01 % (0.1 mg/gram) cream Active 1 GM VAGINAL TWICE A WEEK January 24, 2019 9:04am ascorbic acid, vitamin C, 500 mg cap 500 mg. VITAMIN D3-VITAMIN K2, MK4, ORAL Vitamin D3/Vitamin K2 (Mk4) Active 1 EA DAILY March 08, 2019 10:03am Magnesium Oxide 250 mg magnesium tab 250 mg. Dayton-3 1,050 mg, Fish Oil, 1,050-1,200 mg cap Take by mouth once daily. albuterol (PROVENTIL) 2.5 mg /3 mL (0.083 %) nebulizer solution albuterol sulfate 2.5 mg/3 mL (0.083 %) solution for nebulization inhale 1 vial in nebulizer every 4 hours if needed albuterol (PROVENTIL) 2.5 mg /3 mL (0.083 %) nebulizer solution inhale 1 vial in nebulizer every 4 hours if needed azithromycin (ZITHROMAX) 250 mg tablet azithromycin 250 mg tablet take 2 tablets by mouth on day 1 then take 1 tablet once daily for 4 days azithromycin (ZITHROMAX) 250 mg tablet take 2 tablets by mouth on day 1 then take 1 tablet once daily for 4 days budesonide (PULMICORT) 0.5 mg/2 mL nebulizer solution budesonide 0.5 mg/2 mL suspension for nebulization inhale 1 vial in nebulizer twice a day for 10 days budesonide (PULMICORT) 0.5 mg/2 mL nebulizer solution inhale 1 vial in nebulizer twice a day for 10 days hydrocortisone (PROCTO-MED HC) 2.5 % rectal cream Procto-Med HC 2.5 % topical cream perineal applicator apply thin layer to affected area 2 to four times a day hydrOXYzine HCl (ATARAX) 25 mg tablet Take 25 mg by mouth once daily. hydrOXYzine HCl (ATARAX) 25 mg tablet hydroxyzine HCl 25 mg tablet take 1 tablet by mouth once daily as directed ondansetron (ZOFRAN) 4 mg tablet ondansetron HCl 4 mg tablet take 1 to 2 tablets by mouth every 8 hours if needed for nausea ondansetron (ZOFRAN) 4 mg tablet take 1 to 2 tablets by mouth every 8 hours if needed for nausea penicillin V potassium (V-CILLIN, VEETIDS) 500 mg tablet penicillin V potassium 500 mg tablet take 1 tablet by mouth four times a day until finished penicillin V potassium (V-CILLIN, VEETIDS) 500 mg tablet take 1 tablet by mouth four times a day until finished predniSONE (DELTASONE) 50 mg prednisone 50 mg tablet take 1 tablet by mouth every morning with food for 5 days predniSONE (DELTASONE) 50 mg take 1 tablet by mouth every morning with food for 5 days docusate sodium (COLACE) 100 mg capsule Take 1 capsule by mouth twice daily as needed for constipation. ondansetron (ZOFRAN) 4 mg tablet Take 1 tablet by mouth every 8 hours as needed for nausea/vomiting. Methenamine Hippurate (HIPREX) 1 gram tablet Take 1 g by mouth twice daily. progesterone micronized (PROMETRIUM) 200 mg capsule Take 200 mg by mouth at bedtime as needed. Physical Exam Ht 170.2 cm (5' 7) Wt 59 kg (130 lb) BMI 20.36 kg/m? ASSESSMENT/PLAN: (N81.0) Urethrocele (primary encounter diagnosis) (N81.11) Midline cystocele Possible anterior/urethrocele repair. [facility] History of Present illness Narrative 11-20-2021 Richard Cam MD - 11/20/2021 10:55 AM EDT Note Date & Type Note Facility 11-20-2021 History of Presen t illness Narrative ESTABLISHED PATIENT VISIT HPI Matt Pettit is a 76 year old female who presents post RALSCP. Overall she has been doing well. Has noted some anterior vaginal wall pressure. No hematuria No JERED On examination Graham is well supported. Anterior wall urethrocele. We discussed a possible urethrocele/cystocele repair. Her questions were answered She is going to decide how bothersome this is and if she would like to proceed. GLUCOSE UA (POCT) Negative 11/20/2021 BILIRUBIN UA (POCT) Negative 11/20/2021 KETONE UA (POCT) Negative 11/20/2021 SPECIFIC GRAVITY UA (POCT) 1.015 11/20/2021 HEMOGLOBIN/BLOOD UA (POCT) Trace-intact 11/20/2021 PH UA (POCT) 7.0 11/20/2021 PROTEIN UA (POCT) Negative 11/20/2021 UROBILINOGEN UA (POCT) 0.2 11/20/2021 NITRITE UA (POCT) Negative 11/20/2021 LEUKOCYTES UA (POCT) Negative 11/20/2021 COLOR UA (POCT) Yellow 11/20/2021 CLARITY UA (POCT) Clear 11/20/2021 REVIEW OF SYSTEMS GENERAL:No weight loss, malaise or fevers, No weight loss, malaise or fevers., SEE HPI GENITOURINARY: See HPI CONSTITUTIONALl: No recent fever or weight loss ALLERGIES Allergen Reactions Morphine Vomiting Metoprolol Other: See Comments Causes palpitations HISTORIES PAST MEDICAL HISTORY Diagnosis Date COV01/2021. HTN (hypertension) MVP (mitral valve prolapse) No family history on file. Social History Tobacco Use Smoking status: Never Smoker Smokeless tobacco: Never Used Vaping Use Vaping Use: Never used Substance Use Topics Alcohol use: Not Currently Drug use: Never MEDICATIONS: atenolol (TENORMIN) 25 mg tablet Take 25 mg by mouth daily at bedtime. lisinopril (ZESTRIL, PRINIVIL) 10 mg tablet 20 mg. Coenzyme Q10 150 mg cap Take by mouth. estradiol (ESTRACE) 0.01 % (0.1 mg/gram) vaginal cream Estradiol (Estrace) 0.01 % (0.1 mg/gram) cream Active 1 GM VAGINAL TWICE A WEEK January 24, 2019 9:04am ascorbic acid, vitamin C, 500 mg cap 500 mg. VITAMIN D3-VITAMIN K2, MK4, ORAL Vitamin D3/Vitamin K2 (Mk4) Active 1 EA DAILY March 08, 2019 10:03am Magnesium Oxide 250 mg magnesium tab 250 mg. Dayton-3 1,050 mg, Fish Oil, 1,050-1,200 mg cap Take by mouth once daily. albuterol (PROVENTIL) 2.5 mg /3 mL (0.083 %) nebulizer solution albuterol sulfate 2.5 mg/3 mL (0.083 %) solution for nebulization inhale 1 vial in nebulizer every 4 hours if needed albuterol (PROVENTIL) 2.5 mg /3 mL (0.083 %) nebulizer solution inhale 1 vial in nebulizer every 4 hours if needed azithromycin (ZITHROMAX) 250 mg tablet azithromycin 250 mg tablet take 2 tablets by mouth on day 1 then take 1 tablet once daily for 4 days azithromycin (ZITHROMAX) 250 mg tablet take 2 tablets by mouth on day 1 then take 1 tablet once daily for 4 days budesonide (PULMICORT) 0.5 mg/2 mL nebulizer solution budesonide 0.5 mg/2 mL suspension for nebulization inhale 1 vial in nebulizer twice a day for 10 days budesonide (PULMICORT) 0.5 mg/2 mL nebulizer solution inhale 1 vial in nebulizer twice a day for 10 days hydrocortisone (PROCTO-MED HC) 2.5 % rectal cream Procto-Med HC 2.5 % topical cream perineal applicator apply thin layer to affected area 2 to four times a day hydrOXYzine HCl (ATARAX) 25 mg tablet Take 25 mg by mouth once daily. hydrOXYzine HCl (ATARAX) 25 mg tablet hydroxyzine HCl 25 mg tablet take 1 tablet by mouth once daily as directed ondansetron (ZOFRAN) 4 mg tablet ondansetron HCl 4 mg tablet take 1 to 2 tablets by mouth every 8 hours if needed for nausea ondansetron (ZOFRAN) 4 mg tablet take 1 to 2 tablets by mouth every 8 hours if needed for nausea penicillin V potassium (V-CILLIN, VEETIDS) 500 mg tablet penicillin V potassium 500 mg tablet take 1 tablet by mouth four times a day until finished penicillin V potassium (V-CILLIN, VEETIDS) 500 mg tablet take 1 tablet by mouth four times a day until finished predniSONE (DELTASONE) 50 mg prednisone 50 mg tablet take 1 tablet by mouth every morning with food for 5 days predniSONE (DELTASONE) 50 mg take 1 tablet by mouth every morning with food for 5 days docusate sodium (COLACE) 100 mg capsule Take 1 capsule by mouth twice daily as needed for constipation. ondansetron (ZOFRAN) 4 mg tablet Take 1 tablet by mouth every 8 hours as needed for nausea/vomiting. Methenamine Hippurate (HIPREX) 1 gram tablet Take 1 g by mouth twice daily. progesterone micronized (PROMETRIUM) 200 mg capsule Take 200 mg by mouth at bedtime as needed. Physical Exam Ht 170.2 cm (5' 7) Wt 59 kg (130 lb) BMI 20.36 kg/m ASSESSMENT/PLAN: (N81.0) Urethrocele (primary encounter diagnosis) (N81.11) Midline cystocele Possible anterior/urethrocele repair. documented in this encounter [facility] Progress note 05-22-2021 Note Date & Type Note Facility 05-22-2021 Note HNO ID: [id number] Author: Richard Cam MD Service: ? Author Type: Physician Type: Progress Notes Filed: 05/22/2021 2:05 PM Note Text: ESTABLISHED PATIENT VISIT HPI Matt Pettit is a 75 year old female who presents post op. She is doing well. Her incisions are clean and intact and healing. On exam her vault is well supported. We discussed postoperative care and we will see her in follow-up in 3 months. Surgery/Procedure Date: 04/25/2021 Incision/Procedure Start Time: 1:33 PM Incision Close/Procedure End Time: 4:16 PM ? Patient Age: [age] year old ? Surgeon(s)/Proceduralist(s) and Underwriting Intern(s): Surgeon(s) and Role: * Richard Cam MD - Primary * Gary Beasley MD - Resident - Assisting Toggler: Ish Kaba SA ? Anesthesia: General ? 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 - HTN (hypertension) - MVP (mitral valve prolapse) No family history on file. Social History Tobacco Use - Smoking status: Never Smoker - Smokeless tobacco: Never Used Vaping Use - Vaping Use: Never used Substance Use Topics - Alcohol use: Not Currently - Drug use: Never MEDICATIONS: atenolol (TENORMIN) 25 mg tablet Take 25 mg by mouth daily at bedtime. lisinopril (ZESTRIL, PRINIVIL) 10 mg tablet 20 mg. Coenzyme Q10 150 mg cap Take by mouth. estradiol (ESTRACE) 0.01 % (0.1 mg/gram) vaginal cream Estradiol (Estrace) 0.01 % (0.1 mg/gram) cream Active 1 GM VAGINAL TWICE A WEEK January 24, 2019 9:04am ascorbic acid, vitamin C, 500 mg cap 500 mg. VITAMIN D3-VITAMIN K2, MK4, ORAL Vitamin D3/Vitamin K2 (Mk4) Active 1 EA DAILY March 08, 2019 10:03am Magnesium Oxide 250 mg magnesium tab 250 mg. Dayton-3 1,050 mg, Fish Oil, 1,050-1,200 mg cap Take by mouth once daily. albuterol (PROVENTIL) 2.5 mg /3 mL (0.083 %) nebulizer solution albuterol sulfate 2.5 mg/3 mL (0.083 %) solution for nebulization inhale 1 vial in nebulizer every 4 hours if needed albuterol (PROVENTIL) 2.5 mg /3 mL (0.083 %) nebulizer solution inhale 1 vial in nebulizer every 4 hours if needed azithromycin (ZITHROMAX) 250 mg tablet azithromycin 250 mg tablet take 2 tablets by mouth on day 1 then take 1 tablet once daily for 4 days azithromycin (ZITHROMAX) 250 mg tablet take 2 tablets by mouth on day 1 then take 1 tablet once daily for 4 days budesonide (PULMICORT) 0.5 mg/2 mL nebulizer solution budesonide 0.5 mg/2 mL suspension for nebulization inhale 1 vial in nebulizer twice a day for 10 days budesonide (PULMICORT) 0.5 mg/2 mL nebulizer solution inhale 1 vial in nebulizer twice a day for 10 days hydrocortisone (PROCTO-MED HC) 2.5 % rectal cream Procto-Med HC 2.5 % topical cream perineal applicator apply thin layer to affected area 2 to four times a day hydrOXYzine HCl (ATARAX) 25 mg tablet Take 25 mg by mouth once daily. hydrOXYzine HCl (ATARAX) 25 mg tablet hydroxyzine HCl 25 mg tablet take 1 tablet by mouth once daily as directed ondansetron (ZOFRAN) 4 mg tablet ondansetron HCl 4 mg tablet take 1 to 2 tablets by mouth every 8 hours if needed for nausea ondansetron (ZOFRAN) 4 mg tablet take 1 to 2 tablets by mouth every 8 hours if needed for nausea penicillin V potassium (V-CILLIN, VEETIDS) 500 mg tablet penicillin V potassium 500 mg tablet take 1 tablet by mouth four times a day until finished penicillin V potassium (V-CILLIN, VEETIDS) 500 mg tablet take 1 tablet by mouth four times a day until finished predniSONE (DELTASONE) 50 mg prednisone 50 mg tablet take 1 tablet by mouth every morning with food for 5 days predniSONE (DELTASONE) 50 mg take 1 tablet by mouth every morning with food for 5 days docusate sodium (COLACE) 100 mg capsule Take 1 capsule by mouth twice daily as needed for constipation. ondansetron (ZOFRAN) 4 mg tablet Take 1 tablet by mouth every 8 hours as needed for nausea/vomiting. Methenamine Hippurate (HIPREX) 1 gram tablet Take 1 g by mouth twice daily. progesterone micronized (PROMETRIUM) 200 mg capsule Take 200 mg by mouth at bedtime as needed. Physical Exam Ht 170.2 cm (5' 7) Wt 57.2 kg (126 lb) BMI 19.73 kg/m? 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 Follow up in 3 months [facility] Clinical Note 04-25-2021 Note Date & Type Note Facility 04-25-2021 Note HNO ID: [id number] Author: Concetta Silva APRN.TOOL AND DIE ASSEMBLER Service: Anesthesiology Author Type: Nurse Hoof And Shoe Inspector Type: Anesthesia Procedure Notes Filed: 04/25/2021 1:31 PM Note Text: ANESTHESIOLOGY PROCEDURE NOTE Airway General Information Procedure Start Time/Medication Administration: 04/25/2021 1:11 PM Patient location during procedure: OR Consent Obtained: Yes 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 Anesthesiologist: Jose Beckman MD Performed by: anesthesiologist Indications and Patient Condition Preoxygenated: yes Patient position: sniffing Manual In-Line Stabilization: No Difficult Mask: No Indications for airway management: anesthesia and airway protection anesthesia circuit Method: asleep Cricoid Pressure: Yes Final Airway Details Final airway type: endotracheal airway Final Endotracheal Airway: ETT Cuffed: yes Successful intubation technique: direct laryngoscopy Endotracheal tube insertion site: oral Blade: Herminia Blade size: #4 ETT size (mm): 7.0 Measured from: lips Measurement (cm): 22 Placement verified by: chest auscultation and capnometry Cormack-Lehane Classification: grade IIa - partial view of glottis Number of attempts at approach: 2 Ventilation between attempts: BVM Other Attempts Unsuccessful attempted endotracheal techniques: direct laryngoscopy Failed airway: no Unrecognized esophageal intubation: no Airway not difficult SIGNATURE: Concetta Silva APRN.TOOL AND DIE ASSEMBLER PATIENT NAME: Matt Pettit DATE: April 25, 2021 TIME: 1:26 PM CSN: [id number] [facility] Progress note 01-29-2021 Note Date & Type Note Facility 01-29-2021 Note HNO ID: [id number] Author: Richard Cam MD Service: ? Author Type: Physician Type: Progress Notes Filed: 01/29/2021 7:11 AM Note Text: VIRTUAL VISIT PROGRESS NOTE This is a virtual visit using [employer] video visit. It required patient-provider interaction for the medical decision making as documented below. Patient scheduled for RALSCP and anterior repair. We discussed risks and concerns. Reviewed pre and post op care and discussed outcomes. Her questions were answered, she is considering surgery now or in the future. We have reviewed the most common postoperative complications that we encounter with procedures and they include the following but are not limited to: 1. Infection, wound infection or urinary tract infection 2. Bleeding and the ossible risk of transfusion, the risk of transfusion is very low however he will have some spotting or vaginal bleeding for some time. This may last up to 2 weeks. 3. It is common after surgery to have difficulties urinating. It is possible that she may go home with a catheter and require an office visit for removing the catheter. Our goal is that she does not experience any urinary incontinence after surgery however it is possible that she may have persistent urinary leakage. It is possible that she may require a second surgical procedure to correct urinary incontinence, urinary retention or incomplete bladder emptying. It is not uncommon for patients experience overactive bladder symptoms, urinary frequency urgency, often this will resolve with time. For patients that previously have experienced urinary frequency and urgency these symptoms may persist after surgery. 4. We always worry about injury to other organs including bowel, bladder and blood vessels. We frequently look in the bladder, cystoscopy, to ensure that there is no bladder injury. 5. There is always a possibility for repeat surgery to correct any problems that have developed. 6. We are always worried about postoperative blood clots and encourage walking after surgery. 7. After surgery walking, climbing stairs are driving are allowed when you are comfortable, no heavy lifting greater than 20 pounds for 4-6 weeks. You may shower immediately after surgery. No tub baths for 2 weeks after surgery. Please refrain from anything in the vagina for 4-6 weeks or until your sutures have dissolved. 8. Once you have healed intercourse should not be uncomfortable if you're noticing any pain or discomfort please let us know. HISTORY REVIEWED (electronic chart updated): No past medical history on file. No past surgical history on file. No family history on file. Social History Tobacco Use - Smoking status: Never Smoker - Smokeless tobacco: Never Used Vaping Use - Vaping Use: Never used Substance Use Topics - Alcohol use: Not Currently - Drug use: Never Current Outpatient Medications Medication Sig - atenolol (TENORMIN) 25 mg tablet Take 25 mg by mouth daily at bedtime. - lisinopril (ZESTRIL, PRINIVIL) 10 mg tablet 20 mg. - Methenamine Hippurate (HIPREX) 1 gram tablet Take 1 g by mouth twice daily. - progesterone micronized (PROMETRIUM) 200 mg capsule Take 200 mg by mouth at bedtime as needed. - Coenzyme Q10 150 mg cap Take by mouth. - estradiol (ESTRACE) 0.01 % (0.1 mg/gram) vaginal cream Estradiol (Estrace) 0.01 % (0.1 mg/gram) cream Active 1 GM VAGINAL TWICE A WEEK January 24, 2019 9:04am - ascorbic acid, vitamin C, 500 mg cap 500 mg. - VITAMIN D3-VITAMIN K2, MK4, ORAL Vitamin D3/Vitamin K2 (Mk4) Active 1 EA DAILY March 08, 2019 10:03am - Magnesium Oxide 250 mg magnesium tab 250 mg. - Dayton-3 1,050 mg, Fish Oil, 1,050-1,200 mg cap Take by mouth once daily. No current facility-administered medications for this visit. 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 Richard Cam MD [facility] Evaluation note Note Date & Type Note Facility Evaluation note Diagnosis Urethrocele- Primary Midline cystocele Cystocele, midline documented in this encounter [facility] Evaluation note Note Date & Type Note Facility Evaluation note [facility]: Summary Purpose Family History No Family History Records Found Relationship Condition Age at Onset Recorded Date/T jacquelyn mother Diabetes mellitus Unknown Hypertension Unknown Congenital anomaly of heart Unknown father Cerebrovascular accident (CVA) Unknown Relationship Condition Age at Onset Recorded Date/T jacquelyn Not Specified Osteoporosis Unknown Anxiety Unknown Arthritis Unknown Autoimmune disorder Unknown Depression Unknown Cardiac disease Unknown Disorder of thyroid Unknown mother Diabetes mellitus Unknown Hypertension Unknown Congenital anomaly of heart Unknown father Cerebrovascular accident (CVA) Unknown Goiter Unknown Advance Directives No Advanced Directives Records FoundDocuments on File Type Date Recorded Patient Stove Tender Expl anation Advance Directive(s) 04/25/2021 10:15 AM Advance Directive Response Recorded Date/ Time Living Will Yes September 25, 2020 3 :47pm Power of Medical Historian Yes September 25, 2020 3:47pm Advance Directive Response Recorded Date/ Time Living Will Yes September 25, 2020 4 :47pm Power of Medical Historian Yes September 25, 2020 4:47pm Chief Complaint and Reason for Visit Chief Complaint PELVIC FLOOR/PT HAS RX Chief Complaint PELVIC FLOOR/PT HAS RX PELVIC FLOOR/RX HERE Chief Complaint Admit Date thyroid nodule September 13, 2024 12: 51pm REPEAT THYROID FNA October 18, 2024 8:52a m Reason for Visit Admit Date Multiple thyroid nodules September 13 12:51pm Laryngopharyngeal reflux (LPR) October 18, 2024 8:52am Multiple thyroid nodules October 18, 2024 8:52am Reason for Visit Admit Date Multiple thyroid nodules September 13 12:51pm Additional Source Comments INFORMATION SOURCE (unrecogn ized section and content) DATE CREATED AUTHOR 04/28/2021 [facility] DATE CREATED AUTHOR AUTHOR'S ORGANIZ ATION 11/21/2021 [facility] DATE CREATED AUTHOR AUTHOR'S ORGANIZ ATION 05/22/2023 [facility] ([place]) DATE CREATED AUTHOR AUTHOR'S ORGANIZ ATION 12/09/2024 [facility] DATE CREATED AUTHOR AUTHOR'S ORGANIZ ATION 12/26/2024 [facility] Source Comments (unrecognize d section and content) In the event this informatio n is protected by the Federal Confidentiality of Alcohol and Drug Abuse Patient Records regulations: The Federal rules restrict any use of the information to criminally investigate or prosecute any alcohol or drug abuse patient.[facility] Reason for Visit (unrecogniz ed section and content) Reason Comments Established Patient 3 month follow up Care Teams (unrecognized sec tion and content) Dog Hair Clipper Relationship Specialty Start Date End Date Keshawn Arora MD [address] [place] [address] PCP - General Internal Medicine 04/25/21 Team Status: Active Member Role Status Dates Rekha Lockwood NP, O AND M SUPERVISOR-C Family Provider Active Dr. Keshawn Arora MD Primary Care Provider Active Team Status: Inactive Member Role Status Dates Dr. Keila Esposito MD Attending Provider, Referring P rovider Active Dr. Keshawn Arora MD Primary Care Provider Active Team Status: Inactive Member Role Status Dates Dr. Keshawn Arora MD Primary Care Provider Active Dr. Keila Esposito MD Attending Provider, Referring P rovider Active Team Status: Inactive Member Role Status Dates Dr. Keshawn Arora MD Primary Care Provider Active Start: September 13, 2024 End: September 13, 2024 Dr. Keshawn Arora MD Referring Provider Active Start: September 13, 2024 End: September 13, 2024 Dr. Derain Guerra MD Attending Provider Active Start: September 13, 2024 End: September 13, 2024 Team Status: Inactive Member Role Status Dates Dr. Keshawn Arora MD Primary Care Provider Active Start: September 13, 2024 End: September 13, 2024 Dr. Derian Guerra MD Attending Provider Active Start: September 13, 2024 End: September 13, 2024 Dr. Derian Guerra MD Referring Provider Active Start: September 13, 2024 End: September 13, 2024 Team Status: Inactive Member Role Status Dates Dr. Keshawn Arora MD Primary Care Provider Active Start: October 18, 2024 End: October 18, 2024 Dr. Keshawn Arora MD Referring Provider Active Start: October 18, 2024 End: October 18, 2024 Dr. Derian Guerra MD Attending Provider Active Start: October 18, 2024 End: October 18, 2024 Team Status: Inactive Member Role Status Dates Dr. Keshawn Arora MD Primary Care Provider Active Start: October 18, 2024 End: October 18, 2024 Dr. Derian Guerra MD Attending Provider Active Start: October 18, 2024 End: October 18, 2024 Goals (unrecognized section and content) Goals may be documented in a n alternate sectionGoals may be documented in an alternate sectionGoals may be documented in an alternate sectionGoals may be documented in an alternate section FOR RECORDS PERTAINING TO PATIENTS WHO ARE OR HAVE BEEN ENROLLED IN A CHEMICAL DEPENDENCY/SUBSTANCEABUSE PROGRAM, SOME INFORMATION MAY BE OMITTED. This clinical summary was aggregated from multiple sources. Caution should be exercised in using it in the provision of clinical care. This summary normalizes information from multiple sources, and as a consequence, information in this document may materially change the coding, format and clinical context of patient data. In addition, data may be omitted in some cases. CLINICAL DECISIONS SHOULD BE BASED ON THE PRIMARY CLINICAL RECORDS. [employer] provides no warranty or guarantee of the accuracy or completeness of information in this document.
[2024-12-29 08:00] VITALS: BP 187/90; PULSE 61; RESP 16; TEMP 37.1; O2SAT 100; BMI 19.5
[2024-12-29] MEDS: Lactated Ringers 1,000 ML 15 ML IV (08:03)
--- NOTE | 2024-12-29 08:15 | EGD_PTH ---
PATIENT: SHYANNE PETTIT LOC: EN U#:[id number] AGE/SX: 79/F ROOM: RE12/29/[address]: Dr. Derian Guerra MD : 1945 BED: DIS: 12/29/2024 SPEC #: [id number] RECD: 12/29/24 09:37 STATUS: CASSIDY MORGAN #: [id number] ASHLEY: 12/29/24 08:[address]: Derian Guerra DEPT: SURGICAL PATHOLOGY RECD BY: Charlie Connors ENTERED: 12/29/24 10:48 SP TYPE: EGD BIOPSY OTHR DR: No Primary Care Phys Tissues: A - Duodenum, NOS B - Gastric mucous membrane C - Gastric mucous membrane Procedures: Immunohistochemical Stains Surgery Specimen Level IV HEADER OPERATION: EGD with biopsy and polypectomy, bipolar electrohemostasis PRE-OP DIAGNOSIS: Eosinophilic esophagitis TISSUE SUBMITTED: A- Duodenal bulb mucosa nodule, B- Antrum biopsy, C- Gastric body polyp MICROSCOPIC DIAGNOSIS A. Duodenum, biopsy: - Normal villous architecture with increased intraepithelial lymphocytes - see note. - Focal gastric metaplasia. Note: This pattern of injury is etiologically nonspecific and the differential diagnosis includes sensitivity to gluten and non-gluten proteins, small intestinal bacterial overgrowth, stasis related changes, infection, protein calorie malnutrition, tropical sprue, and medication injury (NSAIDs, Olmesartan / Benicar, Mycophenolic acid, Idelalisib, for example). If celiac disease is a clinical concern, additional clinical studies, such as tTG-IgA, are recommended. B. Antrum, biopsy: - Oxyntic mucosa with features of reactive gastropathy. - IHC negative for H. Pylori organisms. C. Gastric body, polyp, biopsy: - Fundic gland polyp. MICROSCOPIC DESCRIPTION Slides are reviewed. All matched controls reacted appropriately. These tests were developed and their performance characteristics determined by [facility]. They may not have been cleared or approved by the U.S. Food and Drug Administration. The FDA has determined that such clearance or approval is not necessary. The above immunohistochemical markers are reviewed by the Pathologist. GROSS DESCRIPTION A. Received in fixative is one container labeled with the patient's name and designated Duodenum bulb mucosa nodule. The specimen consists of one irregular fragment of light bar soft tissue that measures 0.4 cm. The specimen is totally submitted in one cassette. B. Received in fixative is one container labeled with the patient's name and designated Antrum biopsy. The specimen consists of two irregular fragments of light bar soft tissue that measure 0.2 and 0.7 cm. The specimen is totally submitted in one cassette. C. Received in fixative is one container labeled with the patient's name and designated Gastric body polyp. The specimen consists of two irregular fragments of light bar soft tissue that measure 0.2 and 0.4 cm. The specimen is totally submitted in one cassette. ND 12/29/2024 CPT:29599e8,11234
--- NOTE | 2024-12-29 08:22 | PCM.HP.BLA ---
History and Physical Date of Service: 10/18/24 MR#: [id number] Acct: [id number] Name: SHYANNE TORRES Rep #: [id number] : 1945 Provider: Dr. Derian Guerra MD Age/Sex: 79/F Location: [facility] Status: Signed Intake Vital Signs 09/13/2512:12 10/18/2508:02 Height 5 ft 7 in Weight: 127 lb 6 oz BMI 19.9 BP 182/80 H 185/78 H Blood Pressure Location Lt brachial Rt radial Position Sitting Sitting Respiration 16 18 Pulse 65 57 L Pulse Source Monitor Monitor Temp 97.6 F L Temp Source Temporal Pulse Oximetry (%) 97 96 Oxygen Delivery Method room air room air Intake Visit Reasons: REPEAT THYROID FNA Chief Complaint: repeat thyroid fna Is patient in pain?: No Allergies metoprolol Adverse Reaction (Intermediate, Verified 10/18/24 09:03) palpitationsmorphine Adverse Reaction (Verified 10/18/24 09:03) Nausea Medications ?Medication ?Instructions ?Recorded ?Confirmed ?Type ascorbic acid (vitamin C) 500 mg 500 mg PO DAILY supplement 01/24/19 10/18/24 History capsule cod liver oil 1 cap PO DAILY 01/24/19 10/18/24 History coenzyme Q10 150 mg capsule (Co 150 mg PO DAILY supplement 01/24/19 10/18/24 History Q-10) estradiol 0.01% (0.1 mg/gram) 1 g vaginal 2XW 01/24/19 10/18/24 History vaginal cream (Estrace) lisinopril 10 mg tablet 20 mg PO DAILY htn 01/24/19 10/18/24 History magnesium 250 mg tablet 250 mg PO DAILY 01/24/19 10/18/24 History Homocysteine Factors 1 cap PO BID supplement 03/08/19 10/18/24 History cholecalciferol (vit D3) 1,000 1 ea PO DAILY supplement 03/08/19 10/18/24 History unit-vitamin K2 (MK4) 100 mcg tablet hydroxyzine HCl 25 mg tablet 25 mg PO PRN PRN Anxiety ##0 03/16/19 10/18/24 Rx atenolol 25 mg tablet 12.5 mg PO QHS htn 09/19/24 10/18/24 History citrulline 600 mg capsule 3 g PO BID 09/19/24 10/18/24 History progesterone micronized 200 mg 200 mg PO QHS 09/19/24 10/18/24 History capsule vibegron 75 mg tablet (Gemtesa) 75 mg PO QDAY 09/19/24 10/18/24 History pantoprazole 40 mg tablet,delayed 40 mg PO DAILY lpr #30 tabs 10/18/24 10/18/24 Rx release Have you fallen in the past year?: No PFSH Medical History Thyroid nodule Vaginal laceration Diverticulitis Mitral valve prolapse Hypothyroidism Hypertension Anxiety Surgical History History of shoulder surgery Cataract H/O adenoidectomy History of tonsillectomy H/O tubal ligation H/O cystoscopy Family History (Updated 09/19/24 @ 08:44 by Carter Wren RN) Mother Diabetes Hypertension CHD (congenital heart disease)Father CVA (cerebral vascular accident) Hypertension GoiterOther Anxiety Arthritis Autoimmune disorder Depression Heart disease Osteoporosis Thyroid disorder Social History Smoking Status: Never smoker alcohol intake: never substance use type: does not use caffeine: Yes what type of physical activity do you participate in: none and walking seatbelt use: always do you feel safe at home: Yes additional social history: Chatty Patient is retired HPI HPI HPI: Patient is a [id number]-y[age]g-old female who presents for evaluation of thyroid nodularity. She is here for follow-up and repeat FNA after consult 09/13/2024 with nondiagnostic results. She reports of her voice concerns that she is potentially more convinced that this is reflux?mediated. She confesses that she has not been sleeping with her head elevated and suspects this is something that she could improve upon with meaningful results. She otherwise denies eating anything after 5:30 PM and states that she has not worn for much caffeine. She later expresses some concern about starting acid reducing medication as she has been told she has low vitamin B12 levels. Below is recapitulated from patient's initial consultation visit for ease of review: Patient is a 68-zqbu-v[age]-old female who presents for evaluation of thyroid nodularity. They are referred for surgical consultation from Dr. Arora. She recalls first being made aware of thyroid nodularity after a a senior analysis specialist she had followed with for her general health noted that her left neck was more prominent than her right this was secondary to her thyroid. She believes this observation was first made circa 2011. As she prepared for today's visit she found records of a FNA biopsy in 2013. She recalls being told at that time that her nodule was benign. She is uncertain where exactly the biopsy was performed but notes that it was back in her hometown of [place] [facility]. Additionally, she states that she had forgotten about a repeat ultrasound that was performed at [facility] in 2019 as she was preparing for today's visit. She notes that today's visit was occasioned by a renewed interest in her thyroid after describing some hoarseness of voice to her primary care provider. She notes that this hoarseness came about acutely 1 day in May several weeks after her passed from complications related to Parkinson's disease. She states that this hoarseness has puzzled her as she has never smoked a day in her life and has no history of reflux. She does note that if anything the hoarseness seems to be a tad better. They do not experience difficulty with swallowing. They do not complain of a new cough per se but do confirm a history of a cough which she has always related to her use of lisinopril. They do not have a history of snoring/sleep apnea. Additionally, their weight has been stable apart from a history of weight a small amount of weight loss achieved through intentional effort. There is some history of recent fatigue, patient qualifies this as being related to the stress of recent events (referencing the passing of her and anticipating a move back home to her family in [place]). They do have a history of cold intolerance. Other symptoms include: Pertinent negatives: No unusual swelling or sweating. They do have a family history of thyroid disorders and shared that her father was diagnosed with a thyroid goiter but they are uncertain whether or not he required any intervention. There is no history of prior radiation exposure. Previous work-up has included thyroid ultrasound. This study was performed on 08/11/2024 and showed a right thyroid lobe measuring 4.4 x 2.5 x 1.9 cm. Within this lobe radiology identified 2 nodules measuring 1.3 x 1.3 x 1.7 cm in greatest dimension and was rated a TI-RADS 3 while a smaller 8 mm nodule was also noted and rated TI-RADS 4. The left thyroid lobe measured 5.3 x 3.5 x 2.8 cm. Within this lobe radiology identified a nodule measuring 3.5 x 2.5 x 2.2 cm. It was rated a TI-RADS 3 nodule and was noted that its appearance was similar to prior exam. A second nodule in the lower pole was measured at 2.4 x 1.6 x 1.2 cm it was also rated a TI-RADS 3. An FNA has not been performed since these results. Other tests include: TSH: 2.63 (07/20/2024), free T3: 2.7 (07/20/2024), anti-TPO antibodies: 12 (07/20/2024) ROS General General: No weight change, appetite, fatigue, colon cancer, breast cancer or weakness HEENT HEENT: No difficulty swallowing, eye injury, eye surgery, swollen glands or hoarseness Endo Endocrine: Yes thyroid disease; No diabetes mellitus, thyroid cancer, Hair loss, heat intolerance or cold intolerance Skin Skin: No rash or changing moles Musc Musculoskeletal: No back problems, arthritis, rheumatoid arthritis, gout or joint pain Cardio Cardiovascular: Yes high blood pressure; No murmur, pacemaker, heart disease, atrial fibrillation, heart attack, heart stent, palpitations, shortness of breath with exertion or chest pain Psych Psychiatric: Yes anxiety; No depression or hearing voices Resp Respiratory: No shortness of breath, No sleep apnea, No cough, No COPD, No asthma, No emphysema and No wheezing Gastro Gastrointestinal: No abdominal pain, No nausea or vomiting, No diarrhea, No constipation, No blood in stool, No acid reflux, Yes hemorrhoids, No ulcers, No gallbladder problem and No black,tarry stools Fredi Hematologic: No blood thinners, No blood disorders, No bleeding, No anemia and No blood clots Neuro Neurologic: No numbness, No tingling and No weakness Exam Const General: cooperative Neck Other: No signs of previous biopsy (well-healed) Office Procedures Fine Needle Aspiration Provider Documentation Details: Indication: Left thyroid nodules After obtaining patient consent and conducting a timeout amongst those present, the procedure was commenced by locating the suspicious nodules in the superior and mid pole of the left thyroid lobe using ultrasound. Superficially, the skin was cleaned with an alcohol swab and a wheal of local anesthetic was created after instilling 1% lidocaine. A total volume of 7 ml 1% lidocaine was required for this procedure. Then, under ultrasound guidance, multiple passes were made into the left thyroid nodule starting with a 25-gauge needle. Once an adequate specimen was detected within the hub of the needle, this was handed off the field. A second pass was made in a similar manner using a 22-gauge needle. This specimen, also, was passed off the field for cytopathologic evaluation. This sequence was repeated with 3rd and 4th passes using 25-gauge and 22-gauge needles, respectively for both cytopathology and for submission for genomic testing should patient have an atypical cytopathology result. External pressure was applied to the neck to assist with hemostasis. I then set about performing biopsy of patient's more dominant mid polar nodule once again using using 4 passes with the same needle gauge as described above. At about this time pathology reported that there was a paucity of cellular material with the previous passes on the superior nodule so a fifth and final pass was completed for that nodule with a third 25-gauge needle. A quick examination was made with ultrasound to exclude any evidence of hematoma formation. Then the surface of the neck was cleaned, dried, and a bandage was applied. Patient was gradually returned to the sitting position and after short period of monitoring was dismissed. Wound care instructions and expectations regarding pathologic processing were discussed prior to dismissal. Complications: None Estimated blood loss: 3 ml Alert Surgical Nurse Practitioner Alert Billing: Yes FNA 56251 Thyroid (FNA x 2) Procedure Time Out Time Out Informed consent given: Yes Consent signed: Yes Time out checklist: patient, procedure, site marked/identified, positioning of patient, supplies available, allergies confirmed and team agrees on procedure Time out staff in room: Yes Time out verified: Yes Time out date: 10/18/24 Time out time: 09:45 Assessment and Plan Assessment and Plan (1) Multiple thyroid nodules: Status: Chronic Comment: Patient is a 79-year-old female, euthyroid from an endocrine standpoint, who presents for evaluation of thyroid nodularity after a primary complaint of new onset hoarseness beginning May of this year. Interestingly, she otherwise denies other compressive symptoms. Patient has a history of evaluation for these thyroid nodules dating back to at least 2013 when she underwent FNA biopsy of a left sided thyroid nodule. Unfortunately, we do not have those original records to compare exact sizes. Additionally, patient underwent imaging in 2019 which does characterize both her lobes and nodules with exact sizes. I used this as a backdrop to compare her most recent imaging completed August 11, 2024 with this imaging and discussed both those findings as well as their significance by introducing the TI-RADS rating system. I shared that her 3.5 cm TI-RADS 3 nodule of the left lobe was clearly indicated for FNA biopsy but also made the argument that I believed her 2.4 cm TI-RADS 3 inferior pole nodule also could be considered for biopsy based on CORKY volume calculation that found it to have grown by over 100% in the last 5 years. Patient was receptive and the procedure was completed in uncomplicated fashion during today's visit. Full details are given in the procedures section of this note. Additionally, I described to Ms. Torres the need to refer for laryngoscopy as this may provide information not only on the mobility of her vocal cords but also any additional possible etiologies for her hoarseness. I do find it noteworthy that despite the greater than 100% growth of her inferior pole nodule the overall size of her left thyroid lobe appears relatively stable (just +0.38% by volume since 2019). I briefly introduced surgical options to include thyroid lobectomy versus total thyroid. I also suggested that we could find a natural breakpoint in her investigatory workup for this nodule if she chose to have her procedure done in [place] given her plans for relocation. I described how this may be an appropriate course of action to take if we confirm that the nodules are benign given the implications for postoperative follow-up. Yet, Ms. Torres makes it clear that she would be interested in having her surgery here in [place] as she is feels comfortable given her experience with [facility] for other prior surgeries. Update 10/18/2024: Patient's status post repeat FNA biopsy of 2 left-sided thyroid nodules. Once again, pathology noted scant cellularity?particularly for patient's more superior nodule so additional pass was made to try to ensure a diagnostic result. Post procedure wound care instructions were reviewed. Patient tolerated the procedure without complication. Plan: ?Patient advised to apply ice to neck today. Use [id number] analgesia. Remove bandage later today ?Await cytopathology results and follow-up with patient for formulation of remainder of care plan (2) Laryngopharyngeal reflux (LPR): Status: Acute Comment: Patient with hoarseness status post nasopharyngeal laryngoscopy with ENT. 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 Thus I recommended to patient, that in addition to working to elevate her head at night, I would recommend she begin a defined course of PPI therapy. Patient was initially reluctant given her history of B12 deficiency but when we agreed to a 1 month duration of therapy she agreed. Plan: Pantoprazole 40 mg daily x 30 days Medications: New pantoprazole 40 mg PO DAILY 30 tabs 0RF lpr I have examined the patient the following changes are noted: Patient completed 30-day course of PPI but denies any significant improvement with this medication. However, she reports starting with a dietitian and has now experienced some improvement with her voice. She also notes that she is pending a move to [place] in the coming weeks. She denies any questions related today's plan for EGD to follow-up evidence of LPR a cause to her hoarseness as discovered by ENT.
--- NOTE | 2024-12-29 08:23 | PCM.PRE.AN2 ---
ASA Classification* ASA Classification ASA Classification: 2 Assessment & Plan Anesthesia* Anesthesia Assessment Anesthesia Assessment: Discussed sedation and/or anesthesia options, risks, benefits, and alternatives with patient/parents/legal guardian/POA. Questions invited. The patient/parents/legal guardian/POA seems to understand and agrees to proceed with anesthesia plan. Reviewed the physical assessment, medical history, allergy history and patient home medications list prior to surgery/procedure/anesthetic and documented any changes. Performed airway and anesthesia risk assessments. Anesthesia Type Anesthesia Type: MAC History Source History Obtained from:: Patient and Chart Anesthesia Focused Assessment* Temperature: 98.7 F Pulse Rate: 61 Blood Pressure: 187/90 Respiratory Rate: 16 Pulse Ox: 100 Oxygen Delivery Method: Room Air Airway Assessment Mouth opens: >3 cm Mallampati Score: IV Teeth Condition: Caps/Crowns (Patient has several crowns. They are all tight.) Neck Range of motion (ROM): Full ROM Labs Anesthesia Preop lab: CBC WBC 7.8 K/mm3 (4.4-11.0) 03/28/20 08:38 03/28/20 RBC 4.55 M/mm3 (4.2-5.4) 03/28/20 08:38 03/28/20 Hgb 14.2 g/dL (12.0-15.0) 03/28/20 08:38 03/28/20 Hct 42.5 % (37-47) 03/28/20 08:38 03/28/20 Plt Count 313 K/mm3 (150-450) 03/28/20 08:38 03/28/20 CHEMISTRY Potassium 4.3 mmol/L (3.5-5.1) 03/28/20 08:38 03/28/20 Sodium 131 mmol/L (136-145) L 03/28/20 08:38 03/28/20 BUN 16 mg/dL (7-18) 03/28/20 08:38 03/28/20 Creatinine 0.88 mg/dL (0.55-1.02) 03/28/20 08:38 03/28/20 Glucose 100 mg/dL (74-106) 03/28/20 08:38 03/28/20 POC Glucose 87 mg/dL (70-110) 03/15/19 06:23 03/15/19 TSH 2.57 uIU/mL (0.358-3.74) 03/28/20 08:38 03/28/20 COAG PT 12.7 SECONDS (11.7-14.9) 03/10/19 13:41 03/10/19 Pre-Assessment Diagnosis/Proposed Procedure Planned Operative Procedure(s): EGD Anesthesia History Anesthesia History - crate icer: Anesthesia History - crate icer Hx Hospitalization No 12/28/24 12:34 Any Problems With Anesthesia Yes: N&V-PT FELT IT WAS 12/28/24 12:34 MORPHINE Cholinesterase deficiency No 12/28/24 12:34 You/Your Family Experience No 12/28/24 12:34 fever (hyperthermia) with Relationship Recent Exposure to Contagious No 12/29/24 08:00 Disease Does patient have nerve No 12/28/24 12:34 stimulator Patient instructed to have device shut off --Does patient have Pacemaker No 12/29/24 08:00 or ICD? When Was Last Pacemaker Check QUESTION #4 FULL TEXT: You/Your Family Experience fever (hyperthermia) with Anesthesia Last Oral Intake Last Oral intake: Last Oral Intake NPO since 05:30 12/29/24 08:00 Meds taken in AM with sips of Yes 12/29/24 08:00 water? 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 meds with sip of water.) Meds taken in AM with sips of water?: Yes PONV PONV - crate icer: PONV - crate icer Female Yes 12/28/24 12:34 HX of Motion Sickness No 12/28/24 12:34 HX of N/V After Surgery No 12/28/24 12:34 Non-Smoker Yes 12/28/24 12:34 Duration of Surgery greater No 12/28/24 12:34 than 60 minutes Number of Risk Factors 2 12/28/24 12:34 PONV Score Moderate Risk 12/28/24 12:34 Height & Weight Height & Weight: Anesthesia: Height & Weight Height 5 ft 7 in 12/29/24 08:00 Weight: 56.5 kg 12/29/24 08:00 Body Mass Index (BMI) 19.5 12/29/24 08:00 Respiratory Assessment Respiratory Assessment - crate icer: Respiratory Tract Infection Hx - crate icer Hx Respiratory Tract Infection No 12/28/24 12:34 STOP Sleep Apnea STOP Sleep Apnea - crate icer: STOP Sleep Apnea - crate icer Hx Hypertension Yes: CONTROLLED ON MED 12/28/24 12:34 Hx Sleep Apnea No 12/28/24 12:34 CPAP BIPAP Do you snore loudly (louder No 12/28/24 12:34 than talking or can be heard Do you often feel tired/ No 12/28/24 12:34 fatigued/ sleepy during daytime? Has anyone observed you stop No 12/28/24 12:34 breathing during sleep? STOP Results Negative 12/28/24 12:34 QUESTION #5 FULL TEXT : Do you snore loudly (louder than talking or can be heard through closed doors)? Tobacco Use History Tobacco Use History - crate icer: Tobacco Use History - crate icer Tobacco Use Non-smoker 09/25/20 16:47 Smoking Status Never smoker 12/28/24 12:34 Hx Tobacco Use No 12/28/24 12:34 Years Smoking Packs Smoked per Day Smoking Cessation Date was within the last 15 years Hx Smoking Cessation Date Hx Smoking Cessation Counseling Hematologic Medial History Hematologic Hx - crate icer: Hematologic Medical Hx - documentation coordinator Hx of Blood Transfusion No 12/28/24 12:34 Hx of Transfusion in last 3 No 12/28/24 12:34 Months Date of Last Transfusion (if within last 3 months) Ever experience any problems No 12/28/24 12:34 with transfusion(s)? Specify any problems Hx of Preganancy in last 3 No 12/28/24 12:34 Months Nurse Filling Out Transfusion VCHRISTIN 12/28/24 12:34 & Questions: Date: 12/28/24 12/28/24 12:34 Time: 12:35 12/28/24 12:34 Patient unable to answer at this time (ie. confused, unrespo /Reproduction History /Reproductive History - crate icer: /Reproductive Hx- crate icer Hx Now No 12/28/24 12:34 Gestational Age (in weeks): EDC: Hx Hx Para Hx Section SAB No 12/28/24 12:34 Active Medications Active Medications: Current Medications Generic Name Dose Route Start Last Admin Trade Name Freq PRN Reason Stop Dose Admin Lactated Ringer's 1,000 mls @ 15 mls/hr 12/29/24 07:30 12/29/24 08:03 IV 15 mls/hr .Q48H ADONIS Administration PFSH Medical History Wears glasses Post-menopausal Depression Thyroid disease Back pain Non-smoker Hoarseness Thyroid nodule Vaginal laceration Diverticulitis Mitral valve prolapse Hypothyroidism Hypertension Anxiety Home Medications ?Medication ?Instructions ?Recorded ?Last Taken ?Type coenzyme Q10 150 mg capsule (Co 150 mg PO DAILY supplement 01/24/19 Unknown History Q-10) estradiol 0.01% (0.1 mg/gram) 1 g vaginal 2XW 01/24/19 Unknown History vaginal cream (Estrace) magnesium 250 mg tablet 250 mg PO DAILY 01/24/19 Unknown History cholecalciferol (vit D3) 1,000 1 ea PO DAILY supplement 03/08/19 Unknown History unit-vitamin K2 (MK4) 100 mcg tablet hydroxyzine HCl 25 mg tablet 25 mg PO PRN PRN Anxiety ##0 03/16/19 Unknown Rx atenolol 25 mg tablet 12.5 mg PO QHS htn 09/19/24 12/28/24 22:00 History citrulline 600 mg capsule 3 g PO BID 09/19/24 Unknown History progesterone micronized 200 mg 200 mg PO QHS 09/19/24 Unknown History capsule vibegron 75 mg tablet (Gemtesa) 75 mg PO QDAY 09/19/24 Unknown History diazepam (bulk) 100 % powder 1 ea miscellaneous PRN 12/28/24 Unknown History estradiol 1 mg tablet 1 mg PO DAILY 12/28/24 Unknown History multivitamin (Daily Multi-Vitamin 1 tab PO DAILY 12/28/24 Unknown History tablet) omega 3 350 mg-dha 235 mg-epa 90 1 cap PO DAILY 12/28/24 12/22/24 History mg-fish oil 597 mg capsule,delay rel (Naco-3) thyroid (pork) 60 mg tablet 60 mg PO DAILY 12/28/24 12/29/24 05:30 History (Saffell Thyroid) Allergy/AdvReac Type Severity Reaction Status Date / Time metoprolol AdvReac Intermediate palpitation Verified 12/29/24 07:58 s morphine AdvReac Nausea Verified 12/29/24 07:58 Family History Mother Diabetes Hypertension CHD (congenital heart disease) Father CVA (cerebral vascular accident) Hypertension Goiter Other Anxiety Arthritis Autoimmune disorder Depression Heart disease Osteoporosis Thyroid disorder Surgical History Hx of surgical procedure History of shoulder surgery Cataract H/O adenoidectomy History of tonsillectomy H/O tubal ligation H/O cystoscopy Social History Smoking Status: Never smoker alcohol intake: never substance use type: does not use caffeine: Yes what type of physical activity do you participate in: none and walking seatbelt use: always do you feel safe at home: Yes additional social history: [employer] Patient is retired Review of Systems (Anesthesia) ROS Narrative System reviewed and no additional complaints, except as documented.
[2024-12-29 08:28] VITALS: BP 187/90; PULSE 61; RESP 16; TEMP 37.1; O2SAT 100
[2024-12-29] MEDS: Lidocaine 1% (5 ml sdv) 5 ML Vial IV (08:35)
--- NOTE | 2024-12-29 09:02 | PCM.POST.ANE ---
Anesthesia: Postop Eval I Current Vital Signs Temperature: 98 F Pulse Rate: 56 Blood Pressure: 92/46 Respiratory Rate: 16 Pulse Ox: 100 Oxygen Delivery Method: Room Air Assessment Airway patent: Yes Spontaneous unlabored respirations: Yes Mental status: Awake and Calm nausea: No Vomiting: No Anesthesia Complication: No Fluid Hydration Crystalloid volume administer (ml): 600 Total IV fluid infused: 600 Progress Note Anesthesia document: Postop Eval 1 completed: Yes
[2024-12-29 09:03] VITALS: BP 92/46; PULSE 56; RESP 16; TEMP 36.6; O2SAT 100
--- NOTE | 2024-12-29 09:11 | POSTOPAN2_ITS ---
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.[email or web address] Spontaneous unlabored Yes 12/29/24 09:03 CUSTOM MOTORCYCLE PAINTER.GAYATRI respirations Mental status Awake,Calm 12/29/24 09:03 CUSTOM MOTORCYCLE PAINTER.OT nausea No 12/29/24 09:03 CUSTOM MOTORCYCLE PAINTER.OT Vomiting No 12/29/24 09:03 CUSTOM MOTORCYCLE PAINTER.[email or web address] Anesthesia Postop Eval I: Fluid Summary Crystalloid volume administer 600 12/29/24 09:03 CUSTOM MOTORCYCLE PAINTER.MDOT (ml) Colloids volume administered ( ml) Blood Product volume administered (ml) Total IV fluid infused 600 12/29/24 09:03 CUSTOM MOTORCYCLE PAINTER.[email or web address] Anesthesia Postop Eval I: Summary Notes Anesthesia Complication No 12/29/24 09:03 CUSTOM MOTORCYCLE PAINTER.[email or web address] Anesthesia Complication Comment: Post-operative progress note Anesthesia: Postop Eval II Evaluation Mental status: Awake and Calm Pain Level: 0 nausea: No Vomiting: No Complications Anesthesia Complication: No
--- NOTE | 2024-12-29 09:11 | PCM.POSTANE2 ---
Anesthesia Postop Eval I Sum Postop Eval Completion status Anesthesia document: Postop Eval 1 completed: Yes Anesthesia Postop Eval I Summary Anesthesia Postop Eval I Summary: Anesthesia Postop Eval I: Assessment Summary Airway patent Yes 12/29/24 09:03 MINES SAFETY [email or web address].[email or web address] Spontaneous unlabored Yes 12/29/24 09:03 MINES SAFETY ENGINEER.GAYATRI respirations Mental status Awake,Calm 12/29/24 09:03 MINES SAFETY ENGINEER.OT nausea No 12/29/24 09:03 MINES SAFETY ENGINEER.OT Vomiting No 12/29/24 09:03 MINES SAFETY ENGINEER.GAYATRI Anesthesia Postop Eval I: Fluid Summary Crystalloid volume administer 600 12/29/24 09:03 MINES SAFETY ENGINEER.MDOT (ml) Colloids volume administered ( ml) Blood Product volume administered (ml) Total IV fluid infused 600 12/29/24 09:03 MINES SAFETY ENGINEER.GAYATRI Anesthesia Postop Eval I: Summary Notes Anesthesia Complication No 12/29/24 09:03 MINES SAFETY ENGINEER.GAYATRI Anesthesia Complication Comment: Post-operative progress note Anesthesia: Postop Eval II Evaluation Mental status: Awake and Calm Pain Level: 0 nausea: No Vomiting: No Complications Anesthesia Complication: No
--- NOTE | 2024-12-29 09:15 | OP.PROVAT_ITS ---
12/29/2024 No Primary Care Physician Re : Upper GI endoscopy procedure for Matt Torres Dear Care Physician This procedure was performed on December. My impressions and recommendations are as follows: Impressions : - Normal first portion of the duodenum and second portion of the duodenum. No specimens collected. - Mucosal nodule found in the duodenum. Biopsied. - Erythematous mucosa in the antrum. Biopsied. - Bilious gastric fluid. No specimens collected. - Z-line regular, 43 cm from the incisors. No specimens collected. - Small hiatal hernia. No specimens collected. - A single gastric polyp. Biopsied. - Normal esophagus. Recommendations : - Discharge patient to home (via wheelchair). - Resume previous diet today. - No aspirin, ibuprofen, naproxen, or other non-steroidal anti-inflammatory drugs for 2 days after biopsy. - Await pathology results. - Telephone my office for pathology results in 1 week. My findings are described in the full procedure note, which is enclosed. If I can be of further assistance, please feel free to contact me at Doctor phone number(s): , Work: . Sincerely, Derian Guerra MD 12/29/2024 9:14:30 AM This report has been signed electronically.
--- NOTE | 2024-12-29 09:15 | OP.EGD_ITS ---
Patient Name: Matt Torres Procedure Date: 12/29/2024 8:21 AM Date of : 1945 Age: 79 Procedure: Upper GI endoscopy Indications: Hoarseness, Hoarseness of voice Providers: Derian Guerra MD Referring MD: No Primary Care Physician Medicines: See the Anesthesia note for documentation of the administered medications Patient Profile: Refer to note in patient chart for documentation of history and physical. Complications: No immediate complications. Estimated blood loss: Minimal. Procedure: Pre-Anesthesia Assessment: - The heart rate, respiratory rate, oxygen saturations, blood pressure, adequacy of pulmonary ventilation, and response to care were monitored throughout the procedure. After obtaining informed consent, the endoscope was passed under direct vision. Throughout the procedure, the patient's blood pressure, pulse, and oxygen saturations were monitored continuously. The Endoscope was introduced through the mouth, and advanced to the second part of duodenum. The upper GI endoscopy was accomplished without difficulty. The patient tolerated the procedure well. Scope In: 8:42:38 AM Scope Out: 9:00:48 AM Total Procedure Duration Time 0 hours 18 minutes 10 seconds Findings: The first portion of the duodenum and second portion of the duodenum were normal. No biopsies or other specimens were collected for this exam. A few 2 mm mucosal nodules with a localized distribution were found in the duodenal bulb. The nodules were Tess classification Is (protruding, sessile). Biopsies were taken with a cold forceps for histology. Estimated blood loss was minimal. Localized mildly erythematous mucosa without bleeding was found in the gastric antrum. Biopsies were taken with a cold forceps for Helicobacter pylori testing. Estimated blood loss was minimal. Bilious fluid was found in the stomach. No biopsies or other specimens were collected for this exam. The Z-line was regular and was found 43 cm from the incisors. No biopsies or other specimens were collected for this exam. A small hiatal hernia was present. No biopsies or other specimens were collected for this exam. A single 5 mm semi-sessile polyp with no bleeding and no stigmata of recent bleeding was found in the gastric body. Biopsies were taken with a cold forceps for histology. Estimated blood loss: 2 mL requiring treatment with electrocautery. The esophagus was normal. Impression: - Normal first portion of the duodenum and second portion of the duodenum. No specimens collected. - Mucosal nodule found in the duodenum. Biopsied. - Erythematous mucosa in the antrum. Biopsied. - Bilious gastric fluid. No specimens collected. - Z-line regular, 43 cm from the incisors. No specimens collected. - Small hiatal hernia. No specimens collected. - A single gastric polyp. Biopsied. - Normal esophagus. Recommendation: - Discharge patient to home (via wheelchair). - Resume previous diet today. - No aspirin, ibuprofen, naproxen, or other non-steroidal anti-inflammatory drugs for 2 days after biopsy. - Await pathology results. - Telephone my office for pathology results in 1 week. Procedure Code(s): --- Professional --- 22300, Esophagogastroduodenoscopy, flexible, transoral; with biopsy, single or multiple Diagnosis Code(s): --- Professional --- K31.89, Other diseases of stomach and duodenum K44.9, Diaphragmatic hernia without obstruction or gangrene K31.7, Polyp of stomach and duodenum CPT copyright 2021 [employer]. All rights reserved. The codes documented in this report are preliminary and upon barrer and tacker review may be revised to meet current compliance requirements. Derian Guerra MD 12/29/2024 9:14:30 AM This report has been signed electronically. Number of Addenda: 0 Note Initiated On: 12/29/2024 8:21 AM
[2024-12-29 09:30] VITALS: BP 135/50; BP 187/90; PULSE 51; RESP 16; TEMP 36.1; O2SAT 100
== END 2024-12-29 10:08 | disposition home or self-care (01) ==
LOC: EN 07:15 → AC 07:16
PROVIDERS: Visit Provider Surgery
PROC: 0DJ08ZZ Inspection of Upper Intestinal Tract, Via Natural or Artificial Opening Endoscopic (ICD-10-PCS; CPT 43235; principal; 2024-12-29 08:10)
DX: K21.9 Gastro-esophageal reflux disease without esophagitis (principal); K31.7 Polyp of stomach and duodenum; K31.89 Other diseases of stomach and duodenum; K44.9 Diaphragmatic hernia without obstruction or gangrene; E04.2 Nontoxic multinodular goiter; I10 Essential (primary) hypertension; Z87.19 Personal history of other diseases of the digestive system; Z79.899 Other long term (current) drug therapy
CPT/HCPCS: 43239; 88305; 88342; C1889